=== PATIENT | female | born 1950 | race Caucasian/White ===

== ENCOUNTER 2017-01-07 01:15 | Inpatient (IN) | payer OTHER ==
[2017-01-07] VITALS (9 sets, daily range): BP systolic 107–173; BP diastolic 55–84; PULSE 95–108; RESP 15–20; Ht 152.4 cm; Wt 73.0 kg
[~2017-01-07] VITALS: Ht 152.4 cm; Wt 73.0 kg
[2017-01-07 02:41] LABS: AADO2 Arterial 24.8 mmHg (7.0-24.0); Allen Test ACCEPTAB; Arterial Base Excess 6.5 mmol/L (-3.0-3); Arterial COHb 0.3 % (0.0-3.0); Arterial Fraction of Oxyhgb 96.3 % (93.0-99.0); Arterial HCO3 33.7 mmol/L (22.0-26.0); Arterial MetHb 0.4 % (0.0-1.5); Arterial Total Hemglobin 13.5 g/dl (12.0-18.0); MODE NASAL CANNULA
[2017-01-07 02:55] LABS: BASOPHIL # 0.1 10^3/ul (0.0-0.1); EOSINOPHILS # 0.2 10^3/ul (0.0-0.5); HEMATOCRIT 40.4 % (37.0-47.0); HEMOGLOBIN 13.1 g/dl (12.0-16.0); LYMPHOCYTES # 1.3 10^3/ul (0.8-2.9); LYMPHOCYTES % 25.9 % (15.0-51.0); MEAN CORPUSCULAR HEMOGLOBIN 30.8 pg (29.0-33.0); MEAN CORPUSCULAR HGB CONC 32.4 g/dl (32.0-37.0); MEAN CORPUSCULAR VOLUME 95.1 fl (82.0-101.0); MONOCYTE # 0.4 10^3/ul (0.3-0.9); MONOCYTES % 8.9 % (0.0-11.0); PLATELET COUNT 241 10^3/UL (140-415); RED BLOOD COUNT 4.25 10^6/ul (4.20-5.40); RED CELL DISTRIBUTION WIDTH 13.5 % (11.5-14.5)
[2017-01-07 03:20] LABS: INR 1.03; PARTIAL THROMBOPLASTIN TIME 29.2 Sec (25.0-35.0); PROTIME 13.5 Sec (12.2-14.2); PT RATIO 1.1
[2017-01-07 03:23] LABS: ALANINE AMINOTRANSFERASE 59 IU/L (13-69); ALBUMIN 4.3 g/dl (3.3-4.9); ALBUMIN/GLOBULIN RATIO 1.22; ALKALINE PHOSPHATASE 227 IU/L (42-121); ANION GAP 15 (8-16); ASPARTATE AMINO TRANSFERASE 50 IU/L (15-46); BILIRUBIN,INDIRECT 0.3 mg/dl (0-1.1); BILIRUBIN,TOTAL 0.3 mg/dl (0.2-1.3); BLOOD UREA NITROGEN 11 mg/dl (7-20); CALCIUM 9.3 mg/dl (8.4-10.2); CARBON DIOXIDE 34 mmol/L (21-31); CHLORIDE 99 mmol/L (97-110); CREATININE 0.62 mg/dl (0.44-1.00); GLUCOSE 118 mg/dl (70-220); POTASSIUM 3.6 mmol/L (3.5-5.1); SODIUM 144 mmol/L (135-144); TOTAL PROTEIN 7.8 g/dl (6.1-8.1)
[2017-01-07 03:35] LABS: B-TYPE NATRIURETIC PEPTIDE 182 PG/ML (0-125)
[2017-01-07 03:36] LABS: TROPONIN-I < 0.012 ng/ml (0.00-0.12)
--- NOTE | 2017-01-07 03:42 | RADRPT ---
PROCEDURE: CHEST - 1 VIEW CLINICAL INDICATION: 66-year-old female with shortness of breath. TECHNIQUE: A single frontal AP upright portable view of the chest was performed. The images were reviewed on a PACS workstation. COMPARISON: None. FINDINGS: The cardiomediastinal silhouette is within normal limits. There is a shallow inspiration. There is b ilateral lower lung zone subsegmental atelectasis. A superimposed infiltrate cannot be excluded. The re is probable small left pleural effusion. There is no evidence for congestive heart failure. Ther e is no evidence for pneumothorax. Degenerative changes are seen within the spine. IMPRESSION: 1. Shallow inspiration. 2. Bilateral lower lung zone subsegmental atelectasis. 3. Probable small left pleural effusion. 4. Degenerative changes within the spine. .Douglas Rosales MD, Date Time Electronically viewed and signed by .Douglas Rosales MD, on 01/07/2017 03:42 .M/
--- NOTE | 2017-01-07 03:44 | RADRPT ---
PROCEDURE: CT BRAIN WITHOUT CONTRAST CLINICAL INDICATION: 66-year-old female with headaches. TECHNIQUE: The study was performed utilizing [employer] VCT 64-slice CT scanner. Direct axial sections were obtained from the foramen magnum to the vertex without the use of intravenous contrast material. Sagittal and coronal reformations were obtained. The study was repeated secondary to karin ent motion artifact. One or more the following dose reduction techniques were utilized: automated ex posure control, adjustment of the mA and/or kV according to patient's size or use of iterative recon struction technique. The images were viewed on a PACS workstation. CTD/vol = 90.0 mGy; Total Exam DL P = 1440.5 mGy-cm. COMPARISON: None. FINDINGS: There is mild degree of diffuse cortical and central atrophy with compensatory ventricular enlargeme nt. There is no evidence for mass effect or midline shift. There are periventricular areas of decr eased density consistent with microangiopathic ischemic changes. There is no evidence for acute int ra or extra-axial blood. Calcifications are seen within the intracranial carotid arteries bilaterall y. The bony calvarium is intact. There is minimal mucosal thickening within the ethmoid air cells bi laterally. No air-fluid levels are noted. The mastoid air cells are without significant soft tissue. IMPRESSION: 1. Mild diffuse atrophy. 2. Microangiopathic ischemic changes. 3. Minimal mucosal thickening ethmoid air cells. .Douglas Rosales MD, Date Time Electronically viewed and signed by .Douglas Rosales MD, on 01/07/2017 03:44 .M/
--- NOTE | 2017-01-07 05:41 | ERA ---
ER Documentation Chief Complaint Date/Time DATE: 01/07/17 TIME: 05:40 Chief Complaint SOB at rest for a couple of months worse in last 2 hours HPI This is a 66-year-old female comes in with shortness of breath at rest for a couple months worse in the last 2-3 hours. Denies any fevers or chills. Denies any nausea vomiting. Denies any chest pain. Denies any other current complaints. ROS All systems reviewed and are negative except as per history of present illness. Allergies Allergies: Coded Allergies: No Known Allergy (Unverified , 01/07/17) PMhx/Soc History of Surgery: Yes (hysterectomy 1996) Anesthesia Reaction: No Hx Neurological Disorder: No Hx Respiratory Disorders: No Hx Cardiac Disorders: Yes (HTN, high cholesterol) Hx Psychiatric Problems: No Hx Miscellaneous Medical Probl: Yes (fibromyalgia,osteoarthritis,cervical & lumbar spine degeneration) Hx Alcohol Use: No Hx Substance Use: No Hx Tobacco Use: No Smoking Status: Never smoker Physical Exam Vitals Vital Signs Date Time Temp Pulse Resp B/P Pulse Ox O2 Delivery O2 Flow Rate FiO2 01/07/17 05:02 93 21 148/70 98 Nasal Cannula 2.0 01/07/17 02:48 98 2.0 01/07/17 02:16 Nasal Cannula 2 01/07/17 01:55 Nasal Cannula 2.0 01/07/17 01:55 96 25 181/78 96 Nasal Cannula 2.0 01/07/17 01:19 97.5 96 20 135/72 94 Physical Exam Const: [] Head: Atraumatic Eyes: Normal Conjunctiva ENT: Normal External Ears, Nose and Mouth. Neck: Full range of motion..~ No meningismus. Resp: Clear to auscultation bilaterally Cardio: Regular rate and rhythm, no murmurs Abd: Soft, non tender, non distended. Normal bowel sounds Skin: No petechiae or rashes Back: No midline or flank tenderness Ext: No cyanosis, or edema Neur: Awake and alert Psych: Normal Mood and Affect Result Diagram: 01/07/1721401/07/17214 Results 24 hrs Laboratory Tests Test 01/07/17 01:49 01/07/17 02:15 Blood Gas Specimen Source Blood arterial Arterial Blood Date Drawn 01/07/2017 2:35:20 AM Arterial Blood pH (Temp corrected) 7.367 Arterial Blood pCO2 (Temp correct) 60.1mmhg Arterial Blood pO2 (Temp corrected) 96.6mmHG Arterial Blood HCO3 33.7mmol/L Arterial Blood Base Excess 6.5mmol/L Arterial Blood Oxygen Saturation 97.0mmHG Juan M Test ACCEPTAB Arterial Blood Gas Puncture Site Right Brachial Arterial Blood Carboxyhemoglobin 0.3% Arterial Blood Methemoglobin 0.4% Blood Gas A-a O2 Differential 24.8mmHg Oxyhemoglobin Percent 96.3% Total Hemoglobin 13.5g/dl Blood Gas Temperature 37.0C Blood Gas Modality NASAL CANNULA FiO2 27.0% Blood Gas Notified Whom MG Blood Gas Notified Time 01/07/2017 2:41:47 AM White Blood Count 5.010^3/ul Red Blood Count 4.2510^6/ul Hemoglobin 13.1g/dl Hematocrit 40.4% Mean Corpuscular Volume 95.1fl Mean Corpuscular Hemoglobin 30.8pg Mean Corpuscular Hemoglobin Concent 32.4g/dl Red Cell Distribution Width 13.5% Platelet Count 26825^3/UL Mean Platelet Volume 10.0fl Neutrophils % 61.0% Lymphocytes % 25.9% Monocytes % 8.9% Eosinophils % 3.0% Basophils % 1.0% Nucleated Red Blood Cells % 0.0/100WBC Neutrophils # 3.010^3/ul Lymphocytes # 1.310^3/ul Monocytes # 0.410^3/ul Eosinophils # 0.210^3/ul Basophils # 0.110^3/ul Nucleated Red Blood Cells # 0.010^3/ul Prothrombin Time 13.5Sec Prothrombin Time Ratio 1.1 INR International Normalized Ratio 1.03 Activated Partial Thromboplast Time 29.2Sec Sodium Level 144mmol/L Potassium Level 3.6mmol/L Chloride Level 99mmol/L Carbon Dioxide Level 34mmol/L Anion Gap 15 Blood Urea Nitrogen 11mg/dl Creatinine 0.62mg/dl Glucose Level 118mg/dl Calcium Level 9.3mg/dl Total Bilirubin 0.3mg/dl Direct Bilirubin 0.00mg/dl Indirect Bilirubin 0.3mg/dl Aspartate Amino Transf (AST/SGOT) 50IU/L Alanine Aminotransferase (ALT/SGPT) 59IU/L Alkaline Phosphatase 227IU/L Troponin I < 0.012ng/ml B-Type Natriuretic Peptide 182PG/ML Total Protein 7.8g/dl Albumin 4.3g/dl Globulin 3.50g/dl Albumin/Globulin Ratio 1.22 Procedures/MDM EKG: Rate/Rhythm: [Normal Sinus Rhythm] QRS, ST, T-waves: [No changes consistent w/ acute ischemia] Impression: [No evidence of ischemia or arrhythmia] Chest X-ray 1V Interpreted by me: Soft Tissue: No acute abnormalities Bones: No acute abnormalities Mediastinum/Cardiac Silhouette/Lungs: [No acute abnormalities] Female shortness of breath. Arterial blood gas shows retained CO2. Respiratory acidosis likely secondary to undiagnosed underlying lung issue. Patient will be admitted to Dr. Young who is on-call for further evaluation and management Departure Diagnosis: Primary Impression: Shortness of breath Additional Impression: Respiratory acidosis Condition: Serious NBA NAYAK Jan 07, 2017 05:41
[2017-01-07] MEDS ORDERED: DICL50TA11 PO (08:10)
[2017-01-07] MEDS ORDERED: GABA300T24 PO (08:12)
[2017-01-07] MEDS ORDERED: ATOR40TA68 PO (08:12)
[2017-01-07] MEDS ORDERED: DOCU100C2 PO (08:12)
[2017-01-07] MEDS ORDERED: BUPR75TA9 PO (08:12)
[2017-01-07] MEDS ORDERED: hydrALAzine 20 MG INJ IV PRN (11:30)
[2017-01-07] MEDS: LEVALBUTEROL (NEB) 0.63 MG/3 ML AMP HHN PRN ×3 (12:35→23:12)
[2017-01-07] MEDS ORDERED: LOSA25TA5 PO (14:12)
--- NOTE | 2017-01-07 16:30 | CONS ---
Date/Time of Note Date/Time of Note DATE: 01/07/17 TIME: 16:30 Consultation Date/Type/Reason Admit Date/Time Jan 07, 2017 at 05:41 Date of Consultation: Jan 07, 2017 Type of Consultation: pulmonary Hx of Present Illness dictated # [id number] Social History Smoking Status: Never smoker Exam/Review of Systems Vital Signs Vitals Vital Signs Date Time Temp Pulse Resp B/P Pulse Ox O2 Delivery O2 Flow Rate FiO2 01/07/17 16:13 108 01/07/17 15:10 97.6 20 127/60 95 01/07/17 08:35 3.0 01/07/17 06:52 Nasal Cannula Results Result Diagram: 01/07/17 0215 01/07/17 0215 Results 24 hrs Laboratory Tests Test 01/07/17 01:49 01/07/17 02:15 Blood Gas Specimen Source Blood arterial Arterial Blood Date Drawn 01/07/2017 2:35:20 AM Arterial Blood pH (Temp corrected) 7.367 Arterial Blood pCO2 (Temp correct) 60.1 H Arterial Blood pO2 (Temp corrected) 96.6 Arterial Blood HCO3 33.7 H Arterial Blood Base Excess 6.5 H Arterial Blood Oxygen Saturation 97.0 Juan M Test ACCEPTAB Arterial Blood Gas Puncture Site Right Brachial Arterial Blood Carboxyhemoglobin 0.3 Arterial Blood Methemoglobin 0.4 Blood Gas A-a O2 Differential 24.8 H Oxyhemoglobin Percent 96.3 Total Hemoglobin 13.5 Blood Gas Temperature 37.0 Blood Gas Modality NASAL CANNULA FiO2 27.0 Blood Gas Notified Whom MG Blood Gas Notified Time 01/07/2017 2:41:47 AM White Blood Count 5.0 Red Blood Count 4.25 Hemoglobin 13.1 Hematocrit 40.4 Mean Corpuscular Volume 95.1 Mean Corpuscular Hemoglobin 30.8 Mean Corpuscular Hemoglobin Concent 32.4 Red Cell Distribution Width 13.5 Platelet Count 241 Mean Platelet Volume 10.0 Neutrophils % 61.0 Lymphocytes % 25.9 Monocytes % 8.9 Eosinophils % 3.0 Basophils % 1.0 Nucleated Red Blood Cells % 0.0 Neutrophils # 3.0 Lymphocytes # 1.3 Monocytes # 0.4 Eosinophils # 0.2 Basophils # 0.1 Nucleated Red Blood Cells # 0.0 Prothrombin Time 13.5 Prothrombin Time Ratio 1.1 INR International Normalized Ratio 1.03 Activated Partial Thromboplast Time 29.2 Sodium Level 144 Potassium Level 3.6 Chloride Level 99 Carbon Dioxide Level 34 H Anion Gap 15 Blood Urea Nitrogen 11 Creatinine 0.62 Glucose Level 118 Calcium Level 9.3 Total Bilirubin 0.3 Direct Bilirubin 0.00 Indirect Bilirubin 0.3 Aspartate Amino Transf (AST/SGOT) 50 H Alanine Aminotransferase (ALT/SGPT) 59 Alkaline Phosphatase 227 H Troponin I < 0.012 B-Type Natriuretic Peptide 182 H Total Protein 7.8 Albumin 4.3 Globulin 3.50 H Albumin/Globulin Ratio 1.22 Medications Medications Current Medications Hydralazine HCl (Apresoline) 20 mg Q6H PRN IV for SBP >165 Last administered on 01/07/17t 11:52; Admin Dose 20 MG; Start 01/07/17 at 11:30 Atorvastatin Calcium (Lipitor) 40 mg QHS PO ; Start 01/07/17 at 21:00 Bupropion HCl (Wellbutrin) 75 mg BID PO ; Start 01/07/17 at 21:00 Docusate Sodium (Colace) 100 mg DAILY PO ; Start 01/08/17 at 09:00 Losartan Potassium (Cozaar) 25 mg DAILY PO ; Start 01/08/17 at 09:00 Gabapentin 300 mg 300 mg TID PO ; Start 01/07/17 at 21:00 Potassium Chloride/Dextrose/ Sod Cl (D5-1/2ns + KCl 20 Meq) 1,000 ml @ 50 mls/ hr Q20H IV ; Start 01/07/17 at 15:30 BILL DELGADILLO Jan 07, 2017 16:30
--- NOTE | 2017-01-07 16:41 | HP ---
DATE OF ADMISSION: 01/07/2017 CHIEF COMPLAINT: Shortness of breath. HISTORY OF PRESENT ILLNESS: The patient is a 66-year-old female, with history of fibromyalgia, osteoarthritis, and cervical stenosis, with bilateral upper extremity weakness. Patient with history of subdural hematoma diagnosed in April of this year and significant decrease in mobility. Patient is awake, alert; however, cannot provide detailed history. Most of the history was obtained from patient's daughter at the bedside, who is the caregiver for the patient. Apparently, patient was seen by her primary care physician, Dr. Rodriguez. Family stated that the patient deteriorated in mobility and also got more confused and forgetful, and patient was ordered to undergo MRI of the brain. However, patient could not undergo outpatient MRI, due to the fact that she could not lie down flat and appeared in respiratory distress and was sent to the emergency room of [facility] [place]. On evaluation in the emergency room, patient underwent chest x- ray, which revealed shallow inspiration, bilateral low lung zone subsegmental atelectasis, probable small left pleural effusion and degenerative changes within the spine. A superimposed infiltrate cannot be excluded. Patient also underwent brain CT, which may revealed mild diffuse atrophy, microangiopathic ischemic changes, and minimal mucosal thickening, ethmoid air cells. Patient also was placed on supplemental oxygen for complaints of shortness of breath. Patient underwent ABG, which revealed respiratory acidosis. Patient denies any fever. Denies any nausea or vomiting; however, complains of mild epigastric tenderness on palpation. During the examination patient also complains of left upper extremity pain and mild chest pain, and patient is admitted for further evaluation and management to telemetry floor. PAST MEDICAL HISTORY: Per HPI. PAST SURGICAL HISTORY: Patient had a hysterectomy in 1996. FAMILY HISTORY: Noncontributory. SOCIAL HISTORY: Patient lives with her daughter and . Patient had no prior history of alcohol use, tobacco use or illicit drug use. ALLERGIES: NO KNOWN ALLERGIES. HOME MEDICATIONS: Include: 1. Atorvastatin. 2. Wellbutrin. 3. Diclofenac sodium. 4. Colace. 5. Cozaar. 6. Gabapentin. REVIEW OF SYSTEMS: A 12-point review of system is negative, unless what is mentioned in HPI. PHYSICAL EXAMINATION: GENERAL: Well-developed, obese female, currently is awake, alert, on supplemental oxygen. VITAL SIGNS: Temperature is 97.5, pulse is 93, blood pressure 148/70, , oxygen saturation 98 percent on 2 L nasal cannula. HEENT: Head is atraumatic, normocephalic. Pupils equal, round, reactive to light and accommodation. Oral mucosa is pink, moist. NECK: Supple. No cervical lymphadenopathy. No thyromegaly. LUNGS: Diminished at the bases. Clear in the upper lobes. No rhonchi or rales noted. CARDIOVASCULAR: Normal S1, S2. No murmurs, gallops, clicks, rubs noted. ABDOMEN: Round, soft, nondistended. Patient has epigastric tenderness, has no guarding, no rebound tenderness. EXTREMITIES: Mild edema, 2+. SKIN: There is no rash, petechiae noted. NEUROLOGICAL: Patient is awake, alert, and oriented to name and situation and moves all extremities. LABORATORY DATA: On admission, CBC: White blood cells 5.0, hemoglobin 13.1, hematocrit 40.4, platelets 241. Chemistry: Sodium was 144, potassium 3.6, chloride 99, carbon dioxide 34, anion gap 15, BUN is 11, creatinine 0.62, glucose 118. AST is 50, ALT 59, alkaline phosphatase 227. Troponin less than 0.012. BNP is 182. PT is 13.1, INR is 1.03, aPTT is 29.2. ASSESSMENT AND PLAN: 1. Hypercapnic respiratory failure. Going to continue patient on supplemental oxygen and breathing treatment for shortness of breath. Dr. Jasso is asked to see patient in Pulmonology consultation. Will start patient on Levaquin for possible community-acquired pneumonia, bronchitis. 2. Rule out acute coronary syndrome. Will obtain cardiac enzymes q.[address] Patel is asked to see patient in Cardiology consultation since patient complains of chest pain. 3. History of subdural hematoma, with recent mental and physical decline in the last 6 months. Will obtain MRI of the brain when patient is more stable. 4. Possible cervical stenosis. 5. History of fibromyalgia. PLAN: 1. Will start Pepcid for peptic ulcer disease prophylaxis and Lovenox for deep venous thrombosis prophylaxis. 2. Continue Cozaar for hypertension. 3. Further recommendations based on clinical course. 4. Plan of care discussed with Dr. Venegas. Dictated By: Cinda Barlow NP /fnt/adonis /Document#: [id number]
[2017-01-07] MEDS: D5W-0.45 NACL + KCL 20 MEQ 1,000 ML IV SCH (16:52)
[2017-01-07 17:01] LABS: CK-MB 5.21 ng/ml (0.0-2.4); TROPONIN-I 0.04 ng/ml (0.00-0.12)
--- NOTE | 2017-01-07 17:05 | CONS ---
Date/Time of Note Date/Time of Note DATE: 01/07/17 TIME: 17:00 Assessment/Plan Assessment/Plan Additional Assessment/Plan Dyspnea Weakness -Patient with symptoms of dyspnea with lying down as well as not feeling she can take in a deep breath. Initial ECG with no significant ischemic abnormalities, first set of cardiac enzymes are negative. Will obtain serial cardiac enzymes, echocardiogram. Discussion with patient's daughter, patient with progressive weakness over the past 6 months and almost unable to ambulate informing contractures in her upper arms. Her voice has changed as well. Symptoms are concerning for possible neurologic pathology as etiology of her symptoms. Would recommend neurologic evaluation as well. Consultation Date/Type/Reason Admit Date/Time Jan 07, 2017 at 05:41 Type of Consultation: cv Reason for Consultation Shortness of breath Hx of Present Illness This is a 66-year-old female with past medical history of fibromyalgia, progressive weakness over the past 6 months who presents secondary to shortness of breath. Patient was planned for MRI of the brain today as per the family and could not lie down flat because of shortness of breath. Patient has been having issues with shortness of breath with lying down flat progressing over the past few weeks. Her activity has been quite limited by her severe weakness. She also feels short winded at times with speaking. She feels at times she cannot take in a deep breath. She denies any chest pain but does complain of pain in her neck, shoulders and bilateral arms. She also complains of lower extremity weakness and progressive edema as well over the past few months. Patient is undergoing workup for these reasons. 12 point review of systems was performed with all pertinent positives and negatives mentioned above and all else is negative Past Medical History Fibromyalgia Social History Alcohol Use: none Smoking Status: Never smoker Other Social History Lives at home with family Exam/Review of Systems Vital Signs Vitals Vital Signs Date Time Temp Pulse Resp B/P Pulse Ox O2 Delivery O2 Flow Rate FiO2 01/07/17 16:13 108 01/07/17 15:10 97.6 20 127/60 95 01/07/17 08:35 3.0 01/07/17 06:52 Nasal Cannula Exam Slow in responding, appears weak, family at bedside Constitutional: alert, oriented Head: normocephalic Respiratory: other (Coarse breath sounds bilaterally, no wheezing) Cardiovascular: other (S1-S2 heard, no murmurs appreciated), regular rate and rhythm Gastrointestinal: bowel sounds, non-tender, soft Extremities: edema Results Result Diagram: 01/07/17 0215 01/07/17 0215 Results 24 hrs Laboratory Tests Test 01/07/17 01:49 01/07/17 02:15 01/07/17 16:20 Blood Gas Specimen Source Blood arterial Arterial Blood Date Drawn 01/07/2017 2:35:20 AM Arterial Blood pH (Temp corrected) 7.367 Arterial Blood pCO2 (Temp correct) 60.1 H Arterial Blood pO2 (Temp corrected) 96.6 Arterial Blood HCO3 33.7 H Arterial Blood Base Excess 6.5 H Arterial Blood Oxygen Saturation 97.0 Juan M Test ACCEPTAB Arterial Blood Gas Puncture Site Right Brachial Arterial Blood Carboxyhemoglobin 0.3 Arterial Blood Methemoglobin 0.4 Blood Gas A-a O2 Differential 24.8 H Oxyhemoglobin Percent 96.3 Total Hemoglobin 13.5 Blood Gas Temperature 37.0 Blood Gas Modality NASAL CANNULA FiO2 27.0 Blood Gas Notified Whom MG Blood Gas Notified Time 01/07/2017 2:41:47 AM White Blood Count 5.0 Red Blood Count 4.25 Hemoglobin 13.1 Hematocrit 40.4 Mean Corpuscular Volume 95.1 Mean Corpuscular Hemoglobin 30.8 Mean Corpuscular Hemoglobin Concent 32.4 Red Cell Distribution Width 13.5 Platelet Count 241 Mean Platelet Volume 10.0 Neutrophils % 61.0 Lymphocytes % 25.9 Monocytes % 8.9 Eosinophils % 3.0 Basophils % 1.0 Nucleated Red Blood Cells % 0.0 Neutrophils # 3.0 Lymphocytes # 1.3 Monocytes # 0.4 Eosinophils # 0.2 Basophils # 0.1 Nucleated Red Blood Cells # 0.0 Prothrombin Time 13.5 Prothrombin Time Ratio 1.1 INR International Normalized Ratio 1.03 Activated Partial Thromboplast Time 29.2 Sodium Level 144 Potassium Level 3.6 Chloride Level 99 Carbon Dioxide Level 34 H Anion Gap 15 Blood Urea Nitrogen 11 Creatinine 0.62 Glucose Level 118 Calcium Level 9.3 Total Bilirubin 0.3 Direct Bilirubin 0.00 Indirect Bilirubin 0.3 Aspartate Amino Transf (AST/SGOT) 50 H Alanine Aminotransferase (ALT/SGPT) 59 Alkaline Phosphatase 227 H Troponin I < 0.012 Pending B-Type Natriuretic Peptide 182 H Total Protein 7.8 Albumin 4.3 Globulin 3.50 H Albumin/Globulin Ratio 1.22 Creatine Kinase 565 H Creatine Kinase Index Pending Creatinine Kinase MB (Mass) Pending Medications Medications Current Medications Hydralazine HCl (Apresoline) 20 mg Q6H PRN IV for SBP >165 Last administered on 01/07/17 11:52; Admin Dose 20 MG; Start 01/07/17 at 11:30 Atorvastatin Calcium (Lipitor) 40 mg QHS PO ; Start 01/07/17 at 21:00 Bupropion HCl (Wellbutrin) 75 mg BID PO ; Start 01/07/17 at 21:00 Docusate Sodium (Colace) 100 mg DAILY PO ; Start 01/08/17 at 09:00 Losartan Potassium (Cozaar) 25 mg DAILY PO ; Start 01/08/17 at 09:00 Gabapentin 300 mg 300 mg TID PO ; Start 01/07/17 at 21:00 Potassium Chloride/Dextrose/ Sod Cl (D5-1/2ns + KCl 20 Meq) 1,000 ml @ 50 mls/ hr Q20H IV Last administered on 01/07/17 16:52; Admin Dose 50 MLS/HR; Start at 15:30 Procedures Procedures ECG demonstrates sinus tachycardia 108 bpm, QRS 86 ms, no significant ischemic STT wave abnormalities Carlos Patel DO Jan 07, 2017 17:05
--- NOTE | 2017-01-07 17:31 | RADRPT ---
Echocardiogram Report Patient Name: LUISA BOND Gender: Female Date: 1950 Study Date: 07-Jan-2017 Medical Technologist Hematology: Kristy [facility] Location: 506 Ref. Physician: KRISTOPHER REED Quality: Adequate Procedures: Transthoracic echocardiogram with complete 2D, M-Mode, and doppler examination. Indications: Evaluate Left Ventricular function. 2D/M Mode Doppler Measurement Value Normal Ranges Measurement Value Normal Ranges LVIDd 2D 3.1 3.5 - 5.6 cm AV Peak Rashad 1.5 m/sec LVIDs 2D 2.1 2.1 - 4.1 cm AV Peak PG 9.0 mmHg FS 2D 30.7 % LVOT Peak Rashad 1.1 m/sec LVPWd 2D 1.5 0.6 - 1.1 cm LVOT Peak PG 5.0 mmHg IVSd 2D 1.5 0.6 - 1.1 cm MV E Peak Rashad 0.7 m/sec IVS/LVPW 2D 1.0 MV A Peak Rashad 1.0 m/sec AoR Diam 2D 2.7 2.0 - 3.7 cm MV E/A 0.6 LA/Ao 2D 1 0 - 1 MV Decel Time 144 msec EDV 2D 29.5 cm3 MV E/A 0.6 ESV 2D 9.8 cm3 LA Dimen 2D 2.3 2.3 - 4.0 cm Findings Left Ventricle: Overall, normal left ventricular systolic function. Not all segments visualized. Normal left ventricular cavity size. Moderate concentric left ventricular hypertrophy. Ejection fraction is visually estimated at 65 %. Abnormal Diastolic Function. Right Ventricle: Normal right ventricular size. Normal right ventricular systolic function. Left Atrium: The left atrium is normal in size. Right Atrium: The right atrium is normal in size. Mitral Valve: Mild mitral leaflet calcification. Mild mitral annular calcification. Trace mitral regurgitation. Aortic Valve: Aortic sclerosis without stenosis. Trace aortic valve regurgitation. Tricuspid Valve: Normal appearance and function of the tricuspid valve with trace physiologic regurgitation. Pulmonic Valve: Pulmonic valve not well visualized. There is trace pulmonic regurgitation. Pericardium: Normal pericardium with no significant pericardial effusion. Aorta: Normal aortic root. IVC: Normal size and normal respiratory collapse consistent with normal right atrial pressure. Conclusions Overall, normal left ventricular systolic function. Not all segments visualized. Normal left ventricular cavity size. Moderate concentric left ventricular hypertrophy. Ejection fraction is visually estimated at 65 %. Abnormal Diastolic Function. Normal right ventricular size. Normal right ventricular systolic function. The left atrium is normal in size. The right atrium is normal in size. No significant valvular stenosis or regurgitation seen. Normal pericardium with no significant pericardial effusion. Electronically Signed By: Carlos Patel 07-Jan-2017 17:30:24 -0700 Patient Name: LUISA BOND Study Date: 07-Jan-[id number]
--- NOTE | 2017-01-07 18:19 | RADRPT ---
PROCEDURE: Ultrasound of the bilateral lower extremity venous system. CLINICAL INDICATION: Bilateral leg pain and swelling, deep venous thrombosis TECHNIQUE: Crook scale with and without compression, color doppler, spectral doppler of the venous system of the bilateral lower extremities was performed. Venous augmentation maneuvers were utilized . COMPARISON: No prior studies are available for comparison. FINDINGS: Right: Common femoral vein: Patent. Femoral vein: Patent. Popliteal vein: Patent. Calf veins: Patent. No soft tissue abnormalities are identified. Left: Common femoral vein: Patent. Femoral vein: Patent. Popliteal vein: Patent. Calf veins: Patent. No soft tissue abnormalities are identified. IMPRESSION: No evidence of a deep vein thrombosis within the bilateral lower extremities. RPTAT: AADD .Keith Galvan MD, MD Date Time Electronically viewed and signed by .Keith Galvan MD, on 01/07/2017 18:19 .B/
[2017-01-07] MEDS ORDERED: GABAPENTIN 300 MG CAP ONE (19:09)
[2017-01-07] MEDS: GABAPENTIN 300 MG CAP PO SCH (19:11)
[2017-01-07] MEDS: ATORVASTATIN 40 MG TAB PO SCH (21:20)
[2017-01-07] MEDS: BUPROPION 75 MG TAB PO SCH (21:20)
[2017-01-07 21:59] LABS: CK-MB 4.83 ng/ml (0.0-2.4); TROPONIN-I 0.056 ng/ml (0.00-0.12)
[2017-01-08] VITALS (16 sets, daily range): BP systolic 116–156; BP diastolic 57–74; PULSE 95–107; RESP 17–20
--- NOTE | 2017-01-08 02:15 | CONS ---
DATE OF ADMISSION: 01/07/2017 DATE OF CONSULTATION: 01/07/2017 REFERRING PHYSICIAN: Dr. Venegas. REASON FOR CONSULTATION: Evaluation of hypercapnic respiratory failure. HISTORY OF PRESENT ILLNESS: Ms. Sharp is a pleasant 66-year-old lady who came into the emergency room with a few-day history of increasing shortness of breath. According to the patient's family, the patient was supposed to undergo MRI of the brain and neck for evaluation of chronic neck pain, as well as a right- sided weakness, but was deemed too high of a risk because of patient's lethargy. The MRI study was canceled and the patient was sent home. However, according to the daughter over the next day, the patient became increasingly more lethargic. She was brought into the ER where an ABG was done, which is showing hypercapnia without any significant respiratory decompensation or respiratory acidosis. By the time I saw the patient, the patient is completely awake, alert, feeling better. Denies any chest pain. Complains of shortness of breath upon exertion, as well as shortness of breath upon lying down for the last several weeks. Denies any fever. Complains of weak nonspecific chest pain across the upper part of the left chest, increased by certain movements. The patient also is having increasing weakness involving the right side of the body that was necessitating MRI study, which was not performed. The patient denies any abdominal pain, nausea, vomiting. PAST MEDICAL HISTORY: 1. History of chronic neck pain. 2. According to the patient's daughter, the patient is getting increasingly more lethargic over the last few weeks. 3. No history of any coronary artery disease. 4. Hypertension. 5. Diabetes. 6. History of hysterectomy. 7. No history of any known CHF. 8. Possible underlying obstructive sleep apnea. 9. No history of any asthma. 10. Patient also with a history of fibromyalgia. MEDICATION: Patient is currently on: 1. D5 half-normal saline at a KVO. 2. Atorvastatin 40 mg a day. 3. Wellbutrin 75 mg b.i.d. 4. Colace 100 mg daily. 5. Neurontin 300 mg t.i.d. 6. Hydralazine on a p.r.n. basis IV. 7. Xopenex q.4 hours. 8. Cozaar 25 mg daily. ALLERGIES: NONE. SOCIAL HISTORY: Never smoked. No history of alcohol or drug abuse. FAMILY HISTORY: Patient is . She has 4 children. 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 REVIEW OF SYSTEMS: Denies any headache, visual changes, sinus symptoms, postnasal drip, dysphagia or odynophagia. Complains of dyspnea on exertion. Complains of orthopnea. Has gained weight. Denies any edema. Complains of snoring and daytime sleepiness. Denies any urinary symptoms. Denies any melena or hematochezia. PHYSICAL EXAMINATION: GENERAL: Elderly woman, awake, currently in no distress. VITAL SIGNS: Temperature is 98 degrees Fahrenheit, respiratory rate is 18 per minute, blood pressure is 127/64, O2 sat 95 percent. HEENT: Supple neck. No JVD. No lymphadenopathy. Midline trachea. No thyromegaly. Pharynx is clear. No neck bruits. Patient is edentulous and wears upper dentures. CHEST: Diminished breath sounds bilaterally without any added sounds. CARDIAC: S1, S2 audible. No murmurs. Regular rhythm. ABDOMEN: Soft, nontender. No organomegaly. Bowel sounds audible. EXTREMITIES: No edema. Pulses 1+ bilaterally. SCALE AGENT: No focal motor deficit. Chest. IMAGING STUDIES: Chest x-ray was reviewed from today, which is showing mild bibasilar atelectasis. LABORATORY: ABG done at 1:49 a.m. today on 27 percent FiO2: pH 7.36, CO2 of 60, PO2 of 96, O2 sat 95 percent. Sodium 144, potassium 3.6, chloride 99, bicarb 34, BUN 11, creatinine 0.6. Alk phos 227, AST of 50, ALT of 59. BNP level of 182. White count 5, hemoglobin 13.1, platelet count of 241. ASSESSMENT: 1. Patient admitted for shortness of breath due to hypoventilation, possibly from cervical spine disease. Patient was supposed to have MRI of the cervical spine done, which could not be done because of her compromised respiratory status. 2. Possible underlying sleep apnea. 3. Fibromyalgia. 4. Diabetes and hypertension. RECOMMENDATIONS: Start BiPAP with 12/5, 40 percent FiO2 with a backup rate of 16. Continue current supportive care. Dictated By: Iglesia Jasso MD /lan/[email or web address] /Document#: [id number]
[2017-01-08 07:32] LABS: BASOPHIL # 0.1 10^3/ul (0.0-0.1); BASOPHILS % 0.8 % (0.0-2.0); EOSINOPHILS # 0.1 10^3/ul (0.0-0.5); EOSINOPHILS % 1.5 % (0.0-7.0); HEMATOCRIT 37.3 % (37.0-47.0); LYMPHOCYTES # 0.9 10^3/ul (0.8-2.9); LYMPHOCYTES % 14.8 % (15.0-51.0); MEAN CORPUSCULAR HEMOGLOBIN 31.2 pg (29.0-33.0); MEAN CORPUSCULAR HGB CONC 32.2 g/dl (32.0-37.0); MEAN CORPUSCULAR VOLUME 96.9 fl (82.0-101.0); MEAN PLATELET VOLUME 10.1 fl (7.4-10.4); MONOCYTE # 0.5 10^3/ul (0.3-0.9); NEUTROPHIL # 4.4 10^3/ul (1.6-7.5); NEUTROPHILS % 74.7 % (39.0-77.0); PLATELET COUNT 238 10^3/UL (140-415); RED BLOOD COUNT 3.85 10^6/ul (4.20-5.40); RED CELL DISTRIBUTION WIDTH 13.4 % (11.5-14.5); WHITE BLOOD COUNT 5.9 10^3/ul (4.8-10.8)
[2017-01-08 08:09] LABS: CALCIUM 8.7 mg/dl (8.4-10.2); CREATININE 0.52 mg/dl (0.44-1.00); POTASSIUM 3.6 mmol/L (3.5-5.1)
[2017-01-08] MEDS: DOCUSATE SODIUM 100 MG CAP PO SCH (09:19)
[2017-01-08] MEDS: GABAPENTIN 300 MG CAP PO SCH ×3 (09:19→21:32)
[2017-01-08] MEDS: BUPROPION 75 MG TAB PO SCH ×2 (09:19→21:32)
[2017-01-08] MEDS: LOSARTAN 25 MG TAB PO SCH (09:20)
[2017-01-08] MEDS: D5W-0.45 NACL + KCL 20 MEQ 1,000 ML IV SCH (11:30)
--- NOTE | 2017-01-08 11:52 | CONS ---
Date/Time of Note Date/Time of Note DATE: 01/08/17 TIME: 11:44 Assessment/Plan Assessment/Plan Chief Complaint/Hosp Course 66 yo female with history of cervical degenerative disease, frequent falls prior SDH admitted with worsening SOB. CTH showed no acute process, sub-acute/chronic ischemic changes notable in Right MCA territory diffuse small vessel disease. Recommendations: Obtain MRI Brain and MRI Cervical Spine without contrast Check CPK, aldolase, B12, TSH would also recommend further outpatient EMG/NCV studies to evaluate for neuromuscular disease will follow Problems: Consultation Date/Type/Reason Admit Date/Time Jan 07, 2017 at 05:41 Date of Consultation: Jan 08, 2017 Type of Consultation: Neurology Reason for Consultation evaluation for neuromuscular disease Referring Provider: KRISTOPHER REED Hx of Present Illness 66 year old female with history of SDH few months ago with recurrent falls, fibromyalgia, chronic neck pain admitted with worsening SOB. She was scheduled to have an MRI Brain and Neck for evaluation of neck pain and complaint of recent right sided weakness, but was unable to tolerate due to SOB was unable to lay flat brought into the ER for further evaluation. Per daughter she reports her mother has slowed down over the past 7 months, is less sharp than she used to be, has recent difficulty ambulating due to this right sided weakness with falls, complaining of recent difficulty swallowing as well and has lost 10-15 pounds in the past few months. fatigue chest pain right sided weakness SOB Social History Alcohol Use: none Smoking Status: Never smoker Exam/Review of Systems Vital Signs Vitals Vital Signs Date Time Temp Pulse Resp B/P Pulse Ox O2 Delivery O2 Flow Rate FiO2 01/08/17 11:29 98.7 93 17 116/57 98 01/08/17 08:00 Nasal Cannula 3.0 01/08/17 05:35 40 Intake and Output 01/07/17 01/07/17 01/08/17 15:00 23:00 07:00 Intake Total 250 ml Balance 250 ml Exam awake and alert flat affected oriented to self hospital date and family follows commands no aphasia CN: JOE, VFF, EOMI, no sig facial asymmetry hypophonic voice tongue fasciculations are present Motor: lifts both UE anti-gravity with distal weakness present in left hand from prior fracture 3/5 strength weakness more notable in the right compared to left LE - LLE 4-/5 strength, RLE 3/5 strength Coordination difficult to perform due to weakness in UE Reflexes 2+ UE, absent Knee jerk and AJ patient unable to ambulate requires more than 2 person assist Results Result Diagram: 01/08/17 0701 01/08/17 0701 Results 24 hrs Laboratory Tests Test 01/07/17 16:20 01/07/17 20:32 01/08/17 07:01 Creatine Kinase 565 H 580 H Creatine Kinase Index 0.9 0.8 Creatinine Kinase MB (Mass) 5.21 H 4.83 H Troponin I 0.040 0.056 White Blood Count 5.9 Red Blood Count 3.85 L Hemoglobin 12.0 Hematocrit 37.3 Mean Corpuscular Volume 96.9 Mean Corpuscular Hemoglobin 31.2 Mean Corpuscular Hemoglobin Concent 32.2 Red Cell Distribution Width 13.4 Platelet Count 238 Mean Platelet Volume 10.1 Neutrophils % 74.7 Lymphocytes % 14.8 L Monocytes % 8.0 Eosinophils % 1.5 Basophils % 0.8 Nucleated Red Blood Cells % 0.0 Neutrophils # 4.4 Lymphocytes # 0.9 Monocytes # 0.5 Eosinophils # 0.1 Basophils # 0.1 Nucleated Red Blood Cells # 0.0 Sodium Level 138 Potassium Level 3.6 Chloride Level 98 Carbon Dioxide Level 36 H Anion Gap 8 Blood Urea Nitrogen 8 Creatinine 0.52 Glucose Level 134 Calcium Level 8.7 Medications Medications Current Medications Hydralazine HCl (Apresoline) 20 mg Q6H PRN IV for SBP >165 Last administered on 01/07/17 11:52; Admin Dose 20 MG; Start 01/07/17 at 11:30 Atorvastatin Calcium (Lipitor) 40 mg QHS PO Last administered on 01/07/17 21: 20; Admin Dose 40 MG; Start 01/07/17 at 21:00 Bupropion HCl (Wellbutrin) 75 mg BID PO Last administered on 01/08/17 09:19; Admin Dose 75 MG; Start 01/07/17 at 21:00 Docusate Sodium (Colace) 100 mg DAILY PO Last administered on 01/08/17 09:19; Admin Dose 100 MG; Start 01/08/17 at 09:00 Losartan Potassium (Cozaar) 25 mg DAILY PO Last administered on 01/08/17 09:20 ; Admin Dose 25 MG; Start 01/08/17 at 09:00 Gabapentin 300 mg 300 mg TID PO Last administered on 01/08/17 09:19; Admin Dose 300 MG; Start 01/07/17 at 21:00 Potassium Chloride/Dextrose/ Sod Cl (D5-1/2ns + KCl 20 Meq) 1,000 ml @ 50 mls/ hr Q20H IV Last administered on 01/07/17 16:52; Admin Dose 50 MLS/HR; Start at 15:30 FABRICIO PRITCHETT MD Jan 08, 2017 11:52
--- NOTE | 2017-01-08 12:06 | CONS ---
Date/Time of Note Date/Time of Note DATE: 01/08/17 TIME: 12:04 Consult Date/Type/Reason Admit Date/Time Jan 07, 2017 at 05:41 Initial Consult Date 01/08/17 Type of Consultation: Pulmonary Ordering Provider: KRISTOPHER REED Subjective Patient comfortable this morning no respiratory distress Objective Vital Signs Date Time Temp Pulse Resp B/P Pulse Ox O2 Delivery O2 Flow Rate FiO2 01/08/17 11:29 98.7 93 17 116/57 98 01/08/17 08:00 Nasal Cannula 3.0 01/08/17 05:35 40 Intake and Output 01/07/17 01/07/17 01/08/17 15:00 23:00 07:00 Intake Total 250 ml Balance 250 ml Exam GENERAL: Elderly lady comfortable at rest no acute distress VITAL SIGNS: per chart NECK: Supple. No JVD or lymphadenopathy. CARDIAC EXAM: S1, S2. No added sounds or murmurs. CHEST: clear bilaterally, No added sounds, rales or wheezes ABDOMEN: Soft, nontender. No guarding or rebound. EXTREMITIES: No cyanosis, clubbing or edema. NEUROLOGIC: Generalized weakness. No focal deficits. Results/Medications Result Diagram: 01/08/17 0701 01/08/17 0701 Results 24 hrs Laboratory Tests Test 01/07/17 16:20 01/07/17 20:32 01/08/17 07:01 Creatine Kinase 565 H 580 H Creatine Kinase Index 0.9 0.8 Creatinine Kinase MB (Mass) 5.21 H 4.83 H Troponin I 0.040 0.056 White Blood Count 5.9 Red Blood Count 3.85 L Hemoglobin 12.0 Hematocrit 37.3 Mean Corpuscular Volume 96.9 Mean Corpuscular Hemoglobin 31.2 Mean Corpuscular Hemoglobin Concent 32.2 Red Cell Distribution Width 13.4 Platelet Count 238 Mean Platelet Volume 10.1 Neutrophils % 74.7 Lymphocytes % 14.8 L Monocytes % 8.0 Eosinophils % 1.5 Basophils % 0.8 Nucleated Red Blood Cells % 0.0 Neutrophils # 4.4 Lymphocytes # 0.9 Monocytes # 0.5 Eosinophils # 0.1 Basophils # 0.1 Nucleated Red Blood Cells # 0.0 Sodium Level 138 Potassium Level 3.6 Chloride Level 98 Carbon Dioxide Level 36 H Anion Gap 8 Blood Urea Nitrogen 8 Creatinine 0.52 Glucose Level 134 Calcium Level 8.7 Medications Current Medications Hydralazine HCl (Apresoline) 20 mg Q6H PRN IV for SBP >165 Last administered on 01/07/17 11:52; Admin Dose 20 MG; Start 01/07/17 at 11:30 Atorvastatin Calcium (Lipitor) 40 mg QHS PO Last administered on 01/07/17 21: 20; Admin Dose 40 MG; Start 01/07/17 at 21:00 Bupropion HCl (Wellbutrin) 75 mg BID PO Last administered on 01/08/17 09:19; Admin Dose 75 MG; Start 01/07/17 at 21:00 Docusate Sodium (Colace) 100 mg DAILY PO Last administered on 01/08/17 09:19; Admin Dose 100 MG; Start 01/08/17 at 09:00 Losartan Potassium (Cozaar) 25 mg DAILY PO Last administered on 01/08/17 09:20 ; Admin Dose 25 MG; Start 01/08/17 at 09:00 Gabapentin 300 mg 300 mg TID PO Last administered on 01/08/17 09:19; Admin Dose 300 MG; Start 01/07/17 at 21:00 Potassium Chloride/Dextrose/ Sod Cl (D5-1/2ns + KCl 20 Meq) 1,000 ml @ 50 mls/ hr Q20H IV Last administered on 01/07/17 16:52; Admin Dose 50 MLS/HR; Start at 15:30 Assessment/Plan Chief Complaint/Hosp Course Assessment 1. Acute on chronic hypercapnic respiratory failure 2. Unlikely neuromuscular disease causing alveolar hypoventilation 3. History of C-spine disease Plan. 1. Encourage incentive spirometry 2. Outpatient sleep study 3. Neurology recommendations 4. Avoid sedatives and opiates Problems: JUAN M CHAND MD, [facility] Jan 08, 2017 12:06
[2017-01-08 12:57] LABS: CK-MB 4.73 ng/ml (0.0-2.4); TROPONIN-I 0.031 ng/ml (0.00-0.12)
[2017-01-08 13:14] LABS: THYROID STIMULATING HORMONE 3.17 MIU/L (0.465-4.680)
--- NOTE | 2017-01-08 16:18 | CONS ---
Date/Time of Note Date/Time of Note DATE: 01/08/17 TIME: 16:17 Assessment/Plan Assessment/Plan Additional Assessment/Plan Dyspnea Reserved ejection fraction Weakness Elevated CPK -Serial troponins remain negative, echocardiogram with preserved ejection fraction. Patient's symptoms do not appear cardiac in origin. Is undergoing evaluation by our neurology colleague for possible neuromuscular disorder. No further inpatient cardiac workup needed at the current time. Consultation Date/Type/Reason Admit Date/Time Jan 07, 2017 at 05:41 Initial Consult Date 01/08/17 Type of Consultation: cv Referring Provider: KRISTOPHER REED 24 HR Interval Summary Free Text/Dictation Patient seen and examined, denies shortness of breath currently. Feeling better. Undergoing neurologic evaluation Exam/Review of Systems Vital Signs Vitals Vital Signs Date Time Temp Pulse Resp B/P Pulse Ox O2 Delivery O2 Flow Rate FiO2 01/08/17 16:00 96 01/08/17 15:35 98.3 18 116/59 99 01/08/17 08:00 Nasal Cannula 3.0 01/08/17 05:35 40 Intake and Output 01/07/17 01/07/17 01/08/17 15:00 23:00 07:00 Intake Total 250 ml Balance 250 ml Exam Appears tired, no apparent distress Constitutional: alert, oriented Head: normocephalic Respiratory: other (Coarse breath sounds bilaterally, no wheezing) Cardiovascular: other (S1-S2 heard), regular rate and rhythm Gastrointestinal: bowel sounds, non-tender, soft Extremities: edema Results Result Diagram: 01/08/17 0701 01/08/17 0701 Results 24 hrs Laboratory Tests Test 01/07/17 16:20 01/07/17 20:32 01/08/17 07:01 01/08/17 12:14 Creatine Kinase 565 H 580 H 495 H Creatine Kinase Index 0.9 0.8 1.0 Creatinine Kinase MB (Mass) 5.21 H 4.83 H 4.73 H Troponin I 0.040 0.056 0.031 White Blood Count 5.9 Red Blood Count 3.85 L Hemoglobin 12.0 Hematocrit 37.3 Mean Corpuscular Volume 96.9 Mean Corpuscular Hemoglobin 31.2 Mean Corpuscular Hemoglobin Concent 32.2 Red Cell Distribution Width 13.4 Platelet Count 238 Mean Platelet Volume 10.1 Neutrophils % 74.7 Lymphocytes % 14.8 L Monocytes % 8.0 Eosinophils % 1.5 Basophils % 0.8 Nucleated Red Blood Cells % 0.0 Neutrophils # 4.4 Lymphocytes # 0.9 Monocytes # 0.5 Eosinophils # 0.1 Basophils # 0.1 Nucleated Red Blood Cells # 0.0 Sodium Level 138 Potassium Level 3.6 Chloride Level 98 Carbon Dioxide Level 36 H Anion Gap 8 Blood Urea Nitrogen 8 Creatinine 0.52 Glucose Level 134 Calcium Level 8.7 Vitamin B12 Level 896 Thyroid Stimulating Hormone (TSH) 3.170 Medications Medications Current Medications Hydralazine HCl (Apresoline) 20 mg Q6H PRN IV for SBP >165 Last administered on 01/07/17 11:52; Admin Dose 20 MG; Start 01/07/17 at 11:30 Atorvastatin Calcium (Lipitor) 40 mg QHS PO Last administered on 01/07/17 21: 20; Admin Dose 40 MG; Start 01/07/17 at 21:00 Bupropion HCl (Wellbutrin) 75 mg BID PO Last administered on 01/08/17 09:19; Admin Dose 75 MG; Start 01/07/17 at 21:00 Docusate Sodium (Colace) 100 mg DAILY PO Last administered on 01/08/17 09:19; Admin Dose 100 MG; Start 01/08/17 at 09:00 Losartan Potassium (Cozaar) 25 mg DAILY PO Last administered on 01/08/17 09:20 ; Admin Dose 25 MG; Start 01/08/17 at 09:00 Gabapentin 300 mg 300 mg TID PO Last administered on 01/08/17 12:47; Admin Dose 300 MG; Start 01/07/17 at 21:00 Potassium Chloride/Dextrose/ Sod Cl (D5-1/2ns + KCl 20 Meq) 1,000 ml @ 50 mls/ hr Q20H IV Last administered on 01/08/17 11:30; Admin Dose 50 MLS/HR; Start at 15:30 Carlos Patel DO Jan 08, 2017 16:18
--- NOTE | 2017-01-08 16:44 | PN ---
Date/Time of Note Date/Time of Note DATE: 01/08/17 TIME: 16:36 Assessment/Plan VTE Prophylaxis VTE Prophylaxis Intervention: LMWH Lines/Catheters IV C[facility]ter Type [facility]from [facility]): Peripheral IV Assessment/Plan Chief Complaint/Hosp Course Patient was improvement in respiratory status, she is sitting in chair eating lunch, continues on supplemental oxygen. Problems: Assessment/Plan - Hypercapnic respiratory failure. Continue oxygen supplementation and breathing treatments. Dr. Davenport is following in pulmonology consultation. - Acute coronary syndrome ruled out. Dr. Patel is following is following and cardiology consultation. - Cervical degenerative disease and history of subdural hematoma with functional decline. Dr. Sullivan in neurology consultation patient is pending MRI of the brain and cervical spine. - Hypertension, continue Cozaar - Hyperlipidemia, continue statin - Fibromyalgia, continue Wellbutrin Further recommendations based on clinical course. Plan of care discussed with Dr. Venegas Exam/Review of Systems Vital Signs Vitals Vital Signs Date Time Temp Pulse Resp B/P Pulse Ox O2 Delivery O2 Flow Rate FiO2 01/08/17 16:00 96 01/08/17 15:35 98.3 18 116/59 99 01/08/17 08:00 Nasal Cannula 3.0 01/08/17 05:35 40 Intake and Output 01/07/17 01/07/17 01/08/17 15:00 23:00 07:00 Intake Total 250 ml Balance 250 ml Exam Constitutional: alert, oriented Neck: supple Respiratory: normal air movement Cardiovascular: regular rate and rhythm Gastrointestinal: non-tender, soft Musculoskeletal: muscle weakness Results Result Diagram: 01/08/17 0701 01/08/17 0701 Results 24 hrs Laboratory Tests Test 01/07/17 20:32 01/08/17 07:01 01/08/17 12:14 Creatine Kinase 580 H 495 H Creatine Kinase Index 0.8 1.0 Creatinine Kinase MB (Mass) 4.83 H 4.73 H Troponin I 0.056 0.031 White Blood Count 5.9 Red Blood Count 3.85 L Hemoglobin 12.0 Hematocrit 37.3 Mean Corpuscular Volume 96.9 Mean Corpuscular Hemoglobin 31.2 Mean Corpuscular Hemoglobin Concent 32.2 Red Cell Distribution Width 13.4 Platelet Count 238 Mean Platelet Volume 10.1 Neutrophils % 74.7 Lymphocytes % 14.8 L Monocytes % 8.0 Eosinophils % 1.5 Basophils % 0.8 Nucleated Red Blood Cells % 0.0 Neutrophils # 4.4 Lymphocytes # 0.9 Monocytes # 0.5 Eosinophils # 0.1 Basophils # 0.1 Nucleated Red Blood Cells # 0.0 Sodium Level 138 Potassium Level 3.6 Chloride Level 98 Carbon Dioxide Level 36 H Anion Gap 8 Blood Urea Nitrogen 8 Creatinine 0.52 Glucose Level 134 Calcium Level 8.7 Vitamin B12 Level 896 Thyroid Stimulating Hormone (TSH) 3.170 Medications Medications Current Medications Hydralazine HCl (Apresoline) 20 mg Q6H PRN IV for SBP >165 Last administered on 01/07/17 11:52; Admin Dose 20 MG; Start 01/07/17 at 11:30 Atorvastatin Calcium (Lipitor) 40 mg QHS PO Last administered on 01/07/17 21: 20; Admin Dose 40 MG; Start 01/07/17 at 21:00 Bupropion HCl (Wellbutrin) 75 mg BID PO Last administered on 01/08/17 09:19; Admin Dose 75 MG; Start 01/07/17 at 21:00 Docusate Sodium (Colace) 100 mg DAILY PO Last administered on 01/08/17 09:19; Admin Dose 100 MG; Start 01/08/17 at 09:00 Losartan Potassium (Cozaar) 25 mg DAILY PO Last administered on 01/08/17 09:20 ; Admin Dose 25 MG; Start 01/08/17 at 09:00 Gabapentin 300 mg 300 mg TID PO Last administered on 01/08/17 12:47; Admin Dose 300 MG; Start 01/07/17 at 21:00 Potassium Chloride/Dextrose/ Sod Cl (D5-1/2ns + KCl 20 Meq) 1,000 ml @ 50 mls/ hr Q20H IV Last administered on 01/08/17 11:30; Admin Dose 50 MLS/HR; Start at 15:30 KRISTOPHER REED Jan 08, 2017 16:44
[2017-01-08] MEDS: ATORVASTATIN 40 MG TAB PO SCH (21:32)
--- NOTE | 2017-01-08 23:12 | RADRPT ---
PROCEDURE: MR Cervical Spine noncontrast. CLINICAL INDICATION: Quadriparesis. Respiratory acidosis. TECHNIQUE: Multiplanar multisequence noncontrast MRI of the cervical spine was performed. COMPARISON: There are no similar studies submitted for comparison. FINDINGS: There is straightening of the normal cervical lordosis. The vertebral body heights are maintained. There is normal alignment. There is no destructive osseous lesion. There are Modic type 1 degenerative changes at C6-C7. Otherwise there is no abnormal bone marrow ed aggie. There is disk desiccation from C2-C3 to C6-C7. The spinal cord is normal in signal. C2-C3 : There is a 1 mm circumferential disc osteophyte complex without spinal canal or bilateral fo raminal stenosis. C3-C4 : There is a 1 mm circumferential disc osteophyte complex with mild to moderate spinal canal s tenosis. There is moderate left and moderate facet arthropathy and bilateral uncovertebral hypertrop hy causing moderate right and mild to moderate left foraminal stenosis. C4-C5 : There is moderate disc space narrowing. There is a 2 mm circumferential disc osteophyte comp zoë with dorsal ligamentous hypertrophy impinging the spinal cord with moderate to severe spinal can al stenosis. There is no spinal cord edema. There is moderate bilateral facet arthropathy and bilate ral uncovertebral hypertrophy causing moderate to severe bilateral foraminal stenosis. This likely a ffects the exiting bilateral C5 nerve roots. C5-C6 : There is moderate disc space narrowing. There is a 2 mm circumferential disc osteophyte comp zoë mildly indenting the spinal cord with dorsal ligamentous hypertrophy causing mild to moderate sp inal canal stenosis. There is moderate right and mild left facet arthropathy and bilateral uncoverte bral hypertrophy causing moderate right without left foraminal stenosis. C6-C7 : There is moderate disc space narrowing. There is a 2 mm circumferential disc osteophyte comp zoë with dorsal ligamentous hypertrophy mildly impinging the spinal cord with moderate spinal canal stenosis. There is moderate bilateral facet arthropathy and bilateral uncovertebral hypertrophy caus ing moderate bilateral foraminal stenosis. C7-T1 : There is a 1 mm broad-based disc osteophyte complex without spinal canal stenosis. There is mild bilateral facet arthropathy and bilateral uncovertebral hypertrophy causing mild bilateral fora javi stenosis. The paravertebral musculature are within normal limits. IMPRESSION: 1. Multilevel degenerative changes most pronounced at C4-C5 where there is a circumferential disc o steophyte complex with impinging the spinal cord with moderate to severe spinal canal stenosis. Ther e is moderate to severe bilateral foraminal stenosis. This likely affects the exiting bilateral C5 n erve roots. 2. Straightening of the normal cervical lordosis. Further findings as detailed above. RPTAT: HVF .Leo Powers MD, Date Time Electronically viewed and signed by .Leo Powers MD, on 01/08/2017 23:12 .F/
--- NOTE | 2017-01-08 23:13 | RADRPT ---
PROCEDURE: MR Brain noncontrast. CLINICAL INDICATION: Quadriparesis. Respiratory acidosis. TECHNIQUE: Multiplanar multisequence noncontrast MRI of the brain was performed. COMPARISON: Noncontrast CT of the head from January 07, 2017. FINDINGS: There is minimal generalized cerebral volume loss. There are mild scattered bilateral subcortical and periventricular T2 hyperintensities suggesting ch ronic microvascular ischemic changes. There is no acute infarction. There is no intracranial hemorrhage or extra-axial fluid collection. There is no mass effect. There is no midline shift. The brainstem is within normal limits. The posterior fossa is unremarkable. The normal intracranial, intravascular flow voids are preserved. The visualized paranasal sinuses are well aerated. The orbits are grossly unremarkable. There is no destructive osseous lesion. IMPRESSION: 1. No acute infarction or intracranial hemorrhage. 2. Mild chronic microvascular ischemic changes. 3. Minimal generalized cerebral volume loss. Further findings as detailed above. RPTAT: HVF .Leo Powers MD, MD Date Time Electronically viewed and signed by .Leo Powers MD, on 01/08/2017 23:12 .F/
--- NOTE | 2017-01-08 23:15 | RADRPT ---
PROCEDURE: MR Thoracic Spine noncontrast. CLINICAL INDICATION: Quadriparesis. Respiratory acidosis. TECHNIQUE: Multiplanar multisequence noncontrast MRI of the thoracic spine performed. COMPARISON: There are no similar studies submitted for comparison. FINDINGS: There is preservation of the normal thoracic kyphosis. The vertebral body heights are maintained. There is normal alignment. There is no destructive osseous lesion.There is no abnormal bone marrow edema. There is multilevel disc desiccation with multilevel mild disc space narrowing. The spinal cord is normal is signal. There are multilevel mild disc bulges without spinal canal or bilateral foraminal stenosis. The paraspinal musculature are within normal limits.There is a 2 cm round T2 hyperintensity within t he right kidney which is incompletely evaluated but statistically represent a cyst. IMPRESSION: 1. No acute compression fracture or abnormal bone marrow edema. 2. Multilevel mild disc bulges without spinal canal or bilateral foraminal stenosis. Further findings as detailed above. RPTAT: HVF .Leo Powers MD, MD Date Time Electronically viewed and signed by .Leo Powers MD, on 01/08/2017 23:15 .F/
[2017-01-09] VITALS (15 sets, daily range): BP systolic 120–156; BP diastolic 58–69; PULSE 87–98; RESP 16–20
--- NOTE | 2017-01-09 00:13 | RADRPT ---
Vent Rate: 108 bpm RR Interval: 0 msec ME Interval: 150 msec QRS Duration: 86 msec QT Interval: 324 msec QTC Interval: 434 msec P-R-T [place]: 42 - 43 - -8 degrees Sinus tachycardia Septal infarct , age undetermined Abnormal ECG Electronically Signed By: Alex Elmore [id number]
[2017-01-09 07:24] LABS: BASOPHIL # 0.1 10^3/ul (0.0-0.1); EOSINOPHILS # 0.2 10^3/ul (0.0-0.5); HEMATOCRIT 38.2 % (37.0-47.0); HEMOGLOBIN 11.9 g/dl (12.0-16.0); LYMPHOCYTES # 1.1 10^3/ul (0.8-2.9); LYMPHOCYTES % 22.5 % (15.0-51.0); MEAN CORPUSCULAR HEMOGLOBIN 29.8 pg (29.0-33.0); MEAN CORPUSCULAR HGB CONC 31.2 g/dl (32.0-37.0); MEAN CORPUSCULAR VOLUME 95.7 fl (82.0-101.0); MONOCYTE # 0.4 10^3/ul (0.3-0.9); MONOCYTES % 8.2 % (0.0-11.0); NEUTROPHIL # 3.2 10^3/ul (1.6-7.5); NEUTROPHILS % 65.1 % (39.0-77.0); PLATELET COUNT 248 10^3/UL (140-415); RED BLOOD COUNT 3.99 10^6/ul (4.20-5.40); RED CELL DISTRIBUTION WIDTH 13.5 % (11.5-14.5)
[2017-01-09 07:53] LABS: CHOL/HDL RATIO 1.8 RATIO
[2017-01-09 07:54] LABS: CREATININE 0.5 mg/dl (0.44-1.00); POTASSIUM 3.7 mmol/L (3.5-5.1)
[2017-01-09] MEDS: DOCUSATE SODIUM 100 MG CAP PO SCH (09:17)
[2017-01-09] MEDS: GABAPENTIN 300 MG CAP PO SCH ×3 (09:17→20:22)
[2017-01-09] MEDS: LOSARTAN 25 MG TAB PO SCH (09:18)
[2017-01-09] MEDS: BUPROPION 75 MG TAB PO SCH ×2 (09:18→20:22)
--- NOTE | 2017-01-09 10:32 | CONS ---
Date/Time of Note Date/Time of Note DATE: 01/09/17 TIME: 10:30 Assessment/Plan Assessment/Plan Additional Assessment/Plan Dyspnea C-spine moderate to severe canal stenosis Reserved ejection fraction Weakness Elevated CPK -Patient status post MRI of the spine with evidence of spinal canal stenosis. Undergoing neurologic workup. No new cardiac orders at the current time. Consultation Date/Type/Reason Admit Date/Time Jan 07, 2017 at 05:41 Initial Consult Date 01/08/17 Type of Consultation: cv Referring Provider: KRISTOPHER REED 24 HR Interval Summary Free Text/Dictation Shortness of breath continues to improve, denies current shortness of breath or chest pain Exam/Review of Systems Vital Signs Vitals Vital Signs Date Time Temp Pulse Resp B/P Pulse Ox O2 Delivery O2 Flow Rate FiO2 01/09/17 08:17 89 01/09/17 08:04 98.4 17 145/69 100 01/09/17 07:49 4.0 01/09/17 04:45 40 01/08/17 21:30 Nasal Cannula Intake and Output 01/08/17 01/08/17 01/09/17 15:00 23:00 07:00 Intake Total 400 ml 250 ml Balance 400 ml 250 ml Exam Sitting in chair Constitutional: alert, obese, oriented Head: normocephalic Respiratory: other (Coarse breath sounds bilaterally, no wheezing) Cardiovascular: other (S1-S2 heard), regular rate and rhythm Gastrointestinal: bowel sounds, non-tender, soft Extremities: edema Results Result Diagram: 01/09/17 0657 01/09/17 0659 Results 24 hrs Laboratory Tests Test 01/08/17 12:14 01/09/17 06:57 01/09/17 06:59 Creatine Kinase 495 H Creatine Kinase Index 1.0 Creatinine Kinase MB (Mass) 4.73 H Troponin I 0.031 Vitamin B12 Level 896 Thyroid Stimulating Hormone (TSH) 3.170 White Blood Count 5.0 Red Blood Count 3.99 L Hemoglobin 11.9 L Hematocrit 38.2 Mean Corpuscular Volume 95.7 Mean Corpuscular Hemoglobin 29.8 Mean Corpuscular Hemoglobin Concent 31.2 L Red Cell Distribution Width 13.5 Platelet Count 248 Mean Platelet Volume 10.0 Neutrophils % 65.1 Lymphocytes % 22.5 Monocytes % 8.2 Eosinophils % 3.0 Basophils % 1.0 Nucleated Red Blood Cells % 0.0 Neutrophils # 3.2 Lymphocytes # 1.1 Monocytes # 0.4 Eosinophils # 0.2 Basophils # 0.1 Nucleated Red Blood Cells # 0.0 Sodium Level 139 Potassium Level 3.7 Chloride Level 100 Carbon Dioxide Level 34 H Anion Gap 9 Blood Urea Nitrogen 7 Creatinine 0.50 Glucose Level 136 Calcium Level 9.0 Triglycerides Level 84 Cholesterol Level 111 LDL Cholesterol, Calculated 35 HDL Cholesterol 59 Cholesterol/HDL Ratio 1.8 Medications Medications Current Medications Hydralazine HCl (Apresoline) 20 mg Q6H PRN IV for SBP >165 Last administered on 01/07/17 11:52; Admin Dose 20 MG; Start 01/07/17 at 11:30 Atorvastatin Calcium (Lipitor) 40 mg QHS PO Last administered on 01/08/17 21: 32; Admin Dose 40 MG; Start 01/07/17 at 21:00 Bupropion HCl (Wellbutrin) 75 mg BID PO Last administered on 01/09/17 09:18; Admin Dose 75 MG; Start 01/07/17 at 21:00 Docusate Sodium (Colace) 100 mg DAILY PO Last administered on 01/09/17 09:17; Admin Dose 100 MG; Start 01/08/17 at 09:00 Losartan Potassium (Cozaar) 25 mg DAILY PO Last administered on 01/09/17 09:18 ; Admin Dose 25 MG; Start 01/08/17 at 09:00 Gabapentin 300 mg 300 mg TID PO Last administered on 01/09/17 09:17; Admin Dose 300 MG; Start 01/07/17 at 21:00 Potassium Chloride/Dextrose/ Sod Cl (D5-1/2ns + KCl 20 Meq) 1,000 ml @ 50 mls/ hr Q20H IV Last administered on 01/08/17 11:30; Admin Dose 50 MLS/HR; Start at 15:30 Carlos Patel DO Jan 09, 2017 10:32
[2017-01-09] MEDS: D5W-0.45 NACL + KCL 20 MEQ 1,000 ML IV SCH (11:00)
--- NOTE | 2017-01-09 12:13 | CONS ---
Date/Time of Note Date/Time of Note DATE: 01/09/17 TIME: 12:10 Consult Date/Type/Reason Admit Date/Time Jan 07, 2017 at 05:41 Initial Consult Date 01/08/17 Type of Consultation: Neurology Reason for Consultation eval for underlying neurologic disease Ordering Provider: KRISTOPHER REED Subjective imaging completed remains stable tolerating PO well per nurse, await official speech and swallow Objective Vital Signs Date Time Temp Pulse Resp B/P Pulse Ox O2 Delivery O2 Flow Rate FiO2 01/09/17 11:26 98.2 96 18 120/59 100 01/09/17 07:49 4.0 01/09/17 04:45 40 01/08/17 21:30 Nasal Cannula Intake and Output 01/08/17 01/08/17 01/09/17 15:00 23:00 07:00 Intake Total 400 ml 250 ml Balance 400 ml 250 ml Exam awake and alert flat affected oriented to self hospital date and family follows commands no aphasia CN: JOE, VFF, EOMI, no sig facial asymmetry hypophonic voice tongue fasciculations are present Motor: lifts both UE anti-gravity with distal weakness present in left hand from prior fracture 3/5 strength weakness more notable in the right compared to left LE - LLE 4-/5 strength, RLE 3/5 strength Coordination difficult to perform due to weakness in UE Reflexes 2+ UE, absent Knee jerk and AJ patient unable to ambulate requires more than 2 person assist Results/Medications Result Diagram: 01/09/17 0657 01/09/17 0659 Results 24 hrs Laboratory Tests Test 01/08/17 12:14 01/09/17 06:57 01/09/17 06:59 Creatine Kinase 495 H Creatine Kinase Index 1.0 Creatinine Kinase MB (Mass) 4.73 H Troponin I 0.031 Vitamin B12 Level 896 Thyroid Stimulating Hormone (TSH) 3.170 White Blood Count 5.0 Red Blood Count 3.99 L Hemoglobin 11.9 L Hematocrit 38.2 Mean Corpuscular Volume 95.7 Mean Corpuscular Hemoglobin 29.8 Mean Corpuscular Hemoglobin Concent 31.2 L Red Cell Distribution Width 13.5 Platelet Count 248 Mean Platelet Volume 10.0 Neutrophils % 65.1 Lymphocytes % 22.5 Monocytes % 8.2 Eosinophils % 3.0 Basophils % 1.0 Nucleated Red Blood Cells % 0.0 Neutrophils # 3.2 Lymphocytes # 1.1 Monocytes # 0.4 Eosinophils # 0.2 Basophils # 0.1 Nucleated Red Blood Cells # 0.0 Sodium Level 139 Potassium Level 3.7 Chloride Level 100 Carbon Dioxide Level 34 H Anion Gap 9 Blood Urea Nitrogen 7 Creatinine 0.50 Glucose Level 136 Calcium Level 9.0 Triglycerides Level 84 Cholesterol Level 111 LDL Cholesterol, Calculated 35 HDL Cholesterol 59 Cholesterol/HDL Ratio 1.8 Medications Current Medications Hydralazine HCl (Apresoline) 20 mg Q6H PRN IV for SBP >165 Last administered on 01/07/17 11:52; Admin Dose 20 MG; Start 01/07/17 at 11:30 Atorvastatin Calcium (Lipitor) 40 mg QHS PO Last administered on 01/08/17 21: 32; Admin Dose 40 MG; Start 01/07/17 at 21:00 Bupropion HCl (Wellbutrin) 75 mg BID PO Last administered on 01/09/17 09:18; Admin Dose 75 MG; Start 01/07/17 at 21:00 Docusate Sodium (Colace) 100 mg DAILY PO Last administered on 01/09/17 09:17; Admin Dose 100 MG; Start 01/08/17 at 09:00 Losartan Potassium (Cozaar) 25 mg DAILY PO Last administered on 01/09/17 09:18 ; Admin Dose 25 MG; Start 01/08/17 at 09:00 Gabapentin 300 mg 300 mg TID PO Last administered on 01/09/17 09:17; Admin Dose 300 MG; Start 01/07/17 at 21:00 Potassium Chloride/Dextrose/ Sod Cl (D5-1/2ns + KCl 20 Meq) 1,000 ml @ 50 mls/ hr Q20H IV Last administered on 01/08/17 11:30; Admin Dose 50 MLS/HR; Start at 15:30 Assessment/Plan Chief Complaint/Hosp Course 66 yo female with history of cervical degenerative disease, frequent falls prior SDH admitted with worsening SOB. CTH showed no acute process, sub-acute/chronic ischemic changes notable in Right MCA territory diffuse small vessel disease. MRI Brain w/o contrast chronic microvascular changes, no acute ischemic disease MRI Cervical Spine w/o contrast : Multilevel degenerative changes most pronounced at C4-C5 where there is a circumferential disc osteophyte complex with impinging the spinal cord with moderate to severe spinal canal stenosis. There is moderate to severe bilateral foraminal stenosis. This likely affects the exiting bilateral C5 nerve roots. Recommendations: Examination not concerning for myelopathy B12 wnl would also recommend further outpatient EMG/NCV studies to evaluate for neuromuscular disease Speech evaluation Continue PT recommended outpatient PT dc planning with outpatient neurology follow up to schedule EMG/NCV Problems: FABRICIO PRITCHETT MD Jan 09, 2017 12:13
--- NOTE | 2017-01-09 15:11 | CONS ---
Date/Time of Note Date/Time of Note DATE: 01/09/17 TIME: 15:10 Consult Date/Type/Reason Admit Date/Time Jan 07, 2017 at 05:41 Initial Consult Date 01/08/17 Type of Consultation: Pulm Ordering Provider: KRISTOPHER REED Subjective Comfortable. Objective Vital Signs Date Time Temp Pulse Resp B/P Pulse Ox O2 Delivery O2 Flow Rate FiO2 01/09/17 12:29 97 01/09/17 11:26 98.2 18 120/59 100 01/09/17 08:00 Nasal Cannula 3.0 01/09/17 04:45 40 Intake and Output 01/08/17 01/08/17 01/09/17 15:00 23:00 07:00 Intake Total 400 ml 250 ml Balance 400 ml 250 ml Exam GENERAL: Elderly lady comfortable at rest no acute distress VITAL SIGNS: per chart NECK: Supple. No JVD or lymphadenopathy. CARDIAC EXAM: S1, S2. No added sounds or murmurs. CHEST: clear bilaterally, No added sounds, rales or wheezes ABDOMEN: Soft, nontender. No guarding or rebound. EXTREMITIES: No cyanosis, clubbing or edema. NEUROLOGIC: Generalized weakness. No focal deficits. Results/Medications Result Diagram: 01/09/17 0657 01/09/17 0659 Results 24 hrs Laboratory Tests Test 01/09/17 06:57 01/09/17 06:59 White Blood Count 5.0 Red Blood Count 3.99 L Hemoglobin 11.9 L Hematocrit 38.2 Mean Corpuscular Volume 95.7 Mean Corpuscular Hemoglobin 29.8 Mean Corpuscular Hemoglobin Concent 31.2 L Red Cell Distribution Width 13.5 Platelet Count 248 Mean Platelet Volume 10.0 Neutrophils % 65.1 Lymphocytes % 22.5 Monocytes % 8.2 Eosinophils % 3.0 Basophils % 1.0 Nucleated Red Blood Cells % 0.0 Neutrophils # 3.2 Lymphocytes # 1.1 Monocytes # 0.4 Eosinophils # 0.2 Basophils # 0.1 Nucleated Red Blood Cells # 0.0 Sodium Level 139 Potassium Level 3.7 Chloride Level 100 Carbon Dioxide Level 34 H Anion Gap 9 Blood Urea Nitrogen 7 Creatinine 0.50 Glucose Level 136 Calcium Level 9.0 Triglycerides Level 84 Cholesterol Level 111 LDL Cholesterol, Calculated 35 HDL Cholesterol 59 Cholesterol/HDL Ratio 1.8 Medications Current Medications Hydralazine HCl (Apresoline) 20 mg Q6H PRN IV for SBP >165 Last administered on 01/07/17 11:52; Admin Dose 20 MG; Start 01/07/17 at 11:30 Atorvastatin Calcium (Lipitor) 40 mg QHS PO Last administered on 01/08/17 21: 32; Admin Dose 40 MG; Start 01/07/17 at 21:00 Bupropion HCl (Wellbutrin) 75 mg BID PO Last administered on 01/09/17 09:18; Admin Dose 75 MG; Start 01/07/17 at 21:00 Docusate Sodium (Colace) 100 mg DAILY PO Last administered on 01/09/17 09:17; Admin Dose 100 MG; Start 01/08/17 at 09:00 Losartan Potassium (Cozaar) 25 mg DAILY PO Last administered on 01/09/17 09:18 ; Admin Dose 25 MG; Start 01/08/17 at 09:00 Gabapentin 300 mg 300 mg TID PO Last administered on 01/09/17 13:29; Admin Dose 300 MG; Start 01/07/17 at 21:00 Potassium Chloride/Dextrose/ Sod Cl (D5-1/2ns + KCl 20 Meq) 1,000 ml @ 50 mls/ hr Q20H IV Last administered on 01/09/17 11:00; Admin Dose 50 MLS/HR; Start at 15:30 Assessment/Plan Chief Complaint/Hosp Course Assessment 1. Acute on chronic hypercapnic respiratory failure 2. Unlikely neuromuscular disease causing alveolar hypoventilation 3. History of C-spine disease Plan. 1. Encourage incentive spirometry 2. Outpatient sleep study 3. Neurology recommendations 4. Avoid sedatives and opiates Problems: JUAN M CHAND MD, [facility] Jan 09, 2017 15:11
--- NOTE | 2017-01-09 16:55 | PN ---
Date/Time of Note Date/Time of Note DATE: 01/09/17 TIME: 16:46 Assessment/Plan VTE Prophylaxis VTE Prophylaxis Intervention: SCD's Lines/Catheters IV Catheter Type (from Nrs): Peripheral IV Assessment/Plan Chief Complaint/Hosp Course Patient with improved respiratory status,awake, alert, complains of constipation, will start pt on bowel regimen, continue Protonix, start PT. Assessment/Plan - Hypercapnic respiratory failure. Continue oxygen supplementation and breathing treatments. Dr. Davenport is following in pulmonology consultation. - Acute coronary syndrome ruled out. Dr. Patel is following is following and cardiology consultation. - Cervical degenerative disease with spinal canal stenosis. Dr. Sullivan is following in neurology consultation. - Hx of subdural hematoma. - Hypertension, continue Cozaar - Hyperlipidemia, continue statin - Fibromyalgia, continue Wellbutrin Further recommendations based on clinical course. Plan of care discussed with Dr. Venegas Problems: Exam/Review of Systems Vital Signs Vitals Vital Signs Date Time Temp Pulse Resp B/P Pulse Ox O2 Delivery O2 Flow Rate FiO2 01/09/17 15:29 98.3 87 16 122/58 92 01/09/17 08:00 Nasal Cannula 3.0 01/09/17 04:45 40 Intake and Output 01/08/17 01/08/17 01/09/17 15:00 23:00 07:00 Intake Total 400 ml 250 ml Balance 400 ml 250 ml Exam Constitutional: alert, oriented Neck: supple Respiratory: normal air movement Cardiovascular: regular rate and rhythm Gastrointestinal: non-tender, soft Musculoskeletal: muscle weakness Results Result Diagram: 01/09/17 0657 01/09/17 0659 Results 24 hrs Laboratory Tests Test 01/09/17 06:57 01/09/17 06:59 White Blood Count 5.0 Red Blood Count 3.99 L Hemoglobin 11.9 L Hematocrit 38.2 Mean Corpuscular Volume 95.7 Mean Corpuscular Hemoglobin 29.8 Mean Corpuscular Hemoglobin Concent 31.2 L Red Cell Distribution Width 13.5 Platelet Count 248 Mean Platelet Volume 10.0 Neutrophils % 65.1 Lymphocytes % 22.5 Monocytes % 8.2 Eosinophils % 3.0 Basophils % 1.0 Nucleated Red Blood Cells % 0.0 Neutrophils # 3.2 Lymphocytes # 1.1 Monocytes # 0.4 Eosinophils # 0.2 Basophils # 0.1 Nucleated Red Blood Cells # 0.0 Sodium Level 139 Potassium Level 3.7 Chloride Level 100 Carbon Dioxide Level 34 H Anion Gap 9 Blood Urea Nitrogen 7 Creatinine 0.50 Glucose Level 136 Calcium Level 9.0 Triglycerides Level 84 Cholesterol Level 111 LDL Cholesterol, Calculated 35 HDL Cholesterol 59 Cholesterol/HDL Ratio 1.8 Medications Medications Current Medications Hydralazine HCl (Apresoline) 20 mg Q6H PRN IV for SBP >165 Last administered on 01/07/17 11:52; Admin Dose 20 MG; Start 01/07/17 at 11:30 Atorvastatin Calcium (Lipitor) 40 mg QHS PO Last administered on 01/08/17 21: 32; Admin Dose 40 MG; Start 01/07/17 at 21:00 Bupropion HCl (Wellbutrin) 75 mg BID PO Last administered on 01/09/17 09:18; Admin Dose 75 MG; Start 01/07/17 at 21:00 Docusate Sodium (Colace) 100 mg DAILY PO Last administered on 01/09/17 09:17; Admin Dose 100 MG; Start 01/08/17 at 09:00 Losartan Potassium (Cozaar) 25 mg DAILY PO Last administered on 01/09/17 09:18 ; Admin Dose 25 MG; Start 01/08/17 at 09:00 Gabapentin 300 mg 300 mg TID PO Last administered on 01/09/17 13:29; Admin Dose 300 MG; Start 01/07/17 at 21:00 Potassium Chloride/Dextrose/ Sod Cl (D5-1/2ns + KCl 20 Meq) 1,000 ml @ 50 mls/ hr Q20H IV Last administered on 01/09/17 11:00; Admin Dose 50 MLS/HR; Start at 15:30 Polyethylene Glycol (Miralax) 17 gm DAILY PRN GTB CONSTIPATION; Start 01/09/17 at 17:00; Status KRISTOPHER ESCOBAR Jan 09, 2017 16:55
[2017-01-09] MEDS: POLYETHYLENE GLYCOL 17 GM PACKET GTB PRN (17:52)
[2017-01-09] MEDS: ATORVASTATIN 40 MG TAB PO SCH (20:22)
[2017-01-10] VITALS (14 sets, daily range): BP systolic 125–164; BP diastolic 60–74; PULSE 80–103; RESP 16–22
[2017-01-10] MEDS: PANTOPRAZOLE (EC) 40 MG TAB PO SCH (06:00)
[2017-01-10 07:18] LABS: BASOPHIL # 0.1 10^3/ul (0.0-0.1); BASOPHILS % 0.8 % (0.0-2.0); EOSINOPHILS # 0.2 10^3/ul (0.0-0.5); EOSINOPHILS % 3.4 % (0.0-7.0); HEMATOCRIT 39.6 % (37.0-47.0); HEMOGLOBIN 12.3 g/dl (12.0-16.0); LYMPHOCYTES % 16.9 % (15.0-51.0); MEAN CORPUSCULAR HEMOGLOBIN 30.1 pg (29.0-33.0); MEAN CORPUSCULAR HGB CONC 31.1 g/dl (32.0-37.0); MEAN CORPUSCULAR VOLUME 97.1 fl (82.0-101.0); MEAN PLATELET VOLUME 9.8 fl (7.4-10.4); MONOCYTE # 0.6 10^3/ul (0.3-0.9); MONOCYTES % 9.2 % (0.0-11.0); NEUTROPHIL # 4.3 10^3/ul (1.6-7.5); NEUTROPHILS % 69.5 % (39.0-77.0); PLATELET COUNT 255 10^3/UL (140-415); RED BLOOD COUNT 4.08 10^6/ul (4.20-5.40); RED CELL DISTRIBUTION WIDTH 13.6 % (11.5-14.5); WHITE BLOOD COUNT 6.1 10^3/ul (4.8-10.8)
[2017-01-10 07:42] LABS: CALCIUM 8.8 mg/dl (8.4-10.2); CREATININE 0.52 mg/dl (0.44-1.00); POTASSIUM 4.1 mmol/L (3.5-5.1)
[2017-01-10] MEDS: GABAPENTIN 300 MG CAP PO SCH ×3 (09:33→21:01)
[2017-01-10] MEDS: DOCUSATE SODIUM 100 MG CAP PO SCH (09:33)
[2017-01-10] MEDS: BUPROPION 75 MG TAB PO SCH ×2 (09:33→21:01)
[2017-01-10] MEDS: LOSARTAN 25 MG TAB PO SCH (09:33)
[2017-01-10] MEDS: POLYETHYLENE GLYCOL 17 GM PACKET GTB PRN (09:36)
--- NOTE | 2017-01-10 09:37 | PN ---
Date/Time of Note Date/Time of Note DATE: 01/10/17 TIME: 09:36 Assessment/Plan VTE Prophylaxis VTE Prophylaxis Intervention: SCD's Lines/Catheters IV Catheter Type (from Nrsg): Saline Lock Assessment/Plan Assessment/Plan Dyspnea C-spine moderate to severe canal stenosis Reserved ejection fraction Weakness Elevated CPK -Patient status post MRI of the spine with evidence of spinal canal stenosis. Undergoing neurologic workup. No new cardiac orders at the current time. -neuro involved -sw family Subjective 24 Hr Interval Summary Free Text/Dictation the patient with no cahgne overnight Exam/Review of Systems Vital Signs Vitals Vital Signs Date Time Temp Pulse Resp B/P Pulse Ox O2 Delivery O2 Flow Rate FiO2 01/10/17 08:14 101 01/10/17 07:43 98.0 16 164/74 100 01/10/17 05:48 4.0 01/10/17 00:03 40 01/09/17 20:30 Nasal Cannula Intake and Output 01/09/17 01/09/17 01/10/17 15:00 23:00 07:00 Intake Total 1020 ml 180 ml Balance 1020 ml 180 ml Results Result Diagram: 01/10/17 0700 01/10/17 0700 Results 24 hrs Laboratory Tests Test 01/10/17 07:00 White Blood Count 6.1 # Red Blood Count 4.08 L Hemoglobin 12.3 Hematocrit 39.6 Mean Corpuscular Volume 97.1 Mean Corpuscular Hemoglobin 30.1 Mean Corpuscular Hemoglobin Concent 31.1 L Red Cell Distribution Width 13.6 Platelet Count 255 Mean Platelet Volume 9.8 Neutrophils % 69.5 Lymphocytes % 16.9 Monocytes % 9.2 Eosinophils % 3.4 Basophils % 0.8 Nucleated Red Blood Cells % 0.0 Neutrophils # 4.3 Lymphocytes # 1.0 Monocytes # 0.6 Eosinophils # 0.2 Basophils # 0.1 Nucleated Red Blood Cells # 0.0 Sodium Level 143 Potassium Level 4.1 Chloride Level 101 Carbon Dioxide Level 36 H Anion Gap 10 Blood Urea Nitrogen 8 Creatinine 0.52 Glucose Level 130 Calcium Level 8.8 Medications Medications Current Medications Hydralazine HCl (Apresoline) 20 mg Q6H PRN IV for SBP >165 Last administered on 01/07/17t 11:52; Admin Dose 20 MG; Start 01/07/17 at 11:30 Atorvastatin Calcium (Lipitor) 40 mg QHS PO Last administered on 01/09/17 20: 22; Admin Dose 40 MG; Start 01/07/17 at 21:00 Bupropion HCl (Wellbutrin) 75 mg BID PO Last administered on 01/09/17 20:22; Admin Dose 75 MG; Start 01/07/17 at 21:00 Docusate Sodium (Colace) 100 mg DAILY PO Last administered on 01/09/17 09:17; Admin Dose 100 MG; Start 01/08/17 at 09:00 Losartan Potassium (Cozaar) 25 mg DAILY PO Last administered on 01/09/17 09:18 ; Admin Dose 25 MG; Start 01/08/17 at 09:00 Gabapentin (Neurontin) 300 mg TID PO Last administered on 01/09/17 20:22; Admin Dose 300 MG; Start 01/07/17 at 21:00 Polyethylene Glycol (Miralax) 17 gm DAILY PRN GTB CONSTIPATION Last administered on 01/09/17 17:52; Admin Dose 17 GM; Start 01/09/17 at 17:00 Pantoprazole (Protonix Tab) 40 mg DAILY@06 PO ; Start 01/10/17 at 06:00 ABDI MARTINEZ MD Jan 10, 2017 09:37
[2017-01-10] MEDS ORDERED: NA PHOSPHATE/BIPHOS 133 ML ENEMA PR ONE (11:30)
--- NOTE | 2017-01-10 13:32 | PN ---
DATE: 01/10/2017 SUBJECTIVE DATA: The patient has been seen and remains stable this morning. No new events. OBJECTIVE DATA: VITAL SIGNS: Temperature 98, pulse 92, blood pressure 125/60, O2 sat 100 percent on 4 liters nasal cannula. NECK: Supple. No JVD. CARDIAC: S1, S2. No added sounds. No murmurs. CHEST: Diminished air entry bilaterally but no rales or wheezes. ABDOMEN: Soft, nontender. No guarding or rebound. EXTREMITIES: No clubbing, cyanosis or edema. NEUROLOGIC: Findings as above. ASSESSMENT: 1. Status post acute on chronic hypercapnic respiratory failure. 2. Cervical disease. 3. Resolving hypoxemia. PLAN: 1. Continue neurological recommendations. 2. Discharge planning okay from pulmonary standpoint. 3. Outpatient pulmonary function test. Dictated By: Heriberto Davenport MD /lan/[email or web address] /Document#: [id number]
--- NOTE | 2017-01-10 15:14 | RADRPT ---
PROCEDURE: XR Abdomen 1 View. CLINICAL INDICATION: Abdominal pain and constipation. TECHNIQUE: AP abdomen x-ray. COMPARISON: None. FINDINGS: A large amount of formed stool is identified in the distal transverse colon and splenic flexure. Sca ttered air is seen in the remainder of the colon. No dilated loops of small bowel are observed. No organomegaly is identified. No abnormal calculi are observed. Degenerative changes are identified i n the spine with mild scoliosis. IMPRESSION: Large amount of formed stool in the transverse colon and splenic flexure, possibly indicating consti pation. Otherwise, nonspecific bowel gas pattern. If further characterization of the abdomen is needed CT should be considered. RPTAT: AA .Thai Diaz MD, Date Time Electronically viewed and signed by .Thai Diaz MD, on 01/10/2017 15:14 .P/
[2017-01-10] MEDS: BISACODYL (EC) 5 MG TAB PO PRN (16:30)
--- NOTE | 2017-01-10 16:43 | PN ---
Date/Time of Note Date/Time of Note DATE: 01/10/17 TIME: 16:40 Assessment/Plan VTE Prophylaxis VTE Prophylaxis Intervention: other Lines/Catheters IV [facility]ter Type (from [facility] Saline Lock Urinary Cath still in place: No Assessment/Plan Assessment/Plan - Hypercapnic respiratory failure. Continue oxygen supplementation and breathing treatments. Dr. Davenport is following in pulmonology consultation. - Acute coronary syndrome ruled out. Dr. Patel is following is following and cardiology consultation. - Cervical degenerative disease with spinal canal stenosis. Dr. Sullivan is following in neurology consultation. - Hx of subdural hematoma. - Hypertension, continue Cozaar - Hyperlipidemia, continue statin - Fibromyalgia, continue Wellbutrin Further recommendations based on clinical course. Plan of care discussed with Dr. Venegas Subjective 24 Hr Interval Summary Free Text/Dictation Complaint of constipation, KUB was done, that showed no bowel obstruction but there was fecal matter noticed. Fleets enema was ordered by Dr. Dr. Flor. An email was given to patient by staff awaiting the results discussed with the staff Afebrile denies any nausea and vomiting no new events reported last night Constitutional: requiring O2 Cardiovascular: no complaints Gastrointestinal: constipation Musculoskeletal: no complaints Exam/Review of Systems Vital Signs Vitals Vital Signs Date Time Temp Pulse Resp B/P Pulse Ox O2 Delivery O2 Flow Rate FiO2 01/10/17 16:24 102 01/10/17 14:55 98.2 16 157/70 97 01/10/17 08:20 Nasal Cannula 4.0 01/10/17 00:03 40 Intake and Output 01/09/17 01/09/17 01/10/17 15:00 23:00 07:00 Intake Total 1020 ml 180 ml Balance 1020 ml 180 ml Exam Constitutional: alert, oriented Respiratory: diminished breath sounds Gastrointestinal: other, soft Musculoskeletal: nl extremities to inspection Extremities: normal pulses Neurological: nl speech Results Result Diagram: 01/10/17 0700 01/10/17 0700 Results 24 hrs Laboratory Tests Test 01/10/17 07:00 White Blood Count 6.1 # Red Blood Count 4.08 L Hemoglobin 12.3 Hematocrit 39.6 Mean Corpuscular Volume 97.1 Mean Corpuscular Hemoglobin 30.1 Mean Corpuscular Hemoglobin Concent 31.1 L Red Cell Distribution Width 13.6 Platelet Count 255 Mean Platelet Volume 9.8 Neutrophils % 69.5 Lymphocytes % 16.9 Monocytes % 9.2 Eosinophils % 3.4 Basophils % 0.8 Nucleated Red Blood Cells % 0.0 Neutrophils # 4.3 Lymphocytes # 1.0 Monocytes # 0.6 Eosinophils # 0.2 Basophils # 0.1 Nucleated Red Blood Cells # 0.0 Sodium Level 143 Potassium Level 4.1 Chloride Level 101 Carbon Dioxide Level 36 H Anion Gap 10 Blood Urea Nitrogen 8 Creatinine 0.52 Glucose Level 130 Calcium Level 8.8 Medications Medications Current Medications Hydralazine HCl (Apresoline) 20 mg Q6H PRN IV for SBP >165 Last administered on 01/07/17 11:52; Admin Dose 20 MG; Start 01/07/17 at 11:30 Atorvastatin Calcium (Lipitor) 40 mg QHS PO Last administered on 01/09/17 20: 22; Admin Dose 40 MG; Start 01/07/17 at 21:00 Bupropion HCl (Wellbutrin) 75 mg BID PO Last administered on 01/10/17 09:33; Admin Dose 75 MG; Start 01/07/17 at 21:00 Docusate Sodium (Colace) 100 mg DAILY PO Last administered on 01/10/17 09:33; Admin Dose 100 MG; Start 01/08/17 at 09:00 Losartan Potassium (Cozaar) 25 mg DAILY PO Last administered on 01/10/17 09:33 ; Admin Dose 25 MG; Start 01/08/17 at 09:00 Gabapentin (Neurontin) 300 mg TID PO Last administered on 01/10/17 13:05; Admin Dose 300 MG; Start 01/07/17 at 21:00 Polyethylene Glycol (Miralax) 17 gm DAILY PRN GTB CONSTIPATION Last administered on 01/10/17 09:36; Admin Dose 17 GM; Start 01/09/17 at 17:00 Pantoprazole (Protonix Tab) 40 mg DAILY@06 PO ; Start 01/10/17 at 06:00 Bisacodyl (Dulcolax) 5 mg DAILY PRN PO CONSTIPATION Last administered on 16:30; Admin Dose 5 MG; Start 01/10/17 at 16:00 KARMEN MOTA Jan 10, 2017 16:43
[2017-01-10] MEDS: ATORVASTATIN 40 MG TAB PO SCH (21:01)
[2017-01-11] VITALS (14 sets, daily range): BP systolic 115–158; BP diastolic 51–77; PULSE 81–110; RESP 16–19
[2017-01-11] MEDS: PANTOPRAZOLE (EC) 40 MG TAB PO SCH (05:02)
[2017-01-11 08:50] LABS: BASOPHIL # 0.1 10^3/ul (0.0-0.1); BASOPHILS % 0.7 % (0.0-2.0); EOSINOPHILS # 0.1 10^3/ul (0.0-0.5); HEMATOCRIT 39.7 % (37.0-47.0); HEMOGLOBIN 12.2 g/dl (12.0-16.0); LYMPHOCYTES # 1.2 10^3/ul (0.8-2.9); LYMPHOCYTES % 17.1 % (15.0-51.0); MEAN CORPUSCULAR HEMOGLOBIN 29.8 pg (29.0-33.0); MEAN CORPUSCULAR HGB CONC 30.7 g/dl (32.0-37.0); MEAN CORPUSCULAR VOLUME 97.1 fl (82.0-101.0); MEAN PLATELET VOLUME 10.1 fl (7.4-10.4); MONOCYTE # 0.4 10^3/ul (0.3-0.9); MONOCYTES % 5.8 % (0.0-11.0); NEUTROPHIL # 5.1 10^3/ul (1.6-7.5); PLATELET COUNT 298 10^3/UL (140-415); RED BLOOD COUNT 4.09 10^6/ul (4.20-5.40); RED CELL DISTRIBUTION WIDTH 13.5 % (11.5-14.5); WHITE BLOOD COUNT 6.8 10^3/ul (4.8-10.8)
[2017-01-11] MEDS: GABAPENTIN 300 MG CAP PO SCH ×3 (08:55→20:54)
[2017-01-11] MEDS: DOCUSATE SODIUM 100 MG CAP PO SCH ×2 (08:55→20:54)
[2017-01-11] MEDS: LOSARTAN 25 MG TAB PO SCH (08:55)
[2017-01-11] MEDS: BISACODYL (EC) 5 MG TAB PO PRN (08:56)
[2017-01-11] MEDS: POLYETHYLENE GLYCOL 17 GM PACKET GTB PRN (08:56)
[2017-01-11] MEDS: BUPROPION 75 MG TAB PO SCH ×2 (08:56→20:54)
[2017-01-11 09:26] LABS: CALCIUM 8.8 mg/dl (8.4-10.2); CREATININE 0.54 mg/dl (0.44-1.00); POTASSIUM 3.6 mmol/L (3.5-5.1)
--- NOTE | 2017-01-11 13:28 | PN ---
Date/Time of Note Date/Time of Note DATE: 01/11/17 TIME: 13:27 Assessment/Plan VTE Prophylaxis VTE Prophylaxis Intervention: SCD's Lines/Catheters IV Catheter Type (from Nrs): Saline Lock Urinary Cath still in place: No Assessment/Plan Assessment/Plan Dyspnea C-spine moderate to severe canal stenosis Reserved ejection fraction Weakness Elevated CPK -Patient status post MRI of the spine with evidence of spinal canal stenosis. Undergoing neurologic workup. No new cardiac orders at the current time. -neuro involved -sw family Subjective 24 Hr Interval Summary Free Text/Dictation the patient with no cahnge Exam/Review of Systems Vital Signs Vitals Vital Signs Date Time Temp Pulse Resp B/P Pulse Ox O2 Delivery O2 Flow Rate FiO2 01/11/17 12:20 Nasal Cannula 3.0 01/11/17 12:07 96 01/11/17 11:48 97.7 16 125/60 100 01/11/17 03:25 40 Intake and Output 01/10/17 01/10/17 01/11/17 15:00 23:00 07:00 Intake Total 750 ml Balance 750 ml Results Result Diagram: 01/11/17 0731 01/11/17 0731 Results 24 hrs Laboratory Tests Test 01/11/17 07:31 White Blood Count 6.8 Red Blood Count 4.09 L Hemoglobin 12.2 Hematocrit 39.7 Mean Corpuscular Volume 97.1 Mean Corpuscular Hemoglobin 29.8 Mean Corpuscular Hemoglobin Concent 30.7 L Red Cell Distribution Width 13.5 Platelet Count 298 Mean Platelet Volume 10.1 Neutrophils % 74.0 Lymphocytes % 17.1 Monocytes % 5.8 Eosinophils % 2.0 Basophils % 0.7 Nucleated Red Blood Cells % 0.0 Neutrophils # 5.1 Lymphocytes # 1.2 Monocytes # 0.4 Eosinophils # 0.1 Basophils # 0.1 Nucleated Red Blood Cells # 0.0 Sodium Level 139 Potassium Level 3.6 Chloride Level 99 Carbon Dioxide Level 35 H Anion Gap 9 Blood Urea Nitrogen 10 Creatinine 0.54 Glucose Level 121 Calcium Level 8.8 Medications Medications Current Medications Hydralazine HCl (Apresoline) 20 mg Q6H PRN IV for SBP >165 Last administered on 01/07/17t 11:52; Admin Dose 20 MG; Start 01/07/17 at 11:30 Atorvastatin Calcium (Lipitor) 40 mg QHS PO Last administered on 01/10/17 21: 01; Admin Dose 40 MG; Start 01/07/17 at 21:00 Bupropion HCl (Wellbutrin) 75 mg BID PO Last administered on 01/11/17 08:56; Admin Dose 75 MG; Start 01/07/17 at 21:00 Losartan Potassium (Cozaar) 25 mg DAILY PO Last administered on 01/11/17 08:55 ; Admin Dose 25 MG; Start 01/08/17 at 09:00 Gabapentin (Neurontin) 300 mg TID PO Last administered on 01/11/17 12:49; Admin Dose 300 MG; Start 01/07/17 at 21:00 Polyethylene Glycol (Miralax) 17 gm DAILY PRN GTB CONSTIPATION Last administered on 01/11/17 08:56; Admin Dose 17 GM; Start 01/09/17 at 17:00 Pantoprazole (Protonix Tab) 40 mg DAILY@06 PO Last administered on 01/11/17 05 :02; Admin Dose 40 MG; Start 01/10/17 at 06:00 Bisacodyl (Dulcolax) 5 mg DAILY PRN PO CONSTIPATION Last administered on 08:56; Admin Dose 5 MG; Start 01/10/17 at 16:00 Docusate Sodium (Colace) 100 mg BID PO Last administered on 01/11/17 08:55; Admin Dose 100 MG; Start 01/11/17 at 09:00 ABDI MARTINEZ MD Jan 11, 2017 13:28
--- NOTE | 2017-01-11 14:02 | CONS ---
Date/Time of Note Date/Time of Note DATE: 01/11/17 TIME: 13:54 Assessment/Plan Assessment/Plan Chief Complaint/Hosp Course Right sided weakness with multiple falls Problems: Additional Assessment/Plan 66 yo female with history of cervical degenerative disease, frequent falls prior SDH admitted with worsening SOB. CTH showed no acute process, sub-acute/chronic ischemic changes notable in Right MCA territory diffuse small vessel disease. MRI Brain w/o contrast chronic microvascular changes, no acute ischemic disease MRI Cervical Spine w/o contrast : Multilevel degenerative changes most pronounced at C4-C5 where there is a circumferential disc osteophyte complex with impinging the spinal cord with moderate to severe spinal canal stenosis. There is moderate to severe bilateral foraminal stenosis. This likely affects the exiting bilateral C5 nerve roots. Recommendations: Examination not concerning for myelopathy B12 wnl would also recommend further outpatient EMG/NCV studies to evaluate for neuromuscular disease Speech evaluation Continue PT recommended outpatient PT neurosurgery evaluation Discussed with Dr. Ziegler Consultation Date/Type/Reason Admit Date/Time Jan 07, 2017 at 05:41 Initial Consult Date 01/08/17 Type of Consultation: Neurology Referring Provider: KRISTOPHER REED 24 HR Interval Summary Free Text/Dictation Clinically unchanged. MRI C spine is abnormal causing cord impingement at C5-6. Exam/Review of Systems Vital Signs Vitals Vital Signs Date Time Temp Pulse Resp B/P Pulse Ox O2 Delivery O2 Flow Rate FiO2 01/11/17 12:20 Nasal Cannula 3.0 01/11/17 12:07 96 01/11/17 11:48 97.7 16 125/60 100 01/11/17 03:25 40 Intake and Output 01/10/17 01/10/17 01/11/17 15:00 23:00 07:00 Intake Total 750 ml Balance 750 ml Exam Constitutional: alert, oriented, well developed Psych: nl mood/affect, no complaints Head: atraumatic, normocephalic Eyes: EOMI, nl conjunctiva, nl lids, nl sclera ENMT: mucosa pink and moist, nl external ears & nose, nl lips & teeth, nl nasal mucosa & septum Neck: non-tender, supple Respiratory: clear to auscultation, normal air movement Cardiovascular: nl pulses, regular rate and rhythm Gastrointestinal: nl liver, spleen, non-tender, soft 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, nl mental status, nl speech, other (Left hemiparesis) Results Result Diagram: 01/11/17 0731 01/11/17 0731 Results 24 hrs Laboratory Tests Test 01/11/17 07:31 White Blood Count 6.8 Red Blood Count 4.09 L Hemoglobin 12.2 Hematocrit 39.7 Mean Corpuscular Volume 97.1 Mean Corpuscular Hemoglobin 29.8 Mean Corpuscular Hemoglobin Concent 30.7 L Red Cell Distribution Width 13.5 Platelet Count 298 Mean Platelet Volume 10.1 Neutrophils % 74.0 Lymphocytes % 17.1 Monocytes % 5.8 Eosinophils % 2.0 Basophils % 0.7 Nucleated Red Blood Cells % 0.0 Neutrophils # 5.1 Lymphocytes # 1.2 Monocytes # 0.4 Eosinophils # 0.1 Basophils # 0.1 Nucleated Red Blood Cells # 0.0 Sodium Level 139 Potassium Level 3.6 Chloride Level 99 Carbon Dioxide Level 35 H Anion Gap 9 Blood Urea Nitrogen 10 Creatinine 0.54 Glucose Level 121 Calcium Level 8.8 Medications Medications Current Medications Hydralazine HCl (Apresoline) 20 mg Q6H PRN IV for SBP >165 Last administered on 01/07/17 11:52; Admin Dose 20 MG; Start 01/07/17 at 11:30 Atorvastatin Calcium (Lipitor) 40 mg QHS PO Last administered on 01/10/17 21: 01; Admin Dose 40 MG; Start 01/07/17 at 21:00 Bupropion HCl (Wellbutrin) 75 mg BID PO Last administered on 01/11/17 08:56; Admin Dose 75 MG; Start 01/07/17 at 21:00 Losartan Potassium (Cozaar) 25 mg DAILY PO Last administered on 01/11/17 08:55 ; Admin Dose 25 MG; Start 01/08/17 at 09:00 Gabapentin (Neurontin) 300 mg TID PO Last administered on 01/11/17 12:49; Admin Dose 300 MG; Start 01/07/17 at 21:00 Polyethylene Glycol (Miralax) 17 gm DAILY PRN GTB CONSTIPATION Last administered on 01/11/17 08:56; Admin Dose 17 GM; Start 01/09/17 at 17:00 Pantoprazole (Protonix Tab) 40 mg DAILY@06 PO Last administered on 01/11/17 05 :02; Admin Dose 40 MG; Start 01/10/17 at 06:00 Bisacodyl (Dulcolax) 5 mg DAILY PRN PO CONSTIPATION Last administered on 08:56; Admin Dose 5 MG; Start 01/10/17 at 16:00 Docusate Sodium (Colace) 100 mg BID PO Last administered on 01/11/17 08:55; Admin Dose 100 MG; Start 01/11/17 at 09:00 ELISSA GLASER MD Jan 11, 2017 14:02
--- NOTE | 2017-01-11 14:21 | PN ---
Date/Time of Note Date/Time of Note DATE: 01/11/17 TIME: 14:17 Assessment/Plan VTE Prophylaxis VTE Prophylaxis Intervention: SCD's Lines/Catheters [facility] Type [facility]from [facility] Saline Lock Urinary Cath still in place: No Assessment/Plan Chief Complaint/Hosp Course Patient is tachycardic continues on supplemental oxygen with slow progress with physical therapy. Assessment/Plan - Hypercapnic respiratory failure, resolving. continue oxygen supplementation and breathing treatments. Dr. Davenport is following in pulmonology consultation. - Acute coronary syndrome ruled out. Dr. Patel is following is following and cardiology consultation. - Cervical degenerative disease with spinal canal stenosis. Dr. Sullivan is following in neurology consultation with recommend further outpatient EMG/NCV studies to evaluate for neuromuscular disease - Hx of subdural hematoma. - Hypertension, continue Cozaar - Hyperlipidemia, continue statin - Fibromyalgia, continue Wellbutrin - Constipation, continue bowel regimen Further recommendations based on clinical course. Plan of care discussed with Dr. Venegas Problems: Exam/Review of Systems Vital Signs Vitals Vital Signs Date Time Temp Pulse Resp B/P Pulse Ox O2 Delivery O2 Flow Rate FiO2 01/11/17 12:20 Nasal Cannula 3.0 01/11/17 12:07 96 01/11/17 11:48 97.7 16 125/60 100 01/11/17 03:25 40 Intake and Output 01/10/17 01/10/17 01/11/17 15:00 23:00 07:00 Intake Total 750 ml Balance 750 ml Exam Constitutional: alert, oriented Neck: supple Respiratory: normal air movement Cardiovascular: regular rate and rhythm Gastrointestinal: non-tender, soft Musculoskeletal: muscle weakness Results Result Diagram: 01/11/17 0731 01/11/17 0731 Results 24 hrs Laboratory Tests Test 01/11/17 07:31 White Blood Count 6.8 Red Blood Count 4.09 L Hemoglobin 12.2 Hematocrit 39.7 Mean Corpuscular Volume 97.1 Mean Corpuscular Hemoglobin 29.8 Mean Corpuscular Hemoglobin Concent 30.7 L Red Cell Distribution Width 13.5 Platelet Count 298 Mean Platelet Volume 10.1 Neutrophils % 74.0 Lymphocytes % 17.1 Monocytes % 5.8 Eosinophils % 2.0 Basophils % 0.7 Nucleated Red Blood Cells % 0.0 Neutrophils # 5.1 Lymphocytes # 1.2 Monocytes # 0.4 Eosinophils # 0.1 Basophils # 0.1 Nucleated Red Blood Cells # 0.0 Sodium Level 139 Potassium Level 3.6 Chloride Level 99 Carbon Dioxide Level 35 H Anion Gap 9 Blood Urea Nitrogen 10 Creatinine 0.54 Glucose Level 121 Calcium Level 8.8 Medications Medications Current Medications Hydralazine HCl (Apresoline) 20 mg Q6H PRN IV for SBP >165 Last administered on 01/07/17 11:52; Admin Dose 20 MG; Start 01/07/17 at 11:30 Atorvastatin Calcium (Lipitor) 40 mg QHS PO Last administered on 01/10/17 21: 01; Admin Dose 40 MG; Start 01/07/17 at 21:00 Bupropion HCl (Wellbutrin) 75 mg BID PO Last administered on 01/11/17 08:56; Admin Dose 75 MG; Start 01/07/17 at 21:00 Losartan Potassium (Cozaar) 25 mg DAILY PO Last administered on 01/11/17 08:55 ; Admin Dose 25 MG; Start 01/08/17 at 09:00 Gabapentin (Neurontin) 300 mg TID PO Last administered on 01/11/17 12:49; Admin Dose 300 MG; Start 01/07/17 at 21:00 Polyethylene Glycol (Miralax) 17 gm DAILY PRN GTB CONSTIPATION Last administered on 01/11/17 08:56; Admin Dose 17 GM; Start 01/09/17 at 17:00 Pantoprazole (Protonix Tab) 40 mg DAILY@06 PO Last administered on 01/11/17 05 :02; Admin Dose 40 MG; Start 01/10/17 at 06:00 Bisacodyl (Dulcolax) 5 mg DAILY PRN PO CONSTIPATION Last administered on 08:56; Admin Dose 5 MG; Start 01/10/17 at 16:00 Docusate Sodium (Colace) 100 mg BID PO Last administered on 01/11/17 08:55; Admin Dose 100 MG; Start 01/11/17 at 09:00 KRISTOPHER REED Jan 11, 2017 14:21
--- NOTE | 2017-01-11 16:39 | RADRPT ---
PROCEDURE: XR Chest. CLINICAL INDICATION: Shortness of breath . TECHNIQUE: Single frontal chest x-ray. COMPARISON: 01/07/2017 FINDINGS: There are low lung volumes with left basilar atelectasis and small left pleural effusion. Remainder of the lungs are clear. .. The cardiomediastinal silhouette is unremarkable. The osseous structures are intact. IMPRESSION: Low lung volumes with left basilar atelectasis and small left pleural effusion.. RPTAT: GG .Denton Ontiveros MD, Date Time Electronically viewed and signed by .Denton Ontiveros MD, MD on 01/11/2017 16:39 .L/
--- NOTE | 2017-01-11 17:19 | CONS ---
Date/Time of Note Date/Time of Note DATE: 01/11/17 TIME: 17:16 Consult Date/Type/Reason Admit Date/Time Jan 07, 2017 at 05:41 Initial Consult Date 01/08/17 Type of Consultation: Pulm Ordering Provider: KRISTOPHER REED Subjective Mostly somnolent but rousable, remains confused Objective Vital Signs Date Time Temp Pulse Resp B/P Pulse Ox O2 Delivery O2 Flow Rate FiO2 01/11/17 16:20 Nasal Cannula 2.0 01/11/17 16:10 103 01/11/17 15: 98.7 18 115/51 99 01/11/17 03:25 40 Intake and Output 01/10/17 01/10/17 01/11/17 15:00 23:00 07:00 Intake Total 750 ml Balance 750 ml Exam OBJECTIVE DATA: VITAL SIGNS: NECK: Supple. No JVD. CARDIAC: S1, S2. No added sounds. No murmurs. CHEST: Diminished air entry bilaterally but no rales or wheezes. ABDOMEN: Soft, nontender. No guarding or rebound. EXTREMITIES: No clubbing, cyanosis or edema. NEUROLOGIC: generalized weakness. Results/Medications Result Diagram: 01/11/17 0731 01/11/17 0731 Results 24 hrs Laboratory Tests Test 01/11/17 07:31 White Blood Count 6.8 Red Blood Count 4.09 L Hemoglobin 12.2 Hematocrit 39.7 Mean Corpuscular Volume 97.1 Mean Corpuscular Hemoglobin 29.8 Mean Corpuscular Hemoglobin Concent 30.7 L Red Cell Distribution Width 13.5 Platelet Count 298 Mean Platelet Volume 10.1 Neutrophils % 74.0 Lymphocytes % 17.1 Monocytes % 5.8 Eosinophils % 2.0 Basophils % 0.7 Nucleated Red Blood Cells % 0.0 Neutrophils # 5.1 Lymphocytes # 1.2 Monocytes # 0.4 Eosinophils # 0.1 Basophils # 0.1 Nucleated Red Blood Cells # 0.0 Sodium Level 139 Potassium Level 3.6 Chloride Level 99 Carbon Dioxide Level 35 H Anion Gap 9 Blood Urea Nitrogen 10 Creatinine 0.54 Glucose Level 121 Calcium Level 8.8 Medications Current Medications Hydralazine HCl (Apresoline) 20 mg Q6H PRN IV for SBP >165 Last administered on 01/07/17t 11:52; Admin Dose 20 MG; Start 01/07/17 at 11:30 Atorvastatin Calcium (Lipitor) 40 mg QHS PO Last administered on 01/10/17 21: 01; Admin Dose 40 MG; Start 01/07/17 at 21:00 Bupropion HCl (Wellbutrin) 75 mg BID PO Last administered on 01/11/17 08:56; Admin Dose 75 MG; Start 01/07/17 at 21:00 Losartan Potassium (Cozaar) 25 mg DAILY PO Last administered on 01/11/17 08:55 ; Admin Dose 25 MG; Start 01/08/17 at 09:00 Gabapentin (Neurontin) 300 mg TID PO Last administered on 01/11/17 12:49; Admin Dose 300 MG; Start 01/07/17 at 21:00 Polyethylene Glycol (Miralax) 17 gm DAILY PRN GTB CONSTIPATION Last administered on 01/11/17 08:56; Admin Dose 17 GM; Start 01/09/17 at 17:00 Pantoprazole (Protonix Tab) 40 mg DAILY@06 PO Last administered on 01/11/17 05 :02; Admin Dose 40 MG; Start 01/10/17 at 06:00 Bisacodyl (Dulcolax) 5 mg DAILY PRN PO CONSTIPATION Last administered on 08:56; Admin Dose 5 MG; Start 01/10/17 at 16:00 Docusate Sodium (Colace) 100 mg BID PO Last administered on 01/11/17 08:55; Admin Dose 100 MG; Start 01/11/17 at 09:00 Assessment/Plan Chief Complaint/Hosp Course Assessment 1. 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 2. Unlikely neuromuscular disease causing alveolar hypoventilation 3. History of C-spine disease Plan. 1. Encourage incentive spirometry 2. Outpatient sleep study 3. Neurology recommendations 4. Avoid sedatives and opiates discussed with daughter at length at bedside Problems: JU[facility] M CHAND [facility], [facility] Jan 11, 2017 17:19
--- NOTE | 2017-01-11 19:22 | DS ---
Date/Time of Note Date/Time of Note DATE: 01/11/17 TIME: 19:17 Discharge Summary Admission/Discharge Info Admit Date/Time Jan 07, 2017 at 05:41 Discharge Date/Time Patient Condition: Fair Hx of Present Illness The patient is a 66-year-old female, with history of fibromyalgia, osteoarthritis, and cervical stenosis, with bilateral upper extremity weakness. Patient with history of subdural hematoma diagnosed in April of this year and significant decrease in mobility. Patient is awake, alert; however, cannot provide detailed history. Most of the history was obtained from patient's daughter at the bedside, who is the caregiver for the patient. Apparently, patient was seen by her primary care physician, Dr. Rodriguez. Family stated that the patient deteriorated in mobility and also got more confused and forgetful, and patient was ordered to undergo MRI of the brain. However, patient could not undergo outpatient MRI, due to the fact that she could not lie down flat and appeared in respiratory distress and was sent to the emergency room of [facility]. On evaluation in the emergency room, patient underwent chest x- ray, which revealed shallow inspiration, bilateral low lung zone subsegmental atelectasis, probable small left pleural effusion and degenerative changes within the spine. A superimposed infiltrate cannot be excluded. Patient also underwent brain CT, which may revealed mild diffuse atrophy, microangiopathic ischemic changes, and minimal mucosal thickening, ethmoid air cells. Patient also was placed on supplemental oxygen for complaints of shortness of breath. Patient underwent ABG, which revealed respiratory acidosis. Patient denies any fever. Denies any nausea or vomiting; however, complains of mild epigastric tenderness on palpation. During the examination patient also complains of left upper extremity pain and mild chest pain, and patient is admitted for further evaluation and management to telemetry floor. Hospital Course Transfer to [facility],transfer Patient to [facility] for cervical surgery. 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 Continue oxygen supplementation and breathing treatments. Dr. Davenport is following in pulmonology consultation. - Acute coronary syndrome ruled out. Dr. Patel is following is following and cardiology consultation. - Cervical degenerative disease with spinal canal stenosis. Dr. Sullivan is following in neurology consultation with recommend further outpatient EMG/NCV studies to evaluate for neuromuscular disease - Hx of subdural hematoma. - Hypertension, continue Cozaar - Hyperlipidemia, continue statin - Fibromyalgia, continue Wellbutrin - Constipation, continue bowel regimen Home Meds Reported Medications Losartan Potassium* (Losartan Potassium*) 25 Mg Tablet, 25 MG PO DAILY, TAB 01/07/17 Atorvastatin* (Atorvastatin*) 40 Mg Tablet, 40 MG PO QHS, #30 TAB 01/07/17 Bupropion Hcl (Wellbutrin) 75 Mg Tablet, 75 MG PO BID, TAB 01/07/17 Gabapentin Enacarbil (Horizant) 300 Mg Tablet.er, 900 MG PO TID, TAB 01/07/17 Docusate Sodium (SOF-LAX) 100 Mg Capsule, 100 MG PO, CAP 01/07/17 Diclofenac Sodium* (Diclofenac Sodium*) 50 Mg Tablet.dr, 50 MG PO BID, #60 TAB 01/07/17 Primary Care Provider Not On Staff Doctor Time spent on discharge: > 30 minutes Pending Labs Laboratory Tests Test 01/11/17 07:31 White Blood Count 6.810^3/ul (4.8-10.8) Red Blood Count 4.0910^6/ul (4.20-5.40) Hemoglobin 12.2g/dl (12.0-16.0) Hematocrit 39.7% (37.0-47.0) Mean Corpuscular Volume 97.1fl (82.0-101.0) Mean Corpuscular Hemoglobin 29.8pg (29.0-33.0) Mean Corpuscular Hemoglobin Concent 30.7g/dl (32.0-37.0) Red Cell Distribution Width 13.5% (11.5-14.5) Platelet Count 60824^3/UL (140-415) Mean Platelet Volume 10.1fl (7.4-10.4) Neutrophils % 74.0% (39.0-77.0) Lymphocytes % 17.1% (15.0-51.0) Monocytes % 5.8% (0.0-11.0) Eosinophils % 2.0% (0.0-7.0) Basophils % 0.7% (0.0-2.0) Nucleated Red Blood Cells % 0.0/100WBC (0.0-0.0) Neutrophils # 5.110^3/ul (1.6-7.5) Lymphocytes # 1.210^3/ul (0.8-2.9) Monocytes # 0.410^3/ul (0.3-0.9) Eosinophils # 0.110^3/ul (0.0-0.5) Basophils # 0.110^3/ul (0.0-0.1) Nucleated Red Blood Cells # 0.010^3/ul (0.0-0.0) Sodium Level 139mmol/L (135-144) Potassium Level 3.6mmol/L (3.5-5.1) Chloride Level 99mmol/L (97-110) Carbon Dioxide Level 35mmol/L (21-31) Anion Gap 9 (8-16) Blood Urea Nitrogen 10mg/dl (7-20) Creatinine 0.54mg/dl (0.44-1.00) Glucose Level 121mg/dl (70-220) Calcium Level 8.8mg/dl (8.4-10.2) KRISTOPHER REED Jan 11, 2017 19:22
[2017-01-11] MEDS: ATORVASTATIN 40 MG TAB PO SCH (20:54)
[2017-01-12] VITALS (13 sets, daily range): BP systolic 135–154; BP diastolic 62–82; PULSE 92–100; RESP 16–20
[2017-01-12] MEDS: PANTOPRAZOLE (EC) 40 MG TAB PO SCH (06:13)
[2017-01-12 07:45] LABS: BASOPHIL # 0.1 10^3/ul (0.0-0.1); BASOPHILS % 0.8 % (0.0-2.0); EOSINOPHILS # 0.1 10^3/ul (0.0-0.5); HEMOGLOBIN 12.6 g/dl (12.0-16.0); LYMPHOCYTES # 1.2 10^3/ul (0.8-2.9); LYMPHOCYTES % 19.6 % (15.0-51.0); MEAN CORPUSCULAR HEMOGLOBIN 30.8 pg (29.0-33.0); MEAN CORPUSCULAR HGB CONC 31.5 g/dl (32.0-37.0); MEAN CORPUSCULAR VOLUME 97.8 fl (82.0-101.0); MEAN PLATELET VOLUME 10.1 fl (7.4-10.4); MONOCYTE # 0.4 10^3/ul (0.3-0.9); MONOCYTES % 6.1 % (0.0-11.0); NEUTROPHIL # 4.2 10^3/ul (1.6-7.5); NEUTROPHILS % 71.2 % (39.0-77.0); PLATELET COUNT 297 10^3/UL (140-415); RED BLOOD COUNT 4.09 10^6/ul (4.20-5.40); RED CELL DISTRIBUTION WIDTH 13.3 % (11.5-14.5); WHITE BLOOD COUNT 5.9 10^3/ul (4.8-10.8)
[2017-01-12 08:04] LABS: CALCIUM 8.7 mg/dl (8.4-10.2); CREATININE 0.53 mg/dl (0.44-1.00); POTASSIUM 3.7 mmol/L (3.5-5.1)
--- NOTE | 2017-01-12 09:44 | CONS ---
Date/Time of Note Date/Time of Note DATE: 01/12/17 TIME: 09:42 Assessment/Plan Assessment/Plan Chief Complaint/Hosp Course Dyspnea C-spine moderate to severe canal stenosis Reserved ejection fraction Weakness Elevated CPK Problems: Additional Assessment/Plan stable on tele no new cardiac orders Consultation Date/Type/Reason Admit Date/Time Jan 07, 2017 at 05:41 Initial Consult Date 01/08/17 Type of Consultation: cv Referring Provider: KRISTOPHER REED 24 HR Interval Summary Free Text/Dictation no chest pain, no sob while in supine position, Detailed Summary Respiratory: no complaints Cardiovascular: no complaints Gastrointestinal: no complaints Musculoskeletal: no complaints Skin: no complaints Neurologic: no complaints Endocrine: no complaints Exam/Review of Systems Vital Signs Vitals Vital Signs Date Time Temp Pulse Resp B/P Pulse Ox O2 Delivery O2 Flow Rate FiO2 01/12/17 08:33 98 01/12/17 07:44 98.0 18 138/64 99 01/12/17 05:01 Nasal Cannula 4.0 01/11/17 03:25 40 Intake and Output 01/11/17 01/11/17 01/12/17 15:00 23:00 07:00 Intake Total 740 ml Balance 740 ml Exam Constitutional: alert, oriented Psych: no complaints Head: atraumatic, normocephalic Neck: supple Respiratory: clear to auscultation Cardiovascular: regular rate and rhythm Gastrointestinal: soft Musculoskeletal: nl extremities to inspection Extremities: normal pulses Neurological: ART HISTORY PROFESSOR II-XII intact Results Result Diagram: 01/12/17 0701 01/12/17 0701 Results 24 hrs Laboratory Tests Test 01/12/17 07:01 White Blood Count 5.9 Red Blood Count 4.09 L Hemoglobin 12.6 Hematocrit 40.0 Mean Corpuscular Volume 97.8 Mean Corpuscular Hemoglobin 30.8 Mean Corpuscular Hemoglobin Concent 31.5 L Red Cell Distribution Width 13.3 Platelet Count 297 Mean Platelet Volume 10.1 Neutrophils % 71.2 Lymphocytes % 19.6 Monocytes % 6.1 Eosinophils % 2.0 Basophils % 0.8 Nucleated Red Blood Cells % 0.0 Neutrophils # 4.2 Lymphocytes # 1.2 Monocytes # 0.4 Eosinophils # 0.1 Basophils # 0.1 Nucleated Red Blood Cells # 0.0 Sodium Level 143 Potassium Level 3.7 Chloride Level 99 Carbon Dioxide Level 38 H Anion Gap 10 Blood Urea Nitrogen 9 Creatinine 0.53 Glucose Level 131 Calcium Level 8.7 Medications Medications Current Medications Hydralazine HCl (Apresoline) 20 mg Q6H PRN IV for SBP >165 Last administered on 01/07/17 11:52; Admin Dose 20 MG; Start 01/07/17 at 11:30 Atorvastatin Calcium (Lipitor) 40 mg QHS PO Last administered on 01/11/17 20: 54; Admin Dose 40 MG; Start 01/07/17 at 21:00 Bupropion HCl (Wellbutrin) 75 mg BID PO Last administered on 01/11/17 20:54; Admin Dose 75 MG; Start 01/07/17 at 21:00 Losartan Potassium (Cozaar) 25 mg DAILY PO Last administered on 01/11/17 08:55 ; Admin Dose 25 MG; Start 01/08/17 at 09:00 Gabapentin (Neurontin) 300 mg TID PO Last administered on 01/11/17 20:54; Admin Dose 300 MG; Start 01/07/17 at 21:00 Polyethylene Glycol (Miralax) 17 gm DAILY PRN GTB CONSTIPATION Last administered on 01/11/17 08:56; Admin Dose 17 GM; Start 01/09/17 at 17:00 Pantoprazole (Protonix Tab) 40 mg DAILY@06 PO Last administered on 01/12/17 06 :13; Admin Dose 40 MG; Start 01/10/17 at 06:00 Bisacodyl (Dulcolax) 5 mg DAILY PRN PO CONSTIPATION Last administered on 08:56; Admin Dose 5 MG; Start 01/10/17 at 16:00 Docusate Sodium (Colace) 100 mg BID PO Last administered on 01/11/17 20:54; Admin Dose 100 MG; Start 01/11/17 at 09:00 AMY STAPLETON MD Jan 12, 2017 09:44
[2017-01-12] MEDS: DOCUSATE SODIUM 100 MG CAP PO SCH ×2 (10:17→20:46)
[2017-01-12] MEDS: GABAPENTIN 300 MG CAP PO SCH ×3 (10:17→20:46)
[2017-01-12] MEDS: BUPROPION 75 MG TAB PO SCH ×2 (10:17→20:46)
[2017-01-12] MEDS: LOSARTAN 25 MG TAB PO SCH (10:18)
--- NOTE | 2017-01-12 12:52 | CONS ---
Date/Time of Note Date/Time of Note DATE: 01/12/17 TIME: 12:50 Assessment/Plan Assessment/Plan Chief Complaint/Hosp Course dictated # [id number] Problems: Additional Assessment/Plan Assessment and recommendations; 1. Patient admitted with hypercapnic respiratory failure due to underlying fibromyalgia and possibly cervical spine pathology. 2. History of fibromyalgia. 3. Likely underlying sleep apnea. 4. Diabetes and hypertension. 5. Chronic pain. 6. Bibasilar atelectasis due to hypoventilation. Continue current treatment. Consultation Date/Type/Reason Admit Date/Time Jan 07, 2017 at 05:41 Initial Consult Date 01/08/17 Type of Consultation: Pulmonary Referring Provider: KRISTOPHER REED 24 HR Interval Summary Free Text/Dictation Patient's condition is getting progressively better. According to the patient' s daughter patient is now more verbal. Also reporting decreased pain as well as increased lower extremity movements. General exam; elderly woman, awake alert, currently in no distress. Exam/Review of Systems Vital Signs Vitals Vital Signs Date Time Temp Pulse Resp B/P Pulse Ox O2 Delivery O2 Flow Rate FiO2 01/12/17 12:31 97.8 99 18 135/62 99 01/12/17 07:45 Nasal Cannula 3.0 01/11/17 03:25 40 Intake and Output 01/11/17 01/11/17 01/12/17 15:00 23:00 07:00 Intake Total 740 ml Balance 740 ml Exam HEENT exam; supple neck, no JVD. No lymphadenopathy. Midline trachea. No thyromegaly. Pharynx is clear. Patient has fair dentition. Chest exam; diminished breath sounds bilaterally. S1-S2 audible, no murmurs. Regular rhythm. Abdomen exam; soft, nontender. No organomegaly. Bowel sounds audible. Extremity exam; no peripheral edema. [employer] exam; no focal motor deficit, patient does have generalized weakness. Results Result Diagram: 01/12/17 0701 01/12/17 0701 Results 24 hrs Laboratory Tests Test 01/12/17 07:01 White Blood Count 5.9 Red Blood Count 4.09 L Hemoglobin 12.6 Hematocrit 40.0 Mean Corpuscular Volume 97.8 Mean Corpuscular Hemoglobin 30.8 Mean Corpuscular Hemoglobin Concent 31.5 L Red Cell Distribution Width 13.3 Platelet Count 297 Mean Platelet Volume 10.1 Neutrophils % 71.2 Lymphocytes % 19.6 Monocytes % 6.1 Eosinophils % 2.0 Basophils % 0.8 Nucleated Red Blood Cells % 0.0 Neutrophils # 4.2 Lymphocytes # 1.2 Monocytes # 0.4 Eosinophils # 0.1 Basophils # 0.1 Nucleated Red Blood Cells # 0.0 Sodium Level 143 Potassium Level 3.7 Chloride Level 99 Carbon Dioxide Level 38 H Anion Gap 10 Blood Urea Nitrogen 9 Creatinine 0.53 Glucose Level 131 Calcium Level 8.7 Medications Medications Current Medications Hydralazine HCl (Apresoline) 20 mg Q6H PRN IV for SBP >165 Last administered on 01/07/17 11:52; Admin Dose 20 MG; Start 01/07/17 at 11:30 Atorvastatin Calcium (Lipitor) 40 mg QHS PO Last administered on 01/11/17 20: 54; Admin Dose 40 MG; Start 01/07/17 at 21:00 Bupropion HCl (Wellbutrin) 75 mg BID PO Last administered on 01/12/17 10:17; Admin Dose 75 MG; Start 01/07/17 at 21:00 Losartan Potassium (Cozaar) 25 mg DAILY PO Last administered on 01/12/17 10:18 ; Admin Dose 25 MG; Start 01/08/17 at 09:00 Gabapentin (Neurontin) 300 mg TID PO Last administered on 01/12/17 10:17; Admin Dose 300 MG; Start 01/07/17 at 21:00 Polyethylene Glycol (Miralax) 17 gm DAILY PRN GTB CONSTIPATION Last administered on 01/11/17 08:56; Admin Dose 17 GM; Start 01/09/17 at 17:00 Pantoprazole (Protonix Tab) 40 mg DAILY@06 PO Last administered on 01/12/17 06 :13; Admin Dose 40 MG; Start 01/10/17 at 06:00 Bisacodyl (Dulcolax) 5 mg DAILY PRN PO CONSTIPATION Last administered on 08:56; Admin Dose 5 MG; Start 01/10/17 at 16:00 Docusate Sodium (Colace) 100 mg BID PO Last administered on 01/12/17 10:17; Admin Dose 100 MG; Start 01/11/17 at 09:00 BILL DELGADILLO Jan 12, 2017 12:52
--- NOTE | 2017-01-12 13:52 | CONS ---
Date/Time of Note Date/Time of Note DATE: 01/12/17 TIME: 13:50 Assessment/Plan Assessment/Plan Chief Complaint/Hosp Course Right sided weakness with multiple falls Problems: Additional Assessment/Plan 66 yo female with history of cervical degenerative disease, frequent falls prior SDH admitted with worsening SOB. CTH showed no acute process, sub-acute/chronic ischemic changes notable in Right MCA territory diffuse small vessel disease. MRI Brain w/o contrast chronic microvascular changes, no acute ischemic disease MRI Cervical Spine w/o contrast : Multilevel degenerative changes most pronounced at C4-C5 where there is a circumferential disc osteophyte complex with impinging the spinal cord with moderate to severe spinal canal stenosis. There is moderate to severe bilateral foraminal stenosis. This likely affects the exiting bilateral C5 nerve roots. Recommendations: Examination not concerning for myelopathy B12 wnl would also recommend further outpatient EMG/NCV studies to evaluate for neuromuscular disease Speech evaluation Continue PT recommended outpatient PT neurosurgery evaluation pending Discussed with patient's family who are present in the room Consultation Date/Type/Reason Admit Date/Time Jan 07, 2017 at 05:41 Initial Consult Date 01/08/17 Type of Consultation: Pulmonary Referring Provider: KRISTOPHER REED 24 HR Interval Summary Free Text/Dictation Improving in her right-sided weakness. Neurosurgical evaluation is pending. Exam/Review of Systems Vital Signs Vitals Vital Signs Date Time Temp Pulse Resp B/P Pulse Ox O2 Delivery O2 Flow Rate FiO2 01/12/17 12:31 97.8 99 18 135/62 99 01/12/17 08:10 4.0 01/12/17 07:45 Nasal Cannula 01/11/17 03:25 40 Intake and Output 01/11/17 01/11/17 01/12/17 15:00 23:00 07:00 Intake Total 740 ml Balance 740 ml Exam Constitutional: alert, oriented, well developed Psych: nl mood/affect, no complaints Head: atraumatic, normocephalic Eyes: EOMI, nl conjunctiva, nl lids, nl sclera ENMT: mucosa pink and moist, nl external ears & nose, nl lips & teeth, nl nasal mucosa & septum Neck: non-tender, supple Respiratory: clear to auscultation, normal air movement Cardiovascular: nl pulses, regular rate and rhythm Gastrointestinal: nl liver, spleen, non-tender, soft Genitourinary - Female: nl adnexae, nl external genitalia Musculoskeletal: nl extremities to inspection, nl gait and stance Neurological: EDITORIAL MANAGER II-XII intact, nl mental status, nl speech, other (Mild right -sided weakness which could be patient's subjective) Results Result Diagram: 01/12/17 0701/12/17 07 Results 24 hrs Laboratory Tests Test 01/12/17 07:01 White Blood Count 5.9 Red Blood Count 4.09 L Hemoglobin 12.6 Hematocrit 40.0 Mean Corpuscular Volume 97.8 Mean Corpuscular Hemoglobin 30.8 Mean Corpuscular Hemoglobin Concent 31.5 L Red Cell Distribution Width 13.3 Platelet Count 297 Mean Platelet Volume 10.1 Neutrophils % 71.2 Lymphocytes % 19.6 Monocytes % 6.1 Eosinophils % 2.0 Basophils % 0.8 Nucleated Red Blood Cells % 0.0 Neutrophils # 4.2 Lymphocytes # 1.2 Monocytes # 0.4 Eosinophils # 0.1 Basophils # 0.1 Nucleated Red Blood Cells # 0.0 Sodium Level 143 Potassium Level 3.7 Chloride Level 99 Carbon Dioxide Level 38 H Anion Gap 10 Blood Urea Nitrogen 9 Creatinine 0.53 Glucose Level 131 Calcium Level 8.7 Medications Medications Current Medications Hydralazine HCl (Apresoline) 20 mg Q6H PRN IV for SBP >165 Last administered on 01/07/17 11:52; Admin Dose 20 MG; Start 01/07/17 at 11:30 Atorvastatin Calcium (Lipitor) 40 mg QHS PO Last administered on 01/11/17 20: 54; Admin Dose 40 MG; Start 01/07/17 at 21:00 Bupropion HCl (Wellbutrin) 75 mg BID PO Last administered on 01/12/17 10:17; Admin Dose 75 MG; Start 01/07/17 at 21:00 Losartan Potassium (Cozaar) 25 mg DAILY PO Last administered on 01/12/17 10:18 ; Admin Dose 25 MG; Start 01/08/17 at 09:00 Gabapentin (Neurontin) 300 mg TID PO Last administered on 01/12/17 10:17; Admin Dose 300 MG; Start 01/07/17 at 21:00 Polyethylene Glycol (Miralax) 17 gm DAILY PRN GTB CONSTIPATION Last administered on 01/11/17 08:56; Admin Dose 17 GM; Start 01/09/17 at 17:00 Pantoprazole (Protonix Tab) 40 mg DAILY@06 PO Last administered on 01/12/17 06 :13; Admin Dose 40 MG; Start 01/10/17 at 06:00 Bisacodyl (Dulcolax) 5 mg DAILY PRN PO CONSTIPATION Last administered on 08:56; Admin Dose 5 MG; Start 01/10/17 at 16:00 Docusate Sodium (Colace) 100 mg BID PO Last administered on 01/12/17 10:17; Admin Dose 100 MG; Start 01/11/17 at 09:00 ELISSA GLASER MD Jan 12, 2017 13:52
--- NOTE | 2017-01-12 19:37 | PN ---
Date/Time of Note Date/Time of Note DATE: 01/12/17 TIME: 19:30 Assessment/Plan VTE Prophylaxis VTE Prophylaxis Intervention: other Lines/Catheters IV Catheter Type (from Nrs): Saline Lock Urinary Cath still in place: No Assessment/Plan Assessment/Plan - Hypercapnic respiratory failure, resolving. continue oxygen supplementation and breathing treatments. Dr. Davenport is following in pulmonology consultation. - Acute coronary syndrome ruled out. Dr. Patel is following is following and cardiology consultation. - Cervical degenerative disease with spinal canal stenosis. - neuro sx consult- dr Duggan was notified by Dr Venegas - Dr. Sullivan is following in neurology consultation with recommend further outpatient EMG/NCV studies to evaluate for neuromuscular disease - Hx of subdural hematoma. - Hypertension, continue Cozaar - Hyperlipidemia, continue statin - Fibromyalgia, continue Wellbutrin - Constipation, continue bowel regimen Further recommendations based on clinical course. Plan of care discussed with Dr. Venegas Subjective 24 Hr Interval Summary Free Text/Dictation Sitiing up in wheel chair, family at bed side- all Qs answered, neuro sx consult - dr Duggan was notified by Dr Venegas, staff Respiratory: no complaints Cardiovascular: no complaints Gastrointestinal: no complaints Genitourinary: no complaints Musculoskeletal: no complaints Exam/Review of Systems Vital Signs Vitals Vital Signs Date Time Temp Pulse Resp B/P Pulse Ox O2 Delivery O2 Flow Rate FiO2 01/12/17 19:20 98.3 108 20 152/70 98 01/12/17 17:47 4.0 01/12/17 16:00 Nasal Cannula 01/11/17 03:25 40 Intake and Output 01/11/17 01/11/17 01/12/17 15:00 23:00 07:00 Intake Total 740 ml Balance 740 ml Exam Constitutional: alert Respiratory: normal air movement Cardiovascular: nl pulses Gastrointestinal: non-tender, soft Extremities: normal pulses Neurological: nl speech Results Result Diagram: 01/12/17 0701/12/17 0701 Results 24 hrs Laboratory Tests Test 01/12/17 07:01 White Blood Count 5.9 Red Blood Count 4.09 L Hemoglobin 12.6 Hematocrit 40.0 Mean Corpuscular Volume 97.8 Mean Corpuscular Hemoglobin 30.8 Mean Corpuscular Hemoglobin Concent 31.5 L Red Cell Distribution Width 13.3 Platelet Count 297 Mean Platelet Volume 10.1 Neutrophils % 71.2 Lymphocytes % 19.6 Monocytes % 6.1 Eosinophils % 2.0 Basophils % 0.8 Nucleated Red Blood Cells % 0.0 Neutrophils # 4.2 Lymphocytes # 1.2 Monocytes # 0.4 Eosinophils # 0.1 Basophils # 0.1 Nucleated Red Blood Cells # 0.0 Sodium Level 143 Potassium Level 3.7 Chloride Level 99 Carbon Dioxide Level 38 H Anion Gap 10 Blood Urea Nitrogen 9 Creatinine 0.53 Glucose Level 131 Calcium Level 8.7 Medications Medications Current Medications Hydralazine HCl (Apresoline) 20 mg Q6H PRN IV for SBP >165 Last administered on 01/07/17 11:52; Admin Dose 20 MG; Start 01/07/17 at 11:30 Atorvastatin Calcium (Lipitor) 40 mg QHS PO Last administered on 01/11/17 20: 54; Admin Dose 40 MG; Start 01/07/17 at 21:00 Bupropion HCl (Wellbutrin) 75 mg BID PO Last administered on 01/12/17 10:17; Admin Dose 75 MG; Start 01/07/17 at 21:00 Losartan Potassium (Cozaar) 25 mg DAILY PO Last administered on 01/12/17 10:18 ; Admin Dose 25 MG; Start 01/08/17 at 09:00 Gabapentin (Neurontin) 300 mg TID PO Last administered on 01/12/17 14:19; Admin Dose 300 MG; Start 01/07/17 at 21:00 Polyethylene Glycol (Miralax) 17 gm DAILY PRN GTB CONSTIPATION Last administered on 01/11/17 08:56; Admin Dose 17 GM; Start 01/09/17 at 17:00 Pantoprazole (Protonix Tab) 40 mg DAILY@06 PO Last administered on 01/12/17 06 :13; Admin Dose 40 MG; Start 01/10/17 at 06:00 Bisacodyl (Dulcolax) 5 mg DAILY PRN PO CONSTIPATION Last administered on 08:56; Admin Dose 5 MG; Start 01/10/17 at 16:00 Docusate Sodium (Colace) 100 mg BID PO Last administered on 01/12/17 10:17; Admin Dose 100 MG; Start 01/11/17 at 09:00 KARMEN MOTA Jan 12, 2017 19:36
[2017-01-12] MEDS: ATORVASTATIN 40 MG TAB PO SCH (20:46)
[2017-01-13] VITALS (12 sets, daily range): BP systolic 131–148; BP diastolic 63–71; PULSE 90–98; RESP 16–19
[2017-01-13] MEDS: PANTOPRAZOLE (EC) 40 MG TAB PO SCH (05:57)
[2017-01-13 08:29] LABS: BASOPHIL # 0.1 10^3/ul (0.0-0.1); BASOPHILS % 1.1 % (0.0-2.0); EOSINOPHILS # 0.1 10^3/ul (0.0-0.5); EOSINOPHILS % 3.2 % (0.0-7.0); HEMATOCRIT 38.1 % (37.0-47.0); HEMOGLOBIN 11.7 g/dl (12.0-16.0); LYMPHOCYTES % 22.1 % (15.0-51.0); MEAN CORPUSCULAR HEMOGLOBIN 30.1 pg (29.0-33.0); MEAN CORPUSCULAR HGB CONC 30.7 g/dl (32.0-37.0); MEAN CORPUSCULAR VOLUME 97.9 fl (82.0-101.0); MONOCYTE # 0.3 10^3/ul (0.3-0.9); MONOCYTES % 7.7 % (0.0-11.0); NEUTROPHIL # 2.9 10^3/ul (1.6-7.5); NEUTROPHILS % 65.7 % (39.0-77.0); PLATELET COUNT 254 10^3/UL (140-415); RED BLOOD COUNT 3.89 10^6/ul (4.20-5.40); RED CELL DISTRIBUTION WIDTH 13.5 % (11.5-14.5); WHITE BLOOD COUNT 4.4 10^3/ul (4.8-10.8)
[2017-01-13 08:45] LABS: CALCIUM 8.6 mg/dl (8.4-10.2); CREATININE 0.54 mg/dl (0.44-1.00)
[2017-01-13] MEDS: GABAPENTIN 300 MG CAP PO SCH ×3 (09:12→20:33)
[2017-01-13] MEDS: LOSARTAN 25 MG TAB PO SCH (09:13)
[2017-01-13] MEDS: DOCUSATE SODIUM 100 MG CAP PO SCH ×2 (09:13→20:33)
[2017-01-13] MEDS: BUPROPION 75 MG TAB PO SCH ×2 (09:13→20:33)
--- NOTE | 2017-01-13 12:06 | CONS ---
Date/Time of Note Date/Time of Note DATE: 01/13/17 TIME: 11:55 Assessment/Plan Assessment/Plan Chief Complaint/Hosp Course Moderate cervical spinal cord compression on MRI C spine. Patient has poor respiratory effort. R/O neurodegenerative conditions by neurologist. Also, Cardiac and pulmonary clearance for surgery. I discussed with the daughter, the options of surgery vs no surgery and that her mother is a candidate for posterior cervical decompression and fusion if she rules out for neurodegenerative disease by the neurologist as well as if her lungs and heart are strong enough to withstand cervical fusion surgery as assessed by corresponding specialists. Unfortunately, the goal of the surgery is to prevent any more deterioration and not necessarily to gain improvements. As discussed when neurons out, they do not regenerate. All questions answered, no guarantees given. Problems: Consultation Date/Type/Reason Admit Date/Time Jan 07, 2017 at 05:41 Date of Consultation: Jan 13, 2017 Type of Consultation: Neurosurgery Reason for Consultation Atrophy, lack of coordination and Quadriparesis due to cervical spinal stenosis Hx of Present Illness over 6 m history of gradually progressive quadriparesis, lack of UE and LE coordination with atrophy and difficulty breathing. Constitutional: requiring O2 Respiratory: no complaints Cardiovascular: no complaints Gastrointestinal: no complaints Genitourinary: no complaints Musculoskeletal: no complaints Skin: no complaints Neurologic: other (Awake and alert, oriented x3 conversant, CR N 2-12 unremarkable, Atrophy L hand and chest wall muscles, UE strength 3+/5 R and L UE , 4-/5 both LE, patchy sensory loss, no cerebellar signs ) Endocrine: no complaints Psychological: nl mood/affect, no complaints Social History Alcohol Use: none Smoking Status: Never smoker Exam/Review of Systems Vital Signs Vitals Vital Signs Date Time Temp Pulse Resp B/P Pulse Ox O2 Delivery O2 Flow Rate FiO2 01/13/17 08:50 99 3.0 01/13/17 08:13 98 01/13/17 08:03 97.7 18 138/65 01/13/17 08:00 Nasal Cannula 01/12/17 21:38 36 Intake and Output 01/12/17 01/12/17 01/13/17 15:00 23:00 07:00 Intake Total 120 ml Balance 120 ml Results Result Diagram: 01/13/1772101/13/1722 Results 24 hrs Laboratory Tests Test 01/13/17 07:22 White Blood Count 4.4 #L Red Blood Count 3.89 L Hemoglobin 11.7 L Hematocrit 38.1 Mean Corpuscular Volume 97.9 Mean Corpuscular Hemoglobin 30.1 Mean Corpuscular Hemoglobin Concent 30.7 L Red Cell Distribution Width 13.5 Platelet Count 254 Mean Platelet Volume 10.0 Neutrophils % 65.7 Lymphocytes % 22.1 Monocytes % 7.7 Eosinophils % 3.2 Basophils % 1.1 Nucleated Red Blood Cells % 0.0 Neutrophils # 2.9 Lymphocytes # 1.0 Monocytes # 0.3 Eosinophils # 0.1 Basophils # 0.1 Nucleated Red Blood Cells # 0.0 Sodium Level 143 Potassium Level 4.0 Chloride Level 99 Carbon Dioxide Level 38 H Anion Gap 10 Blood Urea Nitrogen 10 Creatinine 0.54 Glucose Level 121 Calcium Level 8.6 Medications Medications Current Medications Hydralazine HCl (Apresoline) 20 mg Q6H PRN IV for SBP >165 Last administered on 01/07/17 11:52; Admin Dose 20 MG; Start 01/07/17 at 11:30 Atorvastatin Calcium (Lipitor) 40 mg QHS PO Last administered on 01/12/17 20: 46; Admin Dose 40 MG; Start 01/07/17 at 21:00 Bupropion HCl (Wellbutrin) 75 mg BID PO Last administered on 01/13/17 09:13; Admin Dose 75 MG; Start 01/07/17 at 21:00 Losartan Potassium (Cozaar) 25 mg DAILY PO Last administered on 01/13/17 09:13 ; Admin Dose 25 MG; Start 01/08/17 at 09:00 Gabapentin (Neurontin) 300 mg TID PO Last administered on 01/13/17 09:12; Admin Dose 300 MG; Start 01/07/17 at 21:00 Polyethylene Glycol (Miralax) 17 gm DAILY PRN GTB CONSTIPATION Last administered on 01/11/17 08:56; Admin Dose 17 GM; Start 01/09/17 at 17:00 Pantoprazole (Protonix Tab) 40 mg DAILY@06 PO Last administered on 01/13/17 05 :57; Admin Dose 40 MG; Start 01/10/17 at 06:00 Bisacodyl (Dulcolax) 5 mg DAILY PRN PO CONSTIPATION Last administered on 08:56; Admin Dose 5 MG; Start 01/10/17 at 16:00 Docusate Sodium (Colace) 100 mg BID PO Last administered on 01/13/17 09:13; Admin Dose 100 MG; Start 01/11/17 at 09:00 ADRIÁN MÉNDEZ MD Jan 13, 2017 12:06
--- NOTE | 2017-01-13 12:17 | CONS ---
Date/Time of Note Date/Time of Note DATE: 01/13/17 TIME: 12:15 Assessment/Plan Assessment/Plan Chief Complaint/Hosp Course dictated # [id number] Problems: Additional Assessment/Plan Plan and recommendations; 1. Patient admitted with shortness of breath due to hypercapnic respiratory failure likely from severe hypoventilation. 2. History of diabetes and hypertension. 3. Chronic pain. 4. History of fibromyalgia. 5. Possibly cervical spine pathology. Continue current treatment. Patient will need further workup regarding any cervical spine pathology. Consultation Date/Type/Reason Admit Date/Time Jan 07, 2017 at 05:41 Initial Consult Date 01/08/17 Type of Consultation: Pulmonary Referring Provider: KRISTOPHER REED 24 HR Interval Summary Free Text/Dictation Patient condition stable. Reports shortness of breath. Able to talk now. Also reporting decreased lower extremity weakness. Able to eat as well. General exam; elderly woman, awake alert currently in no distress. Sitting in a chair by bedside. Exam/Review of Systems Vital Signs Vitals Vital Signs Date Time Temp Pulse Resp B/P Pulse Ox O2 Delivery O2 Flow Rate FiO2 01/13/17 12:07 93 01/13/17 08:50 99 3.0 01/13/17 08:03 97.7 18 138/65 01/13/17 08:00 Nasal Cannula 01/12/17 21:38 36 Intake and Output 01/12/17 01/12/17 01/13/17 15:00 23:00 07:00 Intake Total 120 ml Balance 120 ml Exam HEENT exam; supple neck, no JVD. No lymphadenopathy. Midline trachea. No thyromegaly. Pharynx is clear. Patient has fair dentition. Chest exam; diminished breath sounds bilaterally. No added sounds. S1-S2 audible, no murmurs. Regular rhythm. Abdomen exam; soft, nontender. No organomegaly. Bowel sounds audible. Extremity exam; no edema. [employer] PR[employer] OPERATOR ASSISTANT exam; no focal motor deficit. Results Result Diagram: 01/13/17 0722 01/13/17 0722 Results 24 hrs Laboratory Tests Test 01/13/17 07:22 White Blood Count 4.4 #L Red Blood Count 3.89 L Hemoglobin 11.7 L Hematocrit 38.1 Mean Corpuscular Volume 97.9 Mean Corpuscular Hemoglobin 30.1 Mean Corpuscular Hemoglobin Concent 30.7 L Red Cell Distribution Width 13.5 Platelet Count 254 Mean Platelet Volume 10.0 Neutrophils % 65.7 Lymphocytes % 22.1 Monocytes % 7.7 Eosinophils % 3.2 Basophils % 1.1 Nucleated Red Blood Cells % 0.0 Neutrophils # 2.9 Lymphocytes # 1.0 Monocytes # 0.3 Eosinophils # 0.1 Basophils # 0.1 Nucleated Red Blood Cells # 0.0 Sodium Level 143 Potassium Level 4.0 Chloride Level 99 Carbon Dioxide Level 38 H Anion Gap 10 Blood Urea Nitrogen 10 Creatinine 0.54 Glucose Level 121 Calcium Level 8.6 Medications Medications Current Medications Hydralazine HCl (Apresoline) 20 mg Q6H PRN IV for SBP >165 Last administered on 01/07/17 11:52; Admin Dose 20 MG; Start 01/07/17 at 11:30 Atorvastatin Calcium (Lipitor) 40 mg QHS PO Last administered on 01/12/17 20: 46; Admin Dose 40 MG; Start 01/07/17 at 21:00 Bupropion HCl (Wellbutrin) 75 mg BID PO Last administered on 01/13/17 09:13; Admin Dose 75 MG; Start 01/07/17 at 21:00 Losartan Potassium (Cozaar) 25 mg DAILY PO Last administered on 01/13/17 09:13 ; Admin Dose 25 MG; Start 01/08/17 at 09:00 Gabapentin (Neurontin) 300 mg TID PO Last administered on 01/13/17 09:12; Admin Dose 300 MG; Start 01/07/17 at 21:00 Polyethylene Glycol (Miralax) 17 gm DAILY PRN GTB CONSTIPATION Last administered on 01/11/17 08:56; Admin Dose 17 GM; Start 01/09/17 at 17:00 Pantoprazole (Protonix Tab) 40 mg DAILY@06 PO Last administered on 01/13/17 05 :57; Admin Dose 40 MG; Start 01/10/17 at 06:00 Bisacodyl (Dulcolax) 5 mg DAILY PRN PO CONSTIPATION Last administered on 08:56; Admin Dose 5 MG; Start 01/10/17 at 16:00 Docusate Sodium (Colace) 100 mg BID PO Last administered on 01/13/17 09:13; Admin Dose 100 MG; Start 9/22/17 at 09:00 BILL DELGADILLO Jan 13, 2017 12:17
--- NOTE | 2017-01-13 13:08 | CONS ---
Date/Time of Note Date/Time of Note DATE: 01/13/17 TIME: 13:05 Assessment/Plan Assessment/Plan Chief Complaint/Hosp Course Right sided weakness with multiple falls Problems: Additional Assessment/Plan 66 yo female with history of cervical degenerative disease, frequent falls prior SDH admitted with worsening SOB. CTH showed no acute process, sub-acute/chronic ischemic changes notable in Right MCA territory diffuse small vessel disease. MRI Brain w/o contrast chronic microvascular changes, no acute ischemic disease MRI Cervical Spine w/o contrast : Multilevel degenerative changes most pronounced at C4-C5 where there is a circumferential disc osteophyte complex with impinging the spinal cord with moderate to severe spinal canal stenosis. There is moderate to severe bilateral foraminal stenosis. This likely affects the exiting bilateral C5 nerve roots. Recommendations: Examination not concerning for myelopathy B12 wnl would also recommend further outpatient EMG/NCV studies to evaluate for neuromuscular disease Speech evaluation Continue PT recommended outpatient PT Discussed with patient's daughter who are present in the room DC planning Outpatient therapies Consultation Date/Type/Reason Admit Date/Time Jan 07, 2017 at 05:41 Initial Consult Date 01/08/17 Type of Consultation: Pulmonary Reason for Consultation Right-sided weakness Referring Provider: KRISTOPHER REED 24 HR Interval Summary Free Text/Dictation She has been improving in her right-sided weakness. She was able to walk with physical therapy. She has also seen by neurosurgery who wants patient to undergo EMG and nerve conduction studies before surgeries. Exam/Review of Systems Vital Signs Vitals Vital Signs Date Time Temp Pulse Resp B/P Pulse Ox O2 Delivery O2 Flow Rate FiO2 01/13/17 12:17 97.9 91 18 145/71 99 01/13/17 08:50 3.0 01/13/17 08:00 Nasal Cannula 01/12/17 21:38 36 Intake and Output 01/12/17 01/12/17 01/13/17 15:00 23:00 07:00 Intake Total 120 ml Balance 120 ml Exam Constitutional: alert, oriented, well developed Psych: nl mood/affect, no complaints Head: atraumatic, normocephalic Eyes: EOMI, nl conjunctiva, nl lids, nl sclera ENMT: mucosa pink and moist, nl external ears & nose, nl lips & teeth, nl nasal mucosa & septum Neck: non-tender, supple Respiratory: clear to auscultation, normal air movement Cardiovascular: nl pulses, regular rate and rhythm Gastrointestinal: nl liver, spleen, soft Musculoskeletal: nl extremities to inspection Extremities: normal pulses Neurological: SHAREPOINT ENGINEER II-XII intact, nl mental status, nl speech (Mild right sided weakness) Skin: nl turgor, rash or lesions Lymph: nl lymph nodes Results Result Diagram: 01/13/17 0722 01/13/17 0722 Results 24 hrs Laboratory Tests Test 01/13/17 07:22 White Blood Count 4.4 #L Red Blood Count 3.89 L Hemoglobin 11.7 L Hematocrit 38.1 Mean Corpuscular Volume 97.9 Mean Corpuscular Hemoglobin 30.1 Mean Corpuscular Hemoglobin Concent 30.7 L Red Cell Distribution Width 13.5 Platelet Count 254 Mean Platelet Volume 10.0 Neutrophils % 65.7 Lymphocytes % 22.1 Monocytes % 7.7 Eosinophils % 3.2 Basophils % 1.1 Nucleated Red Blood Cells % 0.0 Neutrophils # 2.9 Lymphocytes # 1.0 Monocytes # 0.3 Eosinophils # 0.1 Basophils # 0.1 Nucleated Red Blood Cells # 0.0 Sodium Level 143 Potassium Level 4.0 Chloride Level 99 Carbon Dioxide Level 38 H Anion Gap 10 Blood Urea Nitrogen 10 Creatinine 0.54 Glucose Level 121 Calcium Level 8.6 Medications Medications Current Medications Hydralazine HCl (Apresoline) 20 mg Q6H PRN IV for SBP >165 Last administered on 01/07/17 11:52; Admin Dose 20 MG; Start 01/07/17 at 11:30 Atorvastatin Calcium (Lipitor) 40 mg QHS PO Last administered on 01/12/17 20: 46; Admin Dose 40 MG; Start 01/07/17 at 21:00 Bupropion HCl (Wellbutrin) 75 mg BID PO Last administered on 01/13/17 09:13; Admin Dose 75 MG; Start 01/07/17 at 21:00 Losartan Potassium (Cozaar) 25 mg DAILY PO Last administered on 01/13/17 09:13 ; Admin Dose 25 MG; Start 01/08/17 at 09:00 Gabapentin (Neurontin) 300 mg TID PO Last administered on 01/13/17 09:12; Admin Dose 300 MG; Start 01/07/17 at 21:00 Polyethylene Glycol (Miralax) 17 gm DAILY PRN GTB CONSTIPATION Last administered on 01/11/17 08:56; Admin Dose 17 GM; Start 01/09/17 at 17:00 Pantoprazole (Protonix Tab) 40 mg DAILY@06 PO Last administered on 01/13/17 05 :57; Admin Dose 40 MG; Start 01/10/17 at 06:00 Bisacodyl (Dulcolax) 5 mg DAILY PRN PO CONSTIPATION Last administered on 08:56; Admin Dose 5 MG; Start 01/10/17 at 16:00 Docusate Sodium (Colace) 100 mg BID PO Last administered on 01/13/17 09:13; Admin Dose 100 MG; Start 01/11/17 at 09:00 ELISSA GLASER MD Jan 13, 2017 13:08
--- NOTE | 2017-01-13 16:19 | PN ---
Date/Time of Note Date/Time of Note DATE: 01/13/17 TIME: 16:18 Assessment/Plan VTE Prophylaxis VTE Prophylaxis Intervention: other Lines/Catheters [facility] Saline Lock Urinary Cath still in place: No Assessment/Plan Assessment/Plan - Hypercapnic respiratory failure, resolving. continue oxygen supplementation and breathing treatments. Dr. Davenport is following in pulmonology consultation. - Acute coronary syndrome ruled out. Dr. Patel is following is following and cardiology consultation. - Cervical degenerative disease with spinal canal stenosis. - neuro sx consult- dr Duggan was notified by Dr Venegas - Dr. Sullivan is following in neurology consultation with recommend further outpatient EMG/NCV studies to evaluate for neuromuscular disease - Hx of subdural hematoma. - Hypertension, continue Cozaar - Hyperlipidemia, continue statin - Fibromyalgia, continue Wellbutrin - Constipation, continue bowel regimen Further recommendations based on clinical course. Plan of care discussed with Dr. Venegas Subjective 24 Hr Interval Summary Free Text/Dictation afebrile, vss, seems comfortable, dw staff. Cardiovascular: no complaints Gastrointestinal: no complaints Genitourinary: no complaints Musculoskeletal: no complaints Exam/Review of Systems Vital Signs Vitals Vital Signs Date Time Temp Pulse Resp B/P Pulse Ox O2 Delivery O2 Flow Rate FiO2 01/13/17 15:51 97.7 91 16 131/63 100 01/13/17 08:50 3.0 01/13/17 08:00 Nasal Cannula 01/12/17 21:38 36 Intake and Output 01/12/17 01/12/17 01/13/17 15:00 23:00 07:00 Intake Total 120 ml Balance 120 ml Exam Constitutional: alert, oriented Respiratory: clear to auscultation, normal air movement Cardiovascular: nl pulses Extremities: normal pulses Neurological: nl speech Results Result Diagram: 01/13/17 0722 01/13/17 0722 Results 24 hrs Laboratory Tests Test 01/13/17 07:22 White Blood Count 4.4 #L Red Blood Count 3.89 L Hemoglobin 11.7 L Hematocrit 38.1 Mean Corpuscular Volume 97.9 Mean Corpuscular Hemoglobin 30.1 Mean Corpuscular Hemoglobin Concent 30.7 L Red Cell Distribution Width 13.5 Platelet Count 254 Mean Platelet Volume 10.0 Neutrophils % 65.7 Lymphocytes % 22.1 Monocytes % 7.7 Eosinophils % 3.2 Basophils % 1.1 Nucleated Red Blood Cells % 0.0 Neutrophils # 2.9 Lymphocytes # 1.0 Monocytes # 0.3 Eosinophils # 0.1 Basophils # 0.1 Nucleated Red Blood Cells # 0.0 Sodium Level 143 Potassium Level 4.0 Chloride Level 99 Carbon Dioxide Level 38 H Anion Gap 10 Blood Urea Nitrogen 10 Creatinine 0.54 Glucose Level 121 Calcium Level 8.6 Medications Medications Current Medications Hydralazine HCl (Apresoline) 20 mg Q6H PRN IV for SBP >165 Last administered on 01/07/17 11:52; Admin Dose 20 MG; Start 01/07/17 at 11:30 Atorvastatin Calcium (Lipitor) 40 mg QHS PO Last administered on 01/12/17 20: 46; Admin Dose 40 MG; Start 01/07/17 at 21:00 Bupropion HCl (Wellbutrin) 75 mg BID PO Last administered on 01/13/17 09:13; Admin Dose 75 MG; Start 01/07/17 at 21:00 Losartan Potassium (Cozaar) 25 mg DAILY PO Last administered on 01/13/17 09:13 ; Admin Dose 25 MG; Start 01/08/17 at 09:00 Gabapentin (Neurontin) 300 mg TID PO Last administered on 01/13/17 13:32; Admin Dose 300 MG; Start 01/07/17 at 21:00 Polyethylene Glycol (Miralax) 17 gm DAILY PRN GTB CONSTIPATION Last administered on 01/11/17 08:56; Admin Dose 17 GM; Start 01/09/17 at 17:00 Pantoprazole (Protonix Tab) 40 mg DAILY@06 PO Last administered on 01/13/17 05 :57; Admin Dose 40 MG; Start 01/10/17 at 06:00 Bisacodyl (Dulcolax) 5 mg DAILY PRN PO CONSTIPATION Last administered on 08:56; Admin Dose 5 MG; Start 01/10/17 at 16:00 Docusate Sodium (Colace) 100 mg BID PO Last administered on 01/13/17 09:13; Admin Dose 100 MG; Start 01/11/17 at 09:00 KARMEN MOTA Jan 13, 2017 16:19
[2017-01-13] MEDS: ATORVASTATIN 40 MG TAB PO SCH (20:33)
[2017-01-14] VITALS (15 sets, daily range): BP systolic 116–133; BP diastolic 58–72; PULSE 67–100; RESP 18–20
[2017-01-14] MEDS: PANTOPRAZOLE (EC) 40 MG TAB PO SCH ×2 (06:00→07:51)
[2017-01-14 07:52] LABS: BASOPHIL # 0.1 10^3/ul (0.0-0.1); BASOPHILS % 1.2 % (0.0-2.0); EOSINOPHILS # 0.2 10^3/ul (0.0-0.5); HEMATOCRIT 38.1 % (37.0-47.0); HEMOGLOBIN 11.6 g/dl (12.0-16.0); LYMPHOCYTES # 1.1 10^3/ul (0.8-2.9); LYMPHOCYTES % 26.6 % (15.0-51.0); MEAN CORPUSCULAR HEMOGLOBIN 29.6 pg (29.0-33.0); MEAN CORPUSCULAR HGB CONC 30.4 g/dl (32.0-37.0); MEAN CORPUSCULAR VOLUME 97.2 fl (82.0-101.0); MEAN PLATELET VOLUME 9.9 fl (7.4-10.4); MONOCYTE # 0.4 10^3/ul (0.3-0.9); MONOCYTES % 8.4 % (0.0-11.0); NEUTROPHIL # 2.5 10^3/ul (1.6-7.5); NEUTROPHILS % 58.8 % (39.0-77.0); PLATELET COUNT 250 10^3/UL (140-415); RED BLOOD COUNT 3.92 10^6/ul (4.20-5.40); RED CELL DISTRIBUTION WIDTH 13.5 % (11.5-14.5); WHITE BLOOD COUNT 4.2 10^3/ul (4.8-10.8)
[2017-01-14 08:15] LABS: CALCIUM 9.1 mg/dl (8.4-10.2); CREATININE 0.62 mg/dl (0.44-1.00); POTASSIUM 3.6 mmol/L (3.5-5.1)
[2017-01-14] MEDS: DOCUSATE SODIUM 100 MG CAP PO SCH ×2 (08:18→20:47)
[2017-01-14] MEDS: GABAPENTIN 300 MG CAP PO SCH ×3 (08:18→20:47)
[2017-01-14] MEDS: BUPROPION 75 MG TAB PO SCH ×2 (08:18→20:47)
[2017-01-14] MEDS: LOSARTAN 25 MG TAB PO SCH (08:19)
--- NOTE | 2017-01-14 13:44 | PN ---
Date/Time of Note Date/Time of Note DATE: 01/14/17 TIME: 13:42 Assessment/Plan VTE Prophylaxis VTE Prophylaxis Intervention: ambulation Lines/Catheters IV Catheter Type (from Nrs): Saline Lock Urinary Cath still in place: No Assessment/Plan Assessment/Plan Impression Moderate cervical spinal cord compression on MRI C spine poor respiratory effort. R/O neurodegenerative conditions by neurologist Daughter states increase RLE strength today. Plan Candidate for PCDF but risk/complications/benefits discussed thoroughly with patient and daughter at bedside Pt and daughter expressed that they would like to continue with pt/ot along with obtaining EMG/NCS first before any surgical intervention will cont. to follow Neurology following Subjective 24 Hr Interval Summary Free Text/Dictation S: NAD Per daughter increasing strength to RLE , now able to lift leg off bed. Exam/Review of Systems Vital Signs Vitals Vital Signs Date Time Temp Pulse Resp B/P Pulse Ox O2 Delivery O2 Flow Rate FiO2 01/14/17 12:00 92 01/14/17 11:51 97.5 20 120/58 100 01/14/17 08:00 Nasal Cannula 2.0 01/14/17 05:30 40 Intake and Output 01/13/17 01/13/17 01/14/17 14:59 22:59 06:59 Intake Total 300 ml Balance 300 ml Exam Neurological: other (MS: Awake, alert, oriented x 4 CN; PERRL M: moving ext x 4, no change except for slight increase RLE ) Results Result Diagram: 01/14/17 0711 01/14/17 0711 Results 24 hrs Laboratory Tests Test 01/14/17 07:11 White Blood Count 4.2 L Red Blood Count 3.92 L Hemoglobin 11.6 L Hematocrit 38.1 Mean Corpuscular Volume 97.2 Mean Corpuscular Hemoglobin 29.6 Mean Corpuscular Hemoglobin Concent 30.4 L Red Cell Distribution Width 13.5 Platelet Count 250 Mean Platelet Volume 9.9 Neutrophils % 58.8 Lymphocytes % 26.6 Monocytes % 8.4 Eosinophils % 5.0 Basophils % 1.2 Nucleated Red Blood Cells % 0.0 Neutrophils # 2.5 Lymphocytes # 1.1 Monocytes # 0.4 Eosinophils # 0.2 Basophils # 0.1 Nucleated Red Blood Cells # 0.0 Sodium Level 142 Potassium Level 3.6 Chloride Level 99 Carbon Dioxide Level 39 H Anion Gap 8 Blood Urea Nitrogen 11 Creatinine 0.62 Glucose Level 124 Calcium Level 9.1 Medications Medications Current Medications Hydralazine HCl (Apresoline) 20 mg Q6H PRN IV for SBP >165 Last administered on 01/07/17 11:52; Admin Dose 20 MG; Start 01/07/17 at 11:30 Atorvastatin Calcium (Lipitor) 40 mg QHS PO Last administered on 01/13/17 20: 33; Admin Dose 40 MG; Start 01/07/17 at 21:00 Bupropion HCl (Wellbutrin) 75 mg BID PO Last administered on 01/14/17 08:18; Admin Dose 75 MG; Start 01/07/17 at 21:00 Losartan Potassium (Cozaar) 25 mg DAILY PO Last administered on 01/14/17 08:19 ; Admin Dose 25 MG; Start 01/08/17 at 09:00 Gabapentin (Neurontin) 300 mg TID PO Last administered on 01/14/17 12:17; Admin Dose 300 MG; Start 01/07/17 at 21:00 Polyethylene Glycol (Miralax) 17 gm DAILY PRN GTB CONSTIPATION Last administered on 01/11/17 08:56; Admin Dose 17 GM; Start 01/09/17 at 17:00 Pantoprazole (Protonix Tab) 40 mg DAILY@06 PO Last administered on 01/14/17 07 :51; Admin Dose 40 MG; Start 01/10/17 at 06:00 Bisacodyl (Dulcolax) 5 mg DAILY PRN PO CONSTIPATION Last administered on 08:56; Admin Dose 5 MG; Start 01/10/17 at 16:00 Docusate Sodium (Colace) 100 mg BID PO Last administered on 01/14/17 08:18; Admin Dose 100 MG; Start 01/11/17 at 09:00 CORINE THOMAS NP Jan 14, 2017 13:44
--- NOTE | 2017-01-14 14:23 | CONS ---
Date/Time of Note Date/Time of Note DATE: 01/14/17 TIME: 14:21 Assessment/Plan Assessment/Plan Additional Assessment/Plan Dyspnea C-spine moderate to severe canal stenosis Reserved ejection fraction Weakness Elevated CPK -Patient undergoing physical therapy and occupational therapy. No new cardiac orders at the current time. Could be transferred off telemetry from a cardiac standpoint. Consultation Date/Type/Reason Admit Date/Time Jan 07, 2017 at 05:41 Initial Consult Date 01/08/17 Type of Consultation: cv Referring Provider: KRISTOPHER REED 24 HR Interval Summary Free Text/Dictation Overall feeling better, denies shortness of breath, having more movement Exam/Review of Systems Vital Signs Vitals Vital Signs Date Time Temp Pulse Resp B/P Pulse Ox O2 Delivery O2 Flow Rate FiO2 01/14/17 12:00 92 01/14/17 11:51 97.5 20 120/58 100 01/14/17 08:00 Nasal Cannula 2.0 01/14/17 05:30 40 Intake and Output 01/13/17 01/13/17 01/14/17 15:00 23:00 07:00 Intake Total 300 ml Balance 300 ml Exam No apparent distress Constitutional: alert, oriented Head: normocephalic Respiratory: other (Coarse breath sounds bilaterally, no wheezing) Cardiovascular: other (S1-S2 heard), regular rate and rhythm Gastrointestinal: bowel sounds, non-tender, soft Extremities: edema (Trace) Results Result Diagram: 01/14/17 0711 01/14/17 0711 Results 24 hrs Laboratory Tests Test 01/14/17 07:11 White Blood Count 4.2 L Red Blood Count 3.92 L Hemoglobin 11.6 L Hematocrit 38.1 Mean Corpuscular Volume 97.2 Mean Corpuscular Hemoglobin 29.6 Mean Corpuscular Hemoglobin Concent 30.4 L Red Cell Distribution Width 13.5 Platelet Count 250 Mean Platelet Volume 9.9 Neutrophils % 58.8 Lymphocytes % 26.6 Monocytes % 8.4 Eosinophils % 5.0 Basophils % 1.2 Nucleated Red Blood Cells % 0.0 Neutrophils # 2.5 Lymphocytes # 1.1 Monocytes # 0.4 Eosinophils # 0.2 Basophils # 0.1 Nucleated Red Blood Cells # 0.0 Sodium Level 142 Potassium Level 3.6 Chloride Level 99 Carbon Dioxide Level 39 H Anion Gap 8 Blood Urea Nitrogen 11 Creatinine 0.62 Glucose Level 124 Calcium Level 9.1 Medications Medications Current Medications Hydralazine HCl (Apresoline) 20 mg Q6H PRN IV for SBP >165 Last administered on 01/07/17 11:52; Admin Dose 20 MG; Start 01/07/17 at 11:30 Atorvastatin Calcium (Lipitor) 40 mg QHS PO Last administered on 01/13/17 20: 33; Admin Dose 40 MG; Start 01/07/17 at 21:00 Bupropion HCl (Wellbutrin) 75 mg BID PO Last administered on 01/14/17 08:18; Admin Dose 75 MG; Start 01/07/17 at 21:00 Losartan Potassium (Cozaar) 25 mg DAILY PO Last administered on 01/14/17 08:19 ; Admin Dose 25 MG; Start 01/08/17 at 09:00 Gabapentin (Neurontin) 300 mg TID PO Last administered on 01/14/17 12:17; Admin Dose 300 MG; Start 01/07/17 at 21:00 Polyethylene Glycol (Miralax) 17 gm DAILY PRN GTB CONSTIPATION Last administered on 01/11/17 08:56; Admin Dose 17 GM; Start 01/09/17 at 17:00 Pantoprazole (Protonix Tab) 40 mg DAILY@06 PO Last administered on 01/14/17 07 :51; Admin Dose 40 MG; Start 01/10/17 at 06:00 Bisacodyl (Dulcolax) 5 mg DAILY PRN PO CONSTIPATION Last administered on 08:56; Admin Dose 5 MG; Start 01/10/17 at 16:00 Docusate Sodium (Colace) 100 mg BID PO Last administered on 01/14/17 08:18; Admin Dose 100 MG; Start 01/11/17 at 09:00 Carlos Patel DO Jan 14, 2017 14:23
--- NOTE | 2017-01-14 14:34 | CONS ---
Date/Time of Note Date/Time of Note DATE: 01/14/17 TIME: 14:32 Consult Date/Type/Reason Admit Date/Time Jan 07, 2017 at 05:41 Initial Consult Date 01/08/17 Type of Consultation: Pulmonary Ordering Provider: KRISTOPHER REED Subjective Patient comfortable this morning no new events. Objective Vital Signs Date Time Temp Pulse Resp B/P Pulse Ox O2 Delivery O2 Flow Rate FiO2 01/14/17 12:00 92 01/14/17 11:51 97.5 20 120/58 100 01/14/17 08:00 Nasal Cannula 2.0 01/14/17 05:30 40 Intake and Output 01/13/17 01/13/17 01/14/17 15:00 23:00 07:00 Intake Total 300 ml Balance 300 ml Exam GENERAL: Elderly lady appears comfortable at rest VITAL SIGNS: per chart NECK: Supple. No JVD or lymphadenopathy. CARDIAC EXAM: S1, S2. No added sounds or murmurs. CHEST: clear bilaterally, No added sounds, rales or wheezes ABDOMEN: Soft, nontender. No guarding or rebound. EXTREMITIES: No cyanosis, clubbing or edema. NEUROLOGIC: Generalized weakness. No focal deficits. Results/Medications Result Diagram: 01/14/17 0711 01/14/17 0711 Results 24 hrs Laboratory Tests Test 01/14/17 07:11 White Blood Count 4.2 L Red Blood Count 3.92 L Hemoglobin 11.6 L Hematocrit 38.1 Mean Corpuscular Volume 97.2 Mean Corpuscular Hemoglobin 29.6 Mean Corpuscular Hemoglobin Concent 30.4 L Red Cell Distribution Width 13.5 Platelet Count 250 Mean Platelet Volume 9.9 Neutrophils % 58.8 Lymphocytes % 26.6 Monocytes % 8.4 Eosinophils % 5.0 Basophils % 1.2 Nucleated Red Blood Cells % 0.0 Neutrophils # 2.5 Lymphocytes # 1.1 Monocytes # 0.4 Eosinophils # 0.2 Basophils # 0.1 Nucleated Red Blood Cells # 0.0 Sodium Level 142 Potassium Level 3.6 Chloride Level 99 Carbon Dioxide Level 39 H Anion Gap 8 Blood Urea Nitrogen 11 Creatinine 0.62 Glucose Level 124 Calcium Level 9.1 Medications Current Medications Hydralazine HCl (Apresoline) 20 mg Q6H PRN IV for SBP >165 Last administered on 01/07/17t 11:52; Admin Dose 20 MG; Start 01/07/17 at 11:30 Atorvastatin Calcium (Lipitor) 40 mg QHS PO Last administered on 01/13/17 20: 33; Admin Dose 40 MG; Start 01/07/17 at 21:00 Bupropion HCl (Wellbutrin) 75 mg BID PO Last administered on 01/14/17 08:18; Admin Dose 75 MG; Start 01/07/17 at 21:00 Losartan Potassium (Cozaar) 25 mg DAILY PO Last administered on 01/14/17 08:19 ; Admin Dose 25 MG; Start 01/08/17 at 09:00 Gabapentin (Neurontin) 300 mg TID PO Last administered on 01/14/17 12:17; Admin Dose 300 MG; Start 01/07/17 at 21:00 Polyethylene Glycol (Miralax) 17 gm DAILY PRN GTB CONSTIPATION Last administered on 01/11/17 08:56; Admin Dose 17 GM; Start 01/09/17 at 17:00 Pantoprazole (Protonix Tab) 40 mg DAILY@06 PO Last administered on 01/14/17 07 :51; Admin Dose 40 MG; Start 01/10/17 at 06:00 Bisacodyl (Dulcolax) 5 mg DAILY PRN PO CONSTIPATION Last administered on 08:56; Admin Dose 5 MG; Start 01/10/17 at 16:00 Docusate Sodium (Colace) 100 mg BID PO Last administered on 01/14/17 08:18; Admin Dose 100 MG; Start 01/11/17 at 09:00 Assessment/Plan Chief Complaint/Hosp Course Assessment 1. Patient admitted with shortness of breath due to hypercapnic respiratory failure likely from severe hypoventilation. 2. History of diabetes and hypertension. 3. Chronic pain. 4. History of fibromyalgia. 5. Possibly cervical spine pathology. Plan 1. Continue current recommendations 2. Aspiration precautions 3. Consider [facility] Problems: JU[facility] M CHAND [facility], [facility] Jan 14, 2017 14:34
--- NOTE | 2017-01-14 17:05 | CONS ---
Date/Time of Note Date/Time of Note DATE: 01/14/17 TIME: 17:03 Consult Date/Type/Reason Admit Date/Time Jan 07, 2017 at 05:41 Initial Consult Date 01/08/17 Type of Consultation: Neurology Reason for Consultation eval for weakness Ordering Provider: KRISTOPHER REED Subjective no new changes exam is stable Objective Vital Signs Date Time Temp Pulse Resp B/P Pulse Ox O2 Delivery O2 Flow Rate FiO2 01/14/17 16:00 89 01/14/17 15:32 98.4 20 123/61 100 01/14/17 08:00 Nasal Cannula 2.0 01/14/17 05:30 40 Intake and Output 01/13/17 01/13/17 01/14/17 15:00 23:00 07:00 Intake Total 300 ml Balance 300 ml Exam Exam Constitutional: alert, oriented, well developed Psych: nl mood/affect, no complaints Head: atraumatic, normocephalic Eyes: EOMI, nl conjunctiva, nl lids, nl sclera ENMT: mucosa pink and moist, nl external ears & nose, nl lips & teeth, nl nasal mucosa & septum Neck: non-tender, supple Respiratory: clear to auscultation, normal air movement Cardiovascular: nl pulses, regular rate and rhythm Gastrointestinal: nl liver, spleen, soft Musculoskeletal: nl extremities to inspection Extremities: normal pulses Neurological: FREIGHT CLERK II-XII intact, nl mental status, nl speech (Mild right sided weakness) Skin: nl turgor, rash or lesions Lymph: nl lymph nodes Results/Medications Result Diagram: 01/14/17 0711 01/14/17 0711 Results 24 hrs Laboratory Tests Test 01/14/17 07:11 White Blood Count 4.2 L Red Blood Count 3.92 L Hemoglobin 11.6 L Hematocrit 38.1 Mean Corpuscular Volume 97.2 Mean Corpuscular Hemoglobin 29.6 Mean Corpuscular Hemoglobin Concent 30.4 L Red Cell Distribution Width 13.5 Platelet Count 250 Mean Platelet Volume 9.9 Neutrophils % 58.8 Lymphocytes % 26.6 Monocytes % 8.4 Eosinophils % 5.0 Basophils % 1.2 Nucleated Red Blood Cells % 0.0 Neutrophils # 2.5 Lymphocytes # 1.1 Monocytes # 0.4 Eosinophils # 0.2 Basophils # 0.1 Nucleated Red Blood Cells # 0.0 Sodium Level 142 Potassium Level 3.6 Chloride Level 99 Carbon Dioxide Level 39 H Anion Gap 8 Blood Urea Nitrogen 11 Creatinine 0.62 Glucose Level 124 Calcium Level 9.1 Medications Current Medications Hydralazine HCl (Apresoline) 20 mg Q6H PRN IV for SBP >165 Last administered on 01/07/17 11:52; Admin Dose 20 MG; Start 01/07/17 at 11:30 Atorvastatin Calcium (Lipitor) 40 mg QHS PO Last administered on 01/13/17 20: 33; Admin Dose 40 MG; Start 01/07/17 at 21:00 Bupropion HCl (Wellbutrin) 75 mg BID PO Last administered on 01/14/17 08:18; Admin Dose 75 MG; Start 01/07/17 at 21:00 Losartan Potassium (Cozaar) 25 mg DAILY PO Last administered on 01/14/17 08:19 ; Admin Dose 25 MG; Start 01/08/17 at 09:00 Gabapentin (Neurontin) 300 mg TID PO Last administered on 01/14/17 12:17; Admin Dose 300 MG; Start 01/07/17 at 21:00 Polyethylene Glycol (Miralax) 17 gm DAILY PRN GTB CONSTIPATION Last administered on 01/11/17 08:56; Admin Dose 17 GM; Start 01/09/17 at 17:00 Pantoprazole (Protonix Tab) 40 mg DAILY@06 PO Last administered on 01/14/17 07 :51; Admin Dose 40 MG; Start 01/10/17 at 06:00 Bisacodyl (Dulcolax) 5 mg DAILY PRN PO CONSTIPATION Last administered on 08:56; Admin Dose 5 MG; Start 01/10/17 at 16:00 Docusate Sodium (Colace) 100 mg BID PO Last administered on 01/14/17 08:18; Admin Dose 100 MG; Start 01/11/17 at 09:00 Assessment/Plan Chief Complaint/Hosp Course 66 yo female with history of cervical degenerative disease, frequent falls prior SDH admitted with worsening SOB. CTH showed no acute process, sub-acute/chronic ischemic changes notable in Right MCA territory diffuse small vessel disease. MRI Brain w/o contrast chronic microvascular changes, no acute ischemic disease MRI Cervical Spine w/o contrast : Multilevel degenerative changes most pronounced at C4-C5 where there is a circumferential disc osteophyte complex with impinging the spinal cord with moderate to severe spinal canal stenosis. There is moderate to severe bilateral foraminal stenosis. This likely affects the exiting bilateral C5 nerve roots. Recommendations: Examination not concerning for myelopathy B12 wnl would also recommend further outpatient EMG/NCV studies to evaluate for neuromuscular disease Speech evaluation Continue PT recommended outpatient PT Problems: FABRICIO PRITCHETT MD Jan 14, 2017 17:05
--- NOTE | 2017-01-14 17:31 | PN ---
Date/Time of Note Date/Time of Note DATE: 01/14/17 TIME: 17:28 Assessment/Plan VTE Prophylaxis VTE Prophylaxis Intervention: SCD's Lines/Catheters IV C[facility]ter Type (from [facility] Saline Lock Urinary Cath still in place: No Assessment/Plan Chief Complaint/Hosp Course Patient is comfortable at rest, on supplemental oxygen via nasal cannula and BiPAP overnight. Plan of care discussed with patient's daughter at the bedside. Continue physical therapy. 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 Continue oxygen supplementation and breathing treatments. Dr. Davenport is following in pulmonology consultation. - Acute coronary syndrome ruled out. Dr. Patel is following is following and cardiology consultation. - Cervical degenerative disease with spinal canal stenosis. Dr. Sullivan is following in neurology consultation with recommend further outpatient EMG/NCV studies to evaluate for neuromuscular disease. Dr Duggan is evaluated patient in neurosurgery. - Hx of subdural hematoma. - Hypertension, continue Cozaar - Hyperlipidemia, continue statin - Fibromyalgia, continue Wellbutrin - Constipation, continue bowel regimen Further recommendations based on clinical course. Plan of care discussed with Dr. Venegas. Exam/Review of Systems Vital Signs Vitals Vital Signs Date Time Temp Pulse Resp B/P Pulse Ox O2 Delivery O2 Flow Rate FiO2 01/14/17 16:00 89 01/14/17 15:32 98.4 20 123/61 100 01/14/17 08:00 Nasal Cannula 2.0 01/14/17 05:30 40 Intake and Output 01/13/17 01/13/17 01/14/17 15:00 23:00 07:00 Intake Total 300 ml Balance 300 ml Exam Constitutional: alert, oriented Neck: supple Respiratory: normal air movement Cardiovascular: regular rate and rhythm Gastrointestinal: non-tender, soft Musculoskeletal: muscle weakness Results Result Diagram: 01/14/17 0711 01/14/17 0711 Results 24 hrs Laboratory Tests Test 01/14/17 07:11 White Blood Count 4.2 L Red Blood Count 3.92 L Hemoglobin 11.6 L Hematocrit 38.1 Mean Corpuscular Volume 97.2 Mean Corpuscular Hemoglobin 29.6 Mean Corpuscular Hemoglobin Concent 30.4 L Red Cell Distribution Width 13.5 Platelet Count 250 Mean Platelet Volume 9.9 Neutrophils % 58.8 Lymphocytes % 26.6 Monocytes % 8.4 Eosinophils % 5.0 Basophils % 1.2 Nucleated Red Blood Cells % 0.0 Neutrophils # 2.5 Lymphocytes # 1.1 Monocytes # 0.4 Eosinophils # 0.2 Basophils # 0.1 Nucleated Red Blood Cells # 0.0 Sodium Level 142 Potassium Level 3.6 Chloride Level 99 Carbon Dioxide Level 39 H Anion Gap 8 Blood Urea Nitrogen 11 Creatinine 0.62 Glucose Level 124 Calcium Level 9.1 Medications Medications Current Medications Hydralazine HCl (Apresoline) 20 mg Q6H PRN IV for SBP >165 Last administered on 01/07/17 11:52; Admin Dose 20 MG; Start 01/07/17 at 11:30 Atorvastatin Calcium (Lipitor) 40 mg QHS PO Last administered on 01/13/17 20: 33; Admin Dose 40 MG; Start 01/07/17 at 21:00 Bupropion HCl (Wellbutrin) 75 mg BID PO Last administered on 01/14/17 08:18; Admin Dose 75 MG; Start 01/07/17 at 21:00 Losartan Potassium (Cozaar) 25 mg DAILY PO Last administered on 01/14/17 08:19 ; Admin Dose 25 MG; Start 01/08/17 at 09:00 Gabapentin (Neurontin) 300 mg TID PO Last administered on 01/14/17 12:17; Admin Dose 300 MG; Start 01/07/17 at 21:00 Polyethylene Glycol (Miralax) 17 gm DAILY PRN GTB CONSTIPATION Last administered on 01/11/17 08:56; Admin Dose 17 GM; Start 01/09/17 at 17:00 Pantoprazole (Protonix Tab) 40 mg DAILY@06 PO Last administered on 01/14/17 07 :51; Admin Dose 40 MG; Start 01/10/17 at 06:00 Bisacodyl (Dulcolax) 5 mg DAILY PRN PO CONSTIPATION Last administered on 08:56; Admin Dose 5 MG; Start 01/10/17 at 16:00 Docusate Sodium (Colace) 100 mg BID PO Last administered on 01/14/17 08:18; Admin Dose 100 MG; Start 01/11/17 at 09:00 KRISTOPHER REED Jan 14, 2017 17:31
[2017-01-14] MEDS: ATORVASTATIN 40 MG TAB PO SCH (20:47)
[2017-01-15] VITALS (14 sets, daily range): BP systolic 114–137; BP diastolic 61–73; PULSE 82–100; RESP 20–22
[2017-01-15] MEDS: PANTOPRAZOLE (EC) 40 MG TAB PO SCH (06:40)
[2017-01-15 07:29] LABS: BASOPHIL # 0.1 10^3/ul (0.0-0.1); BASOPHILS % 1.3 % (0.0-2.0); EOSINOPHILS # 0.2 10^3/ul (0.0-0.5); EOSINOPHILS % 5.3 % (0.0-7.0); HEMATOCRIT 39.7 % (37.0-47.0); HEMOGLOBIN 12.5 g/dl (12.0-16.0); LYMPHOCYTES # 1.3 10^3/ul (0.8-2.9); LYMPHOCYTES % 29.2 % (15.0-51.0); MEAN CORPUSCULAR HEMOGLOBIN 30.2 pg (29.0-33.0); MEAN CORPUSCULAR HGB CONC 31.5 g/dl (32.0-37.0); MEAN CORPUSCULAR VOLUME 95.9 fl (82.0-101.0); MEAN PLATELET VOLUME 9.9 fl (7.4-10.4); MONOCYTE # 0.4 10^3/ul (0.3-0.9); MONOCYTES % 7.9 % (0.0-11.0); NEUTROPHIL # 2.6 10^3/ul (1.6-7.5); NEUTROPHILS % 56.1 % (39.0-77.0); PLATELET COUNT 297 10^3/UL (140-415); RED BLOOD COUNT 4.14 10^6/ul (4.20-5.40); RED CELL DISTRIBUTION WIDTH 13.3 % (11.5-14.5); WHITE BLOOD COUNT 4.6 10^3/ul (4.8-10.8)
[2017-01-15 08:17] LABS: CALCIUM 9.3 mg/dl (8.4-10.2); CREATININE 0.6 mg/dl (0.44-1.00); POTASSIUM 3.6 mmol/L (3.5-5.1)
[2017-01-15] MEDS: DOCUSATE SODIUM 100 MG CAP PO SCH ×2 (08:45→20:49)
[2017-01-15] MEDS: LOSARTAN 25 MG TAB PO SCH (08:45)
[2017-01-15] MEDS: BUPROPION 75 MG TAB PO SCH ×2 (08:45→20:49)
[2017-01-15] MEDS: GABAPENTIN 300 MG CAP PO SCH ×3 (08:45→20:49)
--- NOTE | 2017-01-15 10:52 | CONS ---
Date/Time of Note Date/Time of Note DATE: 01/15/17 TIME: 10:51 Consult Date/Type/Reason Admit Date/Time Jan 07, 2017 at 05:41 Initial Consult Date 01/08/17 Type of Consultation: Pulm Ordering Provider: KRISTOPHER REED Subjective Much improved today. awake alert oriented. Objective Vital Signs Date Time Temp Pulse Resp B/P Pulse Ox O2 Delivery O2 Flow Rate FiO2 01/15/17 08:00 82 01/15/17 07:31 98.3 20 137/68 99 01/15/17 04:25 3.0 01/15/17 04:00 Nasal Cannula 01/15/17 02:00 40 Intake and Output 01/14/17 01/14/17 01/15/17 15:00 23:00 07:00 Intake Total 250 ml Balance 250 ml Exam GENERAL: Elderly lady appears comfortable at rest VITAL SIGNS: per chart NECK: Supple. No JVD or lymphadenopathy. CARDIAC EXAM: S1, S2. No added sounds or murmurs. CHEST: clear bilaterally, No added sounds, rales or wheezes ABDOMEN: Soft, nontender. No guarding or rebound. EXTREMITIES: No cyanosis, clubbing or edema. NEUROLOGIC: Generalized weakness. No focal deficits. Results/Medications Result Diagram: 01/15/17 0629 01/15/17 0629 Results 24 hrs Laboratory Tests Test 01/15/17 06:29 White Blood Count 4.6 L Red Blood Count 4.14 L Hemoglobin 12.5 Hematocrit 39.7 Mean Corpuscular Volume 95.9 Mean Corpuscular Hemoglobin 30.2 Mean Corpuscular Hemoglobin Concent 31.5 L Red Cell Distribution Width 13.3 Platelet Count 297 Mean Platelet Volume 9.9 Neutrophils % 56.1 Lymphocytes % 29.2 Monocytes % 7.9 Eosinophils % 5.3 Basophils % 1.3 Nucleated Red Blood Cells % 0.0 Neutrophils # 2.6 Lymphocytes # 1.3 Monocytes # 0.4 Eosinophils # 0.2 Basophils # 0.1 Nucleated Red Blood Cells # 0.0 Sodium Level 140 Potassium Level 3.6 Chloride Level 98 Carbon Dioxide Level 35 H Anion Gap 11 Blood Urea Nitrogen 11 Creatinine 0.60 Glucose Level 135 Calcium Level 9.3 Medications Current Medications Hydralazine HCl (Apresoline) 20 mg Q6H PRN IV for SBP >165 Last administered on 01/07/17 11:52; Admin Dose 20 MG; Start 01/07/17 at 11:30 Atorvastatin Calcium (Lipitor) 40 mg QHS PO Last administered on 01/14/17 20: 47; Admin Dose 40 MG; Start 01/07/17 at 21:00 Bupropion HCl (Wellbutrin) 75 mg BID PO Last administered on 01/15/17 08:45; Admin Dose 75 MG; Start 01/07/17 at 21:00 Losartan Potassium (Cozaar) 25 mg DAILY PO Last administered on 01/15/17 08:45 ; Admin Dose 25 MG; Start 01/08/17 at 09:00 Gabapentin (Neurontin) 300 mg TID PO Last administered on 01/15/17 08:45; Admin Dose 300 MG; Start 01/07/17 at 21:00 Polyethylene Glycol (Miralax) 17 gm DAILY PRN GTB CONSTIPATION Last administered on 01/11/17 08:56; Admin Dose 17 GM; Start 01/09/17 at 17:00 Pantoprazole (Protonix Tab) 40 mg DAILY@06 PO Last administered on 01/15/17 06 :40; Admin Dose 40 MG; Start 01/10/17 at 06:00 Bisacodyl (Dulcolax) 5 mg DAILY PRN PO CONSTIPATION Last administered on 08:56; Admin Dose 5 MG; Start 01/10/17 at 16:00 Docusate Sodium (Colace) 100 mg BID PO Last administered on 01/15/17 08:45; Admin Dose 100 MG; Start 01/11/17 at 09:00 Assessment/Plan Chief Complaint/Hosp Course Assessment 1. Patient admitted with shortness of breath due to hypercapnic respiratory failure likely from severe hypoventilation. Improved. 2. History of diabetes and hypertension. 3. Chronic pain. 4. History of fibromyalgia. 5. Possibly cervical spine pathology. Plan 1. Continue current recommendations 2. Aspiration precautions 3. abg on room air. home. O2 if low Pa02. dc ok with me. Problems: JUAN M CHAND MD, [facility] Jan 15, 2017 10:52
[2017-01-15 12:32] LABS: AADO2 Arterial 20.8 mmHg (7.0-24.0); Allen Test ACCEPTAB; Arterial Base Excess 9.5 mmol/L (-3.0-3); Arterial COHb 0.1 % (0.0-3.0); Arterial Fraction of Oxyhgb 92.2 % (93.0-99.0); Arterial HCO3 35.8 mmol/L (22.0-26.0); Arterial MetHb 0.1 % (0.0-1.5); Arterial Total Hemglobin 14.1 g/dl (12.0-18.0); MODE ROOM AIR
--- NOTE | 2017-01-15 14:40 | PN ---
Date/Time of Note Date/Time of Note DATE: 01/15/17 TIME: 14:38 Assessment/Plan VTE Prophylaxis VTE Prophylaxis Intervention: SCD's Lines/Catheters IV [facility]from [facility] Saline Lock Urinary Cath still in place: No Assessment/Plan Chief Complaint/Hosp Course Pending ABC for eval for home O2 on RA. No acute events overnight. 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 Continue oxygen supplementation and breathing treatments. Dr. Davenport is following in pulmonology consultation. - Acute coronary syndrome ruled out. Dr. Patel is following is following and cardiology consultation. - Cervical degenerative disease with spinal canal stenosis. Dr. Sullivan is following in neurology consultation with recommend further outpatient EMG/NCV studies to evaluate for neuromuscular disease. Dr Duggan is evaluated patient in neurosurgery. - Hx of subdural hematoma. - Hypertension, continue Cozaar - Hyperlipidemia, continue statin - Fibromyalgia, continue Wellbutrin - Constipation, continue bowel regimen Further recommendations based on clinical course. Plan of care discussed with Dr. Venegas. Problems: Exam/Review of Systems Vital Signs Vitals Vital Signs Date Time Temp Pulse Resp B/P Pulse Ox O2 Delivery O2 Flow Rate FiO2 01/15/17 12:00 92 01/15/17 11:31 98.6 20 128/61 98 01/15/17 07:30 Nasal Cannula 3.0 01/15/17 02:00 40 Intake and Output 01/14/17 01/14/17 01/15/17 15:00 23:00 07:00 Intake Total 250 ml Balance 250 ml Exam Constitutional: alert, oriented Neck: supple Respiratory: normal air movement Cardiovascular: regular rate and rhythm Gastrointestinal: non-tender, soft Musculoskeletal: muscle weakness Results Result Diagram: 01/15/17 0629 01/15/17 0629 Results 24 hrs Laboratory Tests Test 01/15/17 06:29 01/15/17 12:00 White Blood Count 4.6 L Red Blood Count 4.14 L Hemoglobin 12.5 Hematocrit 39.7 Mean Corpuscular Volume 95.9 Mean Corpuscular Hemoglobin 30.2 Mean Corpuscular Hemoglobin Concent 31.5 L Red Cell Distribution Width 13.3 Platelet Count 297 Mean Platelet Volume 9.9 Neutrophils % 56.1 Lymphocytes % 29.2 Monocytes % 7.9 Eosinophils % 5.3 Basophils % 1.3 Nucleated Red Blood Cells % 0.0 Neutrophils # 2.6 Lymphocytes # 1.3 Monocytes # 0.4 Eosinophils # 0.2 Basophils # 0.1 Nucleated Red Blood Cells # 0.0 Sodium Level 140 Potassium Level 3.6 Chloride Level 98 Carbon Dioxide Level 35 H Anion Gap 11 Blood Urea Nitrogen 11 Creatinine 0.60 Glucose Level 135 Calcium Level 9.3 Blood Gas Specimen Source Blood arterial Arterial Blood Date Drawn 01/15/2017 12:10:52 PM Arterial Blood pH (Temp corrected) 7.427 Arterial Blood pCO2 (Temp correct) 55.6 H Arterial Blood pO2 (Temp corrected) 62.4 L Arterial Blood HCO3 35.8 H Arterial Blood Base Excess 9.5 H Arterial Blood Oxygen Saturation 92.4 L Juan M Test ACCEPTAB Arterial Blood Gas Puncture Site Right Radial Arterial Blood Carboxyhemoglobin 0.1 Arterial Blood Methemoglobin 0.1 Blood Gas A-a O2 Differential 20.8 Oxyhemoglobin Percent 92.2 L Total Hemoglobin 14.1 Blood Gas Temperature 37.0 Blood Gas Modality ROOM AIR FiO2 21.0 Blood Gas Notified Whom JLD Blood Gas Notified Time 01/15/2017 12:32:17 PM Medications Medications Current Medications Hydralazine HCl (Apresoline) 20 mg Q6H PRN IV for SBP >165 Last administered on 01/07/17 11:52; Admin Dose 20 MG; Start 01/07/17 at 11:30 Atorvastatin Calcium (Lipitor) 40 mg QHS PO Last administered on 01/14/17 20: 47; Admin Dose 40 MG; Start 01/07/17 at 21:00 Bupropion HCl (Wellbutrin) 75 mg BID PO Last administered on 01/15/17 08:45; Admin Dose 75 MG; Start 01/07/17 at 21:00 Losartan Potassium (Cozaar) 25 mg DAILY PO Last administered on 01/15/17 08:45 ; Admin Dose 25 MG; Start 01/08/17 at 09:00 Gabapentin (Neurontin) 300 mg TID PO Last administered on 01/15/17 13:00; Admin Dose 300 MG; Start 01/07/17 at 21:00 Polyethylene Glycol (Miralax) 17 gm DAILY PRN GTB CONSTIPATION Last administered on 01/11/17 08:56; Admin Dose 17 GM; Start 01/09/17 at 17:00 Pantoprazole (Protonix Tab) 40 mg DAILY@06 PO Last administered on 01/15/17 06 :40; Admin Dose 40 MG; Start 01/10/17 at 06:00 Bisacodyl (Dulcolax) 5 mg DAILY PRN PO CONSTIPATION Last administered on 08:56; Admin Dose 5 MG; Start 01/10/17 at 16:00 Docusate Sodium (Colace) 100 mg BID PO Last administered on 01/15/17 08:45; Admin Dose 100 MG; Start 01/11/17 at 09:00 KRISTOPHER REED Jan 15, 2017 14:40
--- NOTE | 2017-01-15 16:15 | CONS ---
Date/Time of Note Date/Time of Note DATE: 01/15/17 TIME: 16:14 Assessment/Plan Assessment/Plan Additional Assessment/Plan Dyspnea C-spine moderate to severe canal stenosis Reserved ejection fraction Weakness Elevated CPK -Patient undergoing physical therapy. No new cardiac orders at the current time. Could be transferred off telemetry from a cardiac standpoint. Consultation Date/Type/Reason Admit Date/Time Jan 07, 2017 at 05:41 Initial Consult Date 01/08/17 Type of Consultation: cv Referring Provider: KRISTOPHER REED 24 HR Interval Summary Free Text/Dictation Patient seen and examined, shortness of breath is better and doing better with physical therapy Exam/Review of Systems Vital Signs Vitals Vital Signs Date Time Temp Pulse Resp B/P Pulse Ox O2 Delivery O2 Flow Rate FiO2 01/15/17 15:41 98.3 90 20 135/63 97 01/15/17 07:30 Nasal Cannula 3.0 01/15/17 02:00 40 Intake and Output 01/14/17 01/14/17 01/15/17 15:00 23:00 07:00 Intake Total 250 ml Balance 250 ml Exam Sitting in chair, no apparent distress Constitutional: alert, oriented Head: normocephalic Respiratory: other (Coarse breath sounds bilaterally, no wheezing) Cardiovascular: other (S1-S2 heard), regular rate and rhythm Gastrointestinal: bowel sounds, non-tender, soft Extremities: edema Results Result Diagram: 01/15/17 0629 01/15/17 0629 Results 24 hrs Laboratory Tests Test 01/15/17 06:29 01/15/17 12:00 White Blood Count 4.6 L Red Blood Count 4.14 L Hemoglobin 12.5 Hematocrit 39.7 Mean Corpuscular Volume 95.9 Mean Corpuscular Hemoglobin 30.2 Mean Corpuscular Hemoglobin Concent 31.5 L Red Cell Distribution Width 13.3 Platelet Count 297 Mean Platelet Volume 9.9 Neutrophils % 56.1 Lymphocytes % 29.2 Monocytes % 7.9 Eosinophils % 5.3 Basophils % 1.3 Nucleated Red Blood Cells % 0.0 Neutrophils # 2.6 Lymphocytes # 1.3 Monocytes # 0.4 Eosinophils # 0.2 Basophils # 0.1 Nucleated Red Blood Cells # 0.0 Sodium Level 140 Potassium Level 3.6 Chloride Level 98 Carbon Dioxide Level 35 H Anion Gap 11 Blood Urea Nitrogen 11 Creatinine 0.60 Glucose Level 135 Calcium Level 9.3 Blood Gas Specimen Source Blood arterial Arterial Blood Date Drawn 01/15/2017 12:10:52 PM Arterial Blood pH (Temp corrected) 7.427 Arterial Blood pCO2 (Temp correct) 55.6 H Arterial Blood pO2 (Temp corrected) 62.4 L Arterial Blood HCO3 35.8 H Arterial Blood Base Excess 9.5 H Arterial Blood Oxygen Saturation 92.4 L Juan M Test ACCEPTAB Arterial Blood Gas Puncture Site Right Radial Arterial Blood Carboxyhemoglobin 0.1 Arterial Blood Methemoglobin 0.1 Blood Gas A-a O2 Differential 20.8 Oxyhemoglobin Percent 92.2 L Total Hemoglobin 14.1 Blood Gas Temperature 37.0 Blood Gas Modality ROOM AIR FiO2 21.0 Blood Gas Notified Whom JLD Blood Gas Notified Time 01/15/2017 12:32:17 PM Medications Medications Current Medications Hydralazine HCl (Apresoline) 20 mg Q6H PRN IV for SBP >165 Last administered on 01/07/17 11:52; Admin Dose 20 MG; Start 01/07/17 at 11:30 Atorvastatin Calcium (Lipitor) 40 mg QHS PO Last administered on 01/14/17 20: 47; Admin Dose 40 MG; Start 01/07/17 at 21:00 Bupropion HCl (Wellbutrin) 75 mg BID PO Last administered on 01/15/17 08:45; Admin Dose 75 MG; Start 01/07/17 at 21:00 Losartan Potassium (Cozaar) 25 mg DAILY PO Last administered on 01/15/17 08:45 ; Admin Dose 25 MG; Start 01/08/17 at 09:00 Gabapentin (Neurontin) 300 mg TID PO Last administered on 01/15/17 13:00; Admin Dose 300 MG; Start 01/07/17 at 21:00 Polyethylene Glycol (Miralax) 17 gm DAILY PRN GTB CONSTIPATION Last administered on 01/11/17 08:56; Admin Dose 17 GM; Start 01/09/17 at 17:00 Pantoprazole (Protonix Tab) 40 mg DAILY@06 PO Last administered on 01/15/17 06 :40; Admin Dose 40 MG; Start 01/10/17 at 06:00 Bisacodyl (Dulcolax) 5 mg DAILY PRN PO CONSTIPATION Last administered on 08:56; Admin Dose 5 MG; Start 01/10/17 at 16:00 Docusate Sodium (Colace) 100 mg BID PO Last administered on 01/15/17 08:45; Admin Dose 100 MG; Start 01/11/17 at 09:00 Carlos Patel DO Jan 15, 2017 16:14
[2017-01-15] MEDS: BISACODYL (EC) 5 MG TAB PO PRN (20:49)
[2017-01-15] MEDS: ATORVASTATIN 40 MG TAB PO SCH (20:49)
[2017-01-16] VITALS (16 sets, daily range): BP systolic 112–139; BP diastolic 60–71; PULSE 84–100; RESP 16–22
[2017-01-16] MEDS: PANTOPRAZOLE (EC) 40 MG TAB PO SCH (05:33)
[2017-01-16] MEDS: GABAPENTIN 300 MG CAP PO SCH ×2 (08:49→13:30)
[2017-01-16] MEDS: DOCUSATE SODIUM 100 MG CAP PO SCH (08:49)
[2017-01-16] MEDS: BUPROPION 75 MG TAB PO SCH (08:49)
[2017-01-16] MEDS: LOSARTAN 25 MG TAB PO SCH (08:50)
--- NOTE | 2017-01-16 11:46 | CONS ---
Date/Time of Note Date/Time of Note DATE: 01/16/17 TIME: 11:45 Consult Date/Type/Reason Admit Date/Time Jan 07, 2017 at 05:41 Initial Consult Date 01/08/17 Type of Consultation: pulm Ordering Provider: KRISTOPHER REED Subjective Comfortable this morning. Denies shortness of breath. Did not qualify for home O2 based on arterial blood gas and oxygen saturations. Objective Vital Signs Date Time Temp Pulse Resp B/P Pulse Ox O2 Delivery O2 Flow Rate FiO2 01/16/17 11:34 97.4 96 16 112/61 100 01/16/17 11:11 Room Air 01/16/17 04:55 40 01/15/17 23:11 3.0 Intake and Output 01/15/17 01/15/17 01/16/17 15:00 23:00 07:00 Intake Total 600 ml 160 ml Balance 600 ml 160 ml Exam GENERAL: Elderly lady appears comfortable at rest VITAL SIGNS: per chart NECK: Supple. No JVD or lymphadenopathy. CARDIAC EXAM: S1, S2. No added sounds or murmurs. CHEST: clear bilaterally, No added sounds, rales or wheezes ABDOMEN: Soft, nontender. No guarding or rebound. EXTREMITIES: No cyanosis, clubbing or edema. NEUROLOGIC: Generalized weakness. No focal deficits. Results/Medications Result Diagram: 01/15/17 0601/15/17 0629 Results 24 hrs Laboratory Tests Test 01/15/17 12:00 Blood Gas Specimen Source Blood arterial Arterial Blood Date Drawn 01/15/2017 12:10:52 PM Arterial Blood pH (Temp corrected) 7.427 Arterial Blood pCO2 (Temp correct) 55.6 H Arterial Blood pO2 (Temp corrected) 62.4 L Arterial Blood HCO3 35.8 H Arterial Blood Base Excess 9.5 H Arterial Blood Oxygen Saturation 92.4 L Juan M Test ACCEPTAB Arterial Blood Gas Puncture Site Right Radial Arterial Blood Carboxyhemoglobin 0.1 Arterial Blood Methemoglobin 0.1 Blood Gas A-a O2 Differential 20.8 Oxyhemoglobin Percent 92.2 L Total Hemoglobin 14.1 Blood Gas Temperature 37.0 Blood Gas Modality ROOM AIR FiO2 21.0 Blood Gas Notified Whom JLD Blood Gas Notified Time 01/15/2017 12:32:17 PM Medications Current Medications Hydralazine HCl (Apresoline) 20 mg Q6H PRN IV for SBP >165 Last administered on 01/07/17 11:52; Admin Dose 20 MG; Start 01/07/17 at 11:30 Atorvastatin Calcium (Lipitor) 40 mg QHS PO Last administered on 01/15/17 20: 49; Admin Dose 40 MG; Start 01/07/17 at 21:00 Bupropion HCl (Wellbutrin) 75 mg BID PO Last administered on 01/16/17 08:49; Admin Dose 75 MG; Start 01/07/17 at 21:00 Losartan Potassium (Cozaar) 25 mg DAILY PO Last administered on 01/16/17 08:50 ; Admin Dose 25 MG; Start 01/08/17 at 09:00 Gabapentin (Neurontin) 300 mg TID PO Last administered on 01/16/17 08:49; Admin Dose 300 MG; Start 01/07/17 at 21:00 Polyethylene Glycol (Miralax) 17 gm DAILY PRN GTB CONSTIPATION Last administered on 01/11/17 08:56; Admin Dose 17 GM; Start 01/09/17 at 17:00 Pantoprazole (Protonix Tab) 40 mg DAILY@06 PO Last administered on 01/16/17 05 :33; Admin Dose 40 MG; Start 01/10/17 at 06:00 Bisacodyl (Dulcolax) 5 mg DAILY PRN PO CONSTIPATION Last administered on 20:49; Admin Dose 5 MG; Start 01/10/17 at 16:00 Docusate Sodium (Colace) 100 mg BID PO Last administered on 01/16/17 08:49; Admin Dose 100 MG; Start 01/11/17 at 09:00 Assessment/Plan Chief Complaint/Hosp Course Assessment 1. Patient admitted with shortness of breath due to hypercapnic respiratory failure likely from severe hypoventilation. Improved. 2. History of diabetes and hypertension. 3. Chronic pain. 4. History of fibromyalgia. 5. Possibly cervical spine pathology. Plan 1. Continue current recommendations 2. Aspiration precautions 3. Currently does not qualify for home oxygen. dc ok with me. Problems: JUAN M CHAND MD, [facility] Jan 16, 2017 11:45
--- NOTE | 2017-01-16 12:38 | CONS ---
Date/Time of Note Date/Time of Note DATE: 01/16/17 TIME: 12:37 Assessment/Plan Assessment/Plan Additional Assessment/Plan Dyspnea C-spine moderate to severe canal stenosis Reserved ejection fraction Weakness Elevated CPK -Patient undergoing physical therapy. No new cardiac orders at the current time. Could be transferred off telemetry from a cardiac standpoint. Consultation Date/Type/Reason Admit Date/Time Jan 07, 2017 at 05:41 Initial Consult Date 01/08/17 Type of Consultation: cv Referring Provider: KRISTOPHER REED 24 HR Interval Summary Free Text/Dictation Continues to feel better, more active therapy, denies shortness of breath Exam/Review of Systems Vital Signs Vitals Vital Signs Date Time Temp Pulse Resp B/P Pulse Ox O2 Delivery O2 Flow Rate FiO2 01/16/17 12:19 100 01/16/17 11:34 97.4 16 112/61 100 01/16/17 11:11 Room Air 01/16/17 04:55 40 01/15/17 23:11 3.0 Intake and Output 01/15/17 01/15/17 01/16/17 15:00 23:00 07:00 Intake Total 600 ml 160 ml Balance 600 ml 160 ml Exam Sitting in chair Constitutional: alert, oriented Head: normocephalic Respiratory: other (Coarse breath sounds bilaterally, no wheezing) Cardiovascular: other (S1-S2.), regular rate and rhythm Gastrointestinal: bowel sounds, non-tender, soft Extremities: edema Results Result Diagram: 01/15/17 0629 01/15/17 06 Medications Medications Current Medications Hydralazine HCl (Apresoline) 20 mg Q6H PRN IV for SBP >165 Last administered on 01/07/17 11:52; Admin Dose 20 MG; Start 01/07/17 at 11:30 Atorvastatin Calcium (Lipitor) 40 mg QHS PO Last administered on 01/15/17 20: 49; Admin Dose 40 MG; Start 01/07/17 at 21:00 Bupropion HCl (Wellbutrin) 75 mg BID PO Last administered on 01/16/17 08:49; Admin Dose 75 MG; Start 01/07/17 at 21:00 Losartan Potassium (Cozaar) 25 mg DAILY PO Last administered on 01/16/17 08:50 ; Admin Dose 25 MG; Start 01/08/17 at 09:00 Gabapentin (Neurontin) 300 mg TID PO Last administered on 01/16/17 08:49; Admin Dose 300 MG; Start 01/07/17 at 21:00 Polyethylene Glycol (Miralax) 17 gm DAILY PRN GTB CONSTIPATION Last administered on 01/11/17 08:56; Admin Dose 17 GM; Start 01/09/17 at 17:00 Pantoprazole (Protonix Tab) 40 mg DAILY@06 PO Last administered on 01/16/17 05 :33; Admin Dose 40 MG; Start 01/10/17 at 06:00 Bisacodyl (Dulcolax) 5 mg DAILY PRN PO CONSTIPATION Last administered on 20:49; Admin Dose 5 MG; Start 01/10/17 at 16:00 Docusate Sodium (Colace) 100 mg BID PO Last administered on 01/16/17 08:49; Admin Dose 100 MG; Start 01/11/17 at 09:00 Carlos Patel DO Jan 16, 2017 12:38
--- NOTE | 2017-01-16 12:52 | PN ---
Date/Time of Note Date/Time of Note DATE: 01/16/17 TIME: 12:47 Assessment/Plan VTE Prophylaxis VTE Prophylaxis Intervention: ambulation, SCD's Lines/Catheters IV Catheter Type (from Nrsg): Saline Lock Central line still needed: No Urinary Cath still in place: No Assessment/Plan Assessment/Plan impression Progressive weakness x 6 months MRI shows some central cord stenosis and candidate for PCDF C3-6 Pt has shown some improvement in strength with pt/ot and family has opted to hold off on any surgical intervention Family would like to continue pt/ot and complete outpt EMG/NCS study Plan follow up with Dr. Duggan in 2 weeks or when EMG/NCS is completed discussed plan with Daughters dc planning when medically stable Subjective 24 Hr Interval Summary Free Text/Dictation S: NAD Daughter at bedside and states " she is doing better and walker 50ft today" Exam/Review of Systems Vital Signs Vitals Vital Signs Date Time Temp Pulse Resp B/P Pulse Ox O2 Delivery O2 Flow Rate FiO2 01/16/17 12:19 100 01/16/17 11:34 97.4 16 112/61 100 01/16/17 11:11 Room Air 01/16/17 04:55 40 01/15/17 23:11 3.0 Intake and Output 01/15/17 01/15/17 01/16/17 15:00 23:00 07:00 Intake Total 600 ml 160 ml Balance 600 ml 160 ml Exam Neurological: other (MS: AAOX4 CN: PERRL M: FC x 4 , increasing strength to rle ) Results Result Diagram: 01/15/1729 01/15/17628 Medications Medications Current Medications Hydralazine HCl (Apresoline) 20 mg Q6H PRN IV for SBP >165 Last administered on 01/07/17 11:52; Admin Dose 20 MG; Start 01/07/17 at 11:30 Atorvastatin Calcium (Lipitor) 40 mg QHS PO Last administered on 01/15/17 20: 49; Admin Dose 40 MG; Start 01/07/17 at 21:00 Bupropion HCl (Wellbutrin) 75 mg BID PO Last administered on 01/16/17 08:49; Admin Dose 75 MG; Start 01/07/17 at 21:00 Losartan Potassium (Cozaar) 25 mg DAILY PO Last administered on 01/16/17 08:50 ; Admin Dose 25 MG; Start 01/08/17 at 09:00 Gabapentin (Neurontin) 300 mg TID PO Last administered on 01/16/17 08:49; Admin Dose 300 MG; Start 01/07/17 at 21:00 Polyethylene Glycol (Miralax) 17 gm DAILY PRN GTB CONSTIPATION Last administered on 01/11/17 08:56; Admin Dose 17 GM; Start 01/09/17 at 17:00 Pantoprazole (Protonix Tab) 40 mg DAILY@06 PO Last administered on 01/16/17 05 :33; Admin Dose 40 MG; Start 01/10/17 at 06:00 Bisacodyl (Dulcolax) 5 mg DAILY PRN PO CONSTIPATION Last administered on 20:49; Admin Dose 5 MG; Start 01/10/17 at 16:00 Docusate Sodium (Colace) 100 mg BID PO Last administered on 01/16/17 08:49; Admin Dose 100 MG; Start 01/11/17 at 09:00 CORINE THOMAS NP Jan 16, 2017 12:52
[2017-01-16] MEDS ORDERED: PANT40TA4 PO (16:42)
[2017-01-16] MEDS ORDERED: GABA300C16 PO (16:42)
[2017-01-16] MEDS ORDERED: DOCU-216 PO (16:42)
[2017-01-16] MEDS ORDERED: BISA5TAB6 PO (16:42)
--- NOTE | 2017-01-16 16:47 | PN ---
Date/Time of Note Date/Time of Note DATE: 01/16/17 TIME: 16:46 Assessment/Plan VTE Prophylaxis VTE Prophylaxis Intervention: SCD's Lines/Catheters IV [facility] Saline Lock Urinary Cath still in place: No Assessment/Plan Chief Complaint/Hosp Course D/c home upon arrangement for O2 and Bipap, d/w daughter at the bedside. 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 Continue oxygen supplementation and breathing treatments. Dr. Davenport is following in pulmonology consultation. - Acute coronary syndrome ruled out. Dr. Patel is following is following and cardiology consultation. - Cervical degenerative disease with spinal canal stenosis. Dr. Sullivan is following in neurology consultation with recommend further outpatient EMG/NCV studies to evaluate for neuromuscular disease. Dr Duggan is evaluated patient in neurosurgery. - Hx of subdural hematoma. - Hypertension, continue Cozaar - Hyperlipidemia, continue statin - Fibromyalgia, continue Wellbutrin - Constipation, continue bowel regimen Further recommendations based on clinical course. Plan of care discussed with Dr. Venegas. Problems: Exam/Review of Systems Vital Signs Vitals Vital Signs Date Time Temp Pulse Resp B/P Pulse Ox O2 Delivery O2 Flow Rate FiO2 01/16/17 16:22 92 01/16/17 15:02 3.0 01/16/17 11:34 97.4 16 112/61 100 01/16/17 11:11 Room Air 01/16/17 04:55 40 Intake and Output 01/15/17 01/15/17 01/16/17 15:00 23:00 07:00 Intake Total 600 ml 160 ml Balance 600 ml 160 ml Exam Constitutional: alert, oriented Neck: supple Respiratory: normal air movement Cardiovascular: regular rate and rhythm Gastrointestinal: non-tender, soft Musculoskeletal: muscle weakness Results Result Diagram: 01/15/1729 01/15/17628 Medications Medications Current Medications Hydralazine HCl (Apresoline) 20 mg Q6H PRN IV for SBP >165 Last administered on 01/07/17 11:52; Admin Dose 20 MG; Start 01/07/17 at 11:30 Atorvastatin Calcium (Lipitor) 40 mg QHS PO Last administered on 01/15/17 20: 49; Admin Dose 40 MG; Start 01/07/17 at 21:00 Bupropion HCl (Wellbutrin) 75 mg BID PO Last administered on 01/16/17 08:49; Admin Dose 75 MG; Start 01/07/17 at 21:00 Losartan Potassium (Cozaar) 25 mg DAILY PO Last administered on 01/16/17 08:50 ; Admin Dose 25 MG; Start 01/08/17 at 09:00 Gabapentin (Neurontin) 300 mg TID PO Last administered on 01/16/17 13:30; Admin Dose 300 MG; Start 01/07/17 at 21:00 Polyethylene Glycol (Miralax) 17 gm DAILY PRN GTB CONSTIPATION Last administered on 01/11/17 08:56; Admin Dose 17 GM; Start 01/09/17 at 17:00 Pantoprazole (Protonix Tab) 40 mg DAILY@06 PO Last administered on 01/16/17 05 :33; Admin Dose 40 MG; Start 01/10/17 at 06:00 Bisacodyl (Dulcolax) 5 mg DAILY PRN PO CONSTIPATION Last administered on 20:49; Admin Dose 5 MG; Start 01/10/17 at 16:00 Docusate Sodium (Colace) 100 mg BID PO Last administered on 01/16/17 08:49; Admin Dose 100 MG; Start 01/11/17 at 09:00 KRISTOPHER REED Jan 16, 2017 16:47
--- NOTE | 2017-01-18 21:11 | DS ---
Date/Time of Note Date/Time of Note DATE: 01/18/17 TIME: 21:09 Discharge Summary Admission/Discharge Info Admit Date/Time Jan 07, 2017 at 05:41 Discharge Date/Time Jan 16, 2017 at 22:30 Patient Condition: Stable Hx of Present Illness The patient is a 66-year-old female, with history of fibromyalgia, osteoarthritis, and cervical stenosis, with bilateral upper extremity weakness. Patient with history of subdural hematoma diagnosed in April of this year and significant decrease in mobility. Patient is awake, alert; however, cannot provide detailed history. Most of the history was obtained from patient's daughter at the bedside, who is the caregiver for the patient. Apparently, patient was seen by her primary care physician, Dr. Rodriguez. Family stated that the patient deteriorated in mobility and also got more confused and forgetful, and patient was ordered to undergo MRI of the brain. However, patient could not undergo outpatient MRI, due to the fact that she could not lie down flat and appeared in respiratory distress and was sent to the emergency room of [facility]. On evaluation in the emergency room, patient underwent chest x- ray, which revealed shallow inspiration, bilateral low lung zone subsegmental atelectasis, probable small left pleural effusion and degenerative changes within the spine. A superimposed infiltrate cannot be excluded. Patient also underwent brain CT, which may revealed mild diffuse atrophy, microangiopathic ischemic changes, and minimal mucosal thickening, ethmoid air cells. Patient also was placed on supplemental oxygen for complaints of shortness of breath. Patient underwent ABG, which revealed respiratory acidosis. Patient denies any fever. Denies any nausea or vomiting; however, complains of mild epigastric tenderness on palpation. During the examination patient also complains of left upper extremity pain and mild chest pain, and patient is admitted for further evaluation and management to telemetry floor. Hospital Course D/c home upon arrangement for O2 and Bipap, d/w daughter at the bedside. 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 Continue oxygen supplementation and breathing treatments. Dr. Davenport is following in pulmonology consultation. - Acute coronary syndrome ruled out. Dr. Patel is following is following and cardiology consultation. - Cervical degenerative disease with spinal canal stenosis. Dr. Sullivan is following in neurology consultation with recommend further outpatient EMG/NCV studies to evaluate for neuromuscular disease. Dr Duggan is evaluated patient in neurosurgery. - Hx of subdural hematoma. - Hypertension, continue Cozaar - Hyperlipidemia, continue statin - Fibromyalgia, continue Wellbutrin - Constipation, resolved Home Meds Active Scripts Pantoprazole* (Pantoprazole*) 40 Mg Tablet., 40 MG PO DAILY@06 for 30 Days Prov:KRISTOPHER REED 01/16/17 Docusate Sodium (Dok) 100 Mg Capsule, 100 MG PO BID for 30 Days, CAP Prov:KASSIE REEDLANA 01/16/17 Gabapentin* (Gabapentin*) 300 Mg Capsule, 300 MG PO TID for 30 Days, CAP Prov:KRISTOPHER REED 01/16/17 Bisacodyl* (Bisacodyl*) 5 Mg Tablet., 5 MG PO DAILY Y for CONSTIPATION, #30 Prov:KRISTOPHER REED 01/16/17 Reported Medications Losartan Potassium* (Losartan Potassium*) 25 Mg Tablet, 25 MG PO DAILY, TAB 01/07/17 Atorvastatin* (Atorvastatin*) 40 Mg Tablet, 40 MG PO QHS, #30 TAB 01/07/17 Bupropion Hcl (Wellbutrin) 75 Mg Tablet, 75 MG PO BID, TAB 01/07/17 Discontinued Reported Medications Gabapentin Enacarbil (Horizant) 300 Mg Tablet.er, 900 MG PO TID, TAB 01/07/17 Docusate Sodium (SOF-LAX) 100 Mg Capsule, 100 MG PO, CAP 01/07/17 Diclofenac Sodium* (Diclofenac Sodium*) 50 Mg Tablet., 50 MG PO BID, #60 TAB 01/07/17 Follow-up Plan d/c after home O2 and bipap arranged, f/up with PMD in 1-2 weeks, f/up for EMG/ NVC study, f/up with Dr Duggan after EMG/ NVC studies done, d/c with home health PT services. Primary Care Provider Not On Staff Doctor KRISTOPHER REED Jan 18, 2017 21:11
== END 2017-01-16 22:30 | disposition home or self-care (01) | DRG 189 ==
LOC: E/R 01:15 → TEL 05:41
PROVIDERS: ADMIT Internal Medicine; ATTEND Internal Medicine
DX: J96.22 Acute and chronic respiratory failure with hypercapnia (principal); E87.2 Acidosis; I10 Essential (primary) hypertension; E78.5 Hyperlipidemia, unspecified; M79.7 Fibromyalgia; Z86.73 Personal history of transient ischemic attack (TIA), and cerebral infarction without residual deficits; E11.9 Type 2 diabetes mellitus without complications; M50.30 Other cervical disc degeneration, unspecified cervical region; M54.2 Cervicalgia; G89.29 Other chronic pain; Z91.81 History of falling; K59.00 Constipation, unspecified; M19.90 Unspecified osteoarthritis, unspecified site; R74.8 Abnormal levels of other serum enzymes; R00.0 Tachycardia, unspecified
CPT/HCPCS: 36415; 36600; 70450; 70551; 71010; 72142; 72157; 74000; 80048; 80053; 80061; 82085; 82550; 82553; 82607; 82803; 83874; 83880; 84443; 84484; 85025; 85610; 85730; 92526; 92610; 93005; 93306; 93970; 94640; 94660; 94664; 97110; 97116; 97163; 97530; J0360; J3480